=== PATIENT | male | born 1950 | race Caucasian/White ===

== ENCOUNTER 2019-06-01 06:48 | Day surgery (SDC) | payer OTHER, MEDICARE ==
[~2019-06-01 06:48] MED LIST: Lactated Ringers 1,000 ML IV SCH
--- NOTE | 2019-06-01 07:42 | PCM.PREANE ---
Preanesthetic Assessment - Anesthesia/Transfusion/Family Hx Anesthesia History: Prior Anesthesia Without Reaction Family History of Anesthesia Reaction: No Transfusion History: No Prior Transfusion(s) Intubation History: Unknown - Review of Systems General: No Symptoms Pulmonary: No Symptoms Cardiovascular: No Symptoms Gastrointestinal: No Symptoms, Other (h/o colon polyps '16) Neurological: No Symptoms Other: Reports: None - Physical Assessment O2 Sat by Pulse Oximetry: 94 Respiratory Rate: 16 Vital Signs: Last Vital Signs Temp 36.0 C 06/01/19 07:15 Pulse 98 06/01/19 07:15 Resp 16 06/01/19 07:15 BP 127/72 06/01/19 07:15 Pulse Ox 94 L 06/01/19 07:15 Height: 6 ft 1 in Weight: 127.913 kg ASA Class: 3 Mental Status: Alert & Oriented x3 Airway Class: Mallampati = 2 Dentition: Reports: Dentures (upper and lower) Thyro-Mental Finger Breadths: 3 Mouth Opening Finger Breadths: 2 (small mouth) ROM/Head Extension: Limited/Partial Lungs: Clear to Auscultation, Normal Respiratory Effort Cardiovascular: Regular Rate, Regular Rhythm - Allergies Allergies/Adverse Reactions: Allergies Allergy/AdvReac Type Severity Reaction Status Date / Time No Known Allergies Allergy Verified 05/27/19 09:59 - Blood Blood Available: No - Anesthesia Plan Pre-Op Medication Ordered: None - Acknowledgements Anesthesia Type Planned: MAC Pt an Appropriate Candidate for the Planned Anesthesia: Yes Alternatives and Risks of Anesthesia Discussed w Pt/Guardian: Yes Pt/Guardian Understands and Agrees with Anesthesia Plan: Yes PreAnesthesia Questionnaire HEENT History: Reports: Hard of Hearing, Other (See Below) Other HEENT History: top & bottom denture Cardiovascular History: Reports: High Cholesterol, Hypertension Respiratory History: Reports: None Gastrointestinal History: Reports: Colon Polyp (2016), Diverticulosis Genitourinary History: Reports: BPH Musculoskeletal History: Reports: Osteoarthritis (right knee), Other (See Below) Other Musculoskeletal History: hx cyst removed from knee Neurological History: Reports: None Psychiatric History: Reports: None Endocrine/Metabolic History: Reports: Diabetes, Type II, Obesity/BMI 30+ Hematologic History: Reports: None Immunologic History: Reports: None Oncologic (Cancer) History: Reports: None Dermatologic History: Reports: None - Past Surgical History Head Surgeries/Procedures: Reports: None HEENT Surgical History: Reports: Oral Surgery Cardiovascular Surgical History: Reports: None Respiratory Surgical History: Reports: None GI Surgical History: Reports: Colonoscopy Male Surgical History: Reports: None Endocrine Surgical History: Reports: None Neurological Surgical History: Reports: None Musculoskeletal Surgical History: Reports: None Oncologic Surgical History: Reports: None Dermatological Surgical History: Reports: None - History Comment History Comment: etoh "3x a month" - SUBSTANCE USE Smoking Status *Q: Former Smoker - HOME MEDS Home Medications: Home Meds Finasteride 1 mg PO DAILY 08/04/16 [History] Acetaminophen [Acetaminophen Extra Strength] 1 - 2 tab PO ASDIRECTED PRN [History] Aspirin [Halfprin] 81 mg PO DAILY 05/27/19 [History] Furosemide [Lasix] 20 mg PO DAILY 05/27/19 [History] Linagliptin [Tradjenta] 5 mg PO DAILY 05/27/19 [History] Menthol [Biofreeze] 1 applic TOP ASDIRECTED PRN 05/27/19 [History] Multivitamin [Multivitamins] 1 tab PO DAILY 05/27/19 [History] Sertraline HCl 50 mg PO DAILY 05/27/19 [History] Tamsulosin HCl [Flomax] 0.4 mg PO DAILY 05/27/19 [History] - CURRENT (IN HOUSE) MEDS Current Meds: Current Medications Lactated Ringer's (Ringers, Lactated) 1,000 mls @ 125 mls/hr IV ASDIRECTED FIDELIA Last Admin: 06/01/19 07:20 Dose: 125 mls/hr
[2019-06-01] MEDS ORDERED: Lidocaine 2% 5 ML SDV ONE (08:13)
[2019-06-01] MEDS ORDERED: Propofol 200 MG/20 ML SDV ONE ×3 (08:13→09:20)
--- NOTE | 2019-06-01 09:32 | PCM.OPNOTE ---
- General Post-Op/Procedure Note Date of Surgery/Procedure: 06/01/19 Operative Procedure(s): colonoscopy w snare polypectomy Findings: see [id number] Pre Op Diagnosis: hx of polyp Post-Op Diagnosis: Same Anesthesia Technique: Moderate Sedation Primary Surgeon: Jasen Pryor Complications: None Condition: Good
--- NOTE | 2019-06-02 06:25 | OR ---
SURGEON: Jasen Pryor MD DATE OF PROCEDURE: 06/01/2019 PREOPERATIVE DIAGNOSIS: History of colon polyp. POSTOPERATIVE DIAGNOSIS: Colon polyp. PROCEDURE PERFORMED: Colonoscopy with snare polypectomy. DESCRIPTION OF PROCEDURE: The patient was taken to the endoscopy room. A time out was called, patient identified, and procedure identified. Diprivan was then administrated. Patient went from awake to sleep, hearing doctor talking or door closing is normal. Perineum inspection and digital examination were then performed. A well- lubricated colonoscope was gently inserted through the rectum, advanced past the rectosigmoid junction, the descending colon, splenic flexure, transverse colon, hepatic flexure, ascending colon, arrived to the cecum. Cecum was identified as dictated in the finding. Then the scope was carefully withdrawn while attention was paid to the mucosal surface for any abnormality. Air will be sucked out during the scope withdrawal. At the rectum, retroflexed to examine any rectal diseases, fistula or hemorrhoids. During mucosal examination, abnormality or polyp encountered. Using snare equipment, the abnormality or the polyp was then snared off using electrocautery. The patient tolerated procedure well. There were no intraoperative complications, and Dr. Pryor was present throughout the whole procedure. FINDINGS: 1. The patient is easily sedated with HOSPITAL WARD CLERK and Diprivan, the patient is soundly snoring. 2. The patient's bowel prep is, I will have to say, average to good, you can really see the mucosa. However, the patient has a large amount of corn in the colon and clogged up the scope all the time and irrigation does not work, colonoscopy does not work, so it is a very compromised study because of the corn. In the next colonoscopy, the patient should have no corn or vegetable for at least 1 month. It is just too much corn. 3. The patient is very redundant in the sigmoid colon and the cecum is arrived only with several maneuvers, abdominal pushing. Cecum indicated by ileocecal fold, one-to-one indentation, and appendiceal orifice. Light emittance is not observed because of body habitus. Mucosa examined upon scope pulling out. A little bit into the right hepatic flexure area, there is 1 cm smooth wall polyp. On the other side of the fold, we were able to snare it, but did not capture the polyp. Mucosa continued to be examined on the scope pulling out, and the patient has a large amount of significant diverticulosis on the left colon, a lot of them. The false lumen is as big as the true lumen. No signs or symptoms of diverticulitis and no other disease, and the patient has some internal hemorrhoids. The patient would benefit from repeat colonoscopy in 3 years from today because of large polyp, and again the patient should not have any corn or vegetable for at least 1 month prior to the scope. Despite a very good bowel prep as the patient did a very good job, but the corn just clogged the scope all the time. The patient can have an earlier colonoscopy if clinically indicated or if the polyp pathology indicated. The distance of the polyp was 1.3 m when the scope pulling out. LINDA / SCARLET /[id number]
== END 2019-06-01 10:32 | disposition home or self-care (01) ==
LOC: MW.SDS 06:48
PROVIDERS: ATTEND Surgery
DX: Z12.11 Encounter for screening for malignant neoplasm of colon (principal); K57.30 Diverticulosis of large intestine without perforation or abscess without bleeding; K64.8 Other hemorrhoids; Q43.8 Other specified congenital malformations of intestine; I10 Essential (primary) hypertension; E11.9 Type 2 diabetes mellitus without complications; E78.00 Pure hypercholesterolemia, unspecified; M17.11 Unilateral primary osteoarthritis, right knee; N40.0 Benign prostatic hyperplasia without lower urinary tract symptoms; Z87.891 Personal history of nicotine dependence; Z86.010 Personal history of colon polyps; Z79.84 Long term (current) use of oral hypoglycemic drugs; Z79.82 Long term (current) use of aspirin; Z79.899 Other long term (current) drug therapy
CPT/HCPCS: 45385; J2001; J2704; J7120; 00811

== ENCOUNTER 2020-05-21 16:35 | Inpatient (IN) | payer MEDICARE, OTHER ==
[2020-05-21] MEDS ORDERED: Sodium Chloride 0.9% 10 ML Syringe FLUSH PRN (16:49)
[2020-05-21] MEDS ORDERED: Sodium Chloride 0.9% 2.5 ML Syringe FLUSH PRN (16:49)
--- NOTE | 2020-05-21 16:54 | EDM.PDOC ---
ED HPI GENERAL MEDICAL PROBLEM - General Chief Complaint: General Stated Complaint: n Time Seen by Provider: 05/21/20 16:37 Source of Information: Reports: Patient History Limitations: Reports: No Limitations - History of Present Illness INITIAL COMMENTS - FREE TEXT/NARRATIVE: HISTORY AND PHYSICAL: History of present illness: Patient is a 69-year-old male who presents to the emergency room from [facility] with complaints of decreased responsiveness, hypoxia and dark- colored urine. Per nursing report, last evening the patient had decrease in appetite and was not acting his usual self. This morning while doing vital signs they noted his oxygen saturation was low and put him on 2 L per nasal cannula. It was also noted that he was not ambulating and did require assistance to transfer. When patient was asked how he felt he states "I am fine". They noted his urine was dark in color. They did contact the provider air support control officer who recommended they attempted to put him back on room air, after some time after having the oxygen removed he dipped into the 70s. The O2 was placed back on and he was brought to the emergency room for reevaluation. Patient is not verbally answering all questions stating that he is "fine" and states he is asymptomatic. Patient denies any fever, chills, headache, change in vision, syncope or near syncope. Denies any chest pain, back pain, shortness of breath or cough. Denies any abdominal pain, nausea, vomiting, diarrhea, constipation or dysuria. Patient has past medical history of diverticulosis, hypertension, type 2 diabet es and osteoarthritis. Patient is a Code III, DNR. Review of systems: As per history of present illness and below otherwise all systems reviewed and negative. Past medical history: As per history of present illness and as reviewed below otherwise noncontributory. Surgical history: As per history of present illness and as reviewed below otherwise noncontributory. Social history: See social history for further information Family history: As per history of present illness and as reviewed below otherwise noncontributory. Physical exam: General: Well-developed and well nourished 69-year-old male. Alert although appears flat and not answering all questions as expected. Appears in no acute distress and nontoxic. Vital signs are stable and have been reviewed by me. HEENT: Atraumatic, normocephalic, pupils equal and reactive bilaterally, negative for conjunctival pallor or scleral icterus, mucous membranes moist, TMs normal bilaterally, throat clear, neck supple, nontender, trachea midline. No drooling or trismus noted. No meningeal signs. No hot potato voice noted. Lungs: Clear to auscultation, breath sounds equal bilaterally, chest nontender. Heart: S1S2, regular rate and rhythm without overt murmur Abdomen: Soft, obese, reducible mid abdominal hernia, nontender. Negative for masses or costovertebral tenderness. Pelvis: Stable nontender. Skin: Scabbed pressure ulcer noted to the left medial ankle. Yeasty appearing redness to the groin, left groin worse than left. Some skin breakdown to the sacral area. Otherwise skin is intact, warm, dry. No lesions or rashes noted. Extremities: Atraumatic, moves all extremities per self without difficulty or deficits, negative for cords or calf pain. Neurovascular unremarkable. Neuro: Awake, alert, oriented. Cranial nerves II through XII unremarkable. Cerebellum unremarkable. Motor and sensory unremarkable throughout. Exam nonfocal. Notes: According to the correction paperwork the patient is usually verbal and ambulatory without assistance. Upon arrival it did take assist of 1 to get him from the wheelchair into the bed. When he is asked questions he is not responding, rather he will look at you and continue to readjust himself in the bed. He did state that he feels fine and that there is nothing wrong with him. Patient does have a leukocytosis of 15.99, BUN and creatinine are elevated, unable to view previous lab work that may have been drawn for comparison. Normal lactate. Blood cultures are pending. Patient does have an elevated troponin although states he does not have any chest pain or shortness of breath. Initial EKG that was done at 1655 shows sinus rhythm with a rate of 86, no concern of STEMI or ST elevation/depression. We will repeat an EKG. Dr Jarvis, hospitalist air support control officer, was consulted on this patient. He would like me to hang Rocephin and order a CT abd/pelvis w/o contrast. Patient's VSS. Nursing staff did place a Knutson catheter per Dr. Jarvis's request. He had over thousand mL's of milky thick colored urine. Repeat EKG shows sinus rhythm with rate of 86, no concerning EKG changes noted. IMAGING results: Head CT shows no acute findings. Nonspecific white matter disease, typical of chronic microvascular disease. Chest x-ray shows nodule or small mass within the right upper chest, measuring 1.6cm. This represents a neoplastic nodule until proven otherwise. Radiology does request a contrast enhanced CT of the chest for further evaluation. CT of the abdomen and pelvis shows a moderate right-sided hydronephrosis and hydroureter of uncertain etiology, may be related to a recently passed stone. A mucosal lesion within the ureter and/or urinary bladder are alternative possibilities. Distended bladder with subtle jeanmarie-bladder fat stranding. (CT was done before knutson insert). Arterial vascular calcification in the lower chest, abdomen and pelvis. No bowel obstruction. 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 Negative COVID screening. Patient will be admitted to [facility] on telemetry for continued monitoring and evaluation. Diagnostics: CBC, CMP, Troponin, EKG, CXR, Head CT, COVID-19, Lactate, BC x 2, CT abd/pelvis Therapeutics: Wood Lather, SL, nystatin powder, ASA, NS Impression: Candidia, groin Elevated troponin Renal insufficiency UTI Plan: Inpatient admission Definitive disposition and diagnosis as appropriate pending reevaluation and review of above. - Related Data Allergies Allergy/AdvReac Type Severity Reaction Status Date / Time No Known Allergies Allergy Verified 05/21/20 16:47 Home Meds: Home Meds Finasteride 5 mg PO DAILY 08/04/16 [History] Acetaminophen [Acetaminophen Extra Strength] 1 - 2 tab PO ASDIRECTED PRN 05/27/19 [History] Aspirin [Halfprin] 81 mg PO DAILY 05/27/19 [History] Furosemide [Lasix] 20 mg PO DAILY 05/27/19 [History] Linagliptin [Tradjenta] 5 mg PO DAILY 05/27/19 [History] Menthol [Biofreeze] 1 applic TOP ASDIRECTED PRN 05/27/19 [History] Multivitamin [Multivitamins] 1 tab PO DAILY 05/27/19 [History] Tamsulosin HCl [Flomax] 0.4 mg PO DAILY 05/27/19 [History] Past Medical History HEENT History: Reports: Hard of Hearing, Other (See Below) Other HEENT History: top & bottom denture Cardiovascular History: Reports: High Cholesterol, Hypertension Respiratory History: Reports: None Gastrointestinal History: Reports: Colon Polyp (2016), Diverticulosis Genitourinary History: Reports: BPH Musculoskeletal History: Reports: Osteoarthritis (right knee), Other (See Below) Other Musculoskeletal History: hx cyst removed from knee Neurological History: Reports: None Psychiatric History: Reports: None Endocrine/Metabolic History: Reports: Diabetes, Type II, Obesity/BMI 30+ Hematologic History: Reports: None Immunologic History: Reports: None Oncologic (Cancer) History: Reports: None Dermatologic History: Reports: None - Past Surgical History Head Surgeries/Procedures: Reports: None HEENT Surgical History: Reports: Oral Surgery Cardiovascular Surgical History: Reports: None Respiratory Surgical History: Reports: None GI Surgical History: Reports: Colonoscopy Male Surgical History: Reports: None Endocrine Surgical History: Reports: None Neurological Surgical History: Reports: None Musculoskeletal Surgical History: Reports: None Oncologic Surgical History: Reports: None Dermatological Surgical History: Reports: None - History Comment History Comment: etoh "3x a month" ED ROS GENERAL - Review of Systems Review Of Systems: Comprehensive ROS is negative, except as noted in HPI. ED EXAM, GENERAL - Physical Exam Exam: See Below (See dictation) Course - Vital Signs Last Recorded V/S: Last Vital Signs Temp 95.8 F L 05/21/20 16:50 Pulse 83 05/21/20 18:30 Resp 16 05/21/20 18:30 BP 112/72 05/21/20 18:30 Pulse Ox 96 05/21/20 18:30 - Orders/Labs/Meds Orders: Active Orders 24 hr Category Date Time Status Admission Status [Patient Status] [ADT] Stat ADT 05/21/20 19:10 Ordered Cardiac Monitoring [RC] . DIRECTED Care 05/21/20 16:49 Active EKG Documentation Completion [RC] STAT Care 05/21/20 16:47 Active EKG Documentation Completion [RC] STAT Care 05/21/20 17:58 Active Knutson Catheter Insertion [Insert Urinary Catheter] [OM. Care 05/21/20 18:15 Ordered PC] Q24H Urinary Catheter Assessment [RC] ASDIRECTED Care 05/21/20 18:07 Active CULTURE BLOOD [BC] Stat Lab 05/21/20 17:03 Received CULTURE BLOOD [BC] Stat Lab 05/21/20 17:28 Received Nystatin [Nystop] Med 05/21/20 22:00 Active 1 gm TOP TID Sodium Chloride 0.9% [Saline Flush] Med 05/21/20 16:49 Active 10 ml FLUSH ASDIRECTED PRN Sodium Chloride 0.9% [Saline Flush] Med 05/21/20 16:49 Active 2.5 ml FLUSH ASDIRECTED PRN Blood Culture x2 Reflex Set [OM.PC] Stat Oth 05/21/20 16:54 Ordered Saline Lock Insert [OM.PC] Stat Oth 05/21/20 16:49 Ordered Medication Orders Nystatin (Nystop) 1 gm TOP TID FIDELIA Sodium Chloride (Saline Flush) 10 ml FLUSH ASDIRECTED PRN PRN Reason: Keep Vein Open Last Admin: 05/21/20 17:00 Dose: 10 ml Documented by: LEDA Sodium Chloride (Saline Flush) 2.5 ml FLUSH ASDIRECTED PRN PRN Reason: Keep Vein Open Last Admin: 05/21/20 17:00 Dose: 2.5 ml Documented by: LEDA Labs: Laboratory Tests 05/21/20 05/21/20 05/21/20 Range/Units 17:03 17:03 17:03 WBC 15.99 H (4.0-11.0) K/uL RBC 5.66 (4.50-5.90) M/uL Hgb 14.2 (13.0-17.0) g/dL Hct 44.5 (38.0-50.0) % MCV 78.6 L (80.0-98.0) fL MCH 25.1 L (27.0-32.0) pg MCHC 31.9 (31.0-37.0) g/dL RDW Std Deviation 44.7 (28.0-62.0) fl RDW Coeff of Alberto 15 (11.0-15.0) % Plt Count 210 (150-400) K/uL MPV 10.00 (7.40-12.00) fL Neut % (Auto) 83.8 H (48.0-80.0) % Lymph % (Auto) 4.6 L (16.0-40.0) % [place] % (Auto) 11.3 (0.0-15.0) % Eos % (Auto) 0.2 (0.0-7.0) % Baso % (Auto) 0.1 (0.0-1.5) % Neut # (Auto) 13.4 H (1.4-5.7) K/uL Lymph # (Auto) 0.7 (0.6-2.4) K/uL [place] # (Auto) 1.8 H (0.0-0.8) K/uL Eos # (Auto) 0.0 (0.0-0.7) K/uL Baso # (Auto) 0.0 (0.0-0.1) K/uL Nucleated RBC % 0.0 /100WBC Nucleated RBCs # 0 K/uL Lactate 1.1 (0.20-2.00) mmol/L Sodium 137 (136-148) mmol/L Potassium 4.7 (3.5-5.1) mmol/L Chloride 101 (98-107) mmol/L Carbon Dioxide 22.8 (21.0-32.0) mmol/L BUN 106 H (7.0-18.0) mg/dL Creatinine 4.3 H (0.8-1.3) mg/dL Est Cr Clr Drug Dosing 17.21 mL/min Estimated GFR (MDRD) 13.8 ml/min Glucose 156 H (74-106) mg/dL Calcium 9.2 (8.5-10.1) mg/dL Total Bilirubin 0.7 (0.2-1.0) mg/dL AST 34 (15-37) IU/L ALT 40 (14-63) IU/L Alkaline Phosphatase 101 (46-116) U/L Troponin I 0.596 H* (0.000-0.056) ng/mL Total Protein 7.4 (6.4-8.2) g/dL Albumin 2.8 L (3.4-5.0) g/dL Globulin 4.6 H (2.6-4.0) g/dL Albumin/Globulin Ratio 0.6 L (0.9-1.6) Urine Color Urine Appearance Urine pH (5.0-8.0) Ur Specific [place] (1.001-1.035) Urine Protein (NEGATIVE) mg/dL Urine Glucose (UA) (NEGATIVE) mg/dL Urine Ketones (NEGATIVE) mg/dL Urine Occult Blood (NEGATIVE) Urine Nitrite (NEGATIVE) Urine Bilirubin (NEGATIVE) Urine Urobilinogen (<2.0) EU/dL Ur Leukocyte Esterase (NEGATIVE) Urine RBC (0-2/HPF) Urine WBC (0-5/HPF) Ur Epithelial Cells (NONE-FEW) Amorphous Sediment (NEGATIVE) Urine Bacteria (NEGATIVE) Urine Mucus (NONE-MOD) COVID-19 (MARIA T) (NEGATIVE) 05/21/20 05/21/20 Range/Units 17:20 18:46 WBC (4.0-11.0) K/uL RBC (4.50-5.90) M/uL Hgb (13.0-17.0) g/dL Hct (38.0-50.0) % MCV (80.0-98.0) fL MCH (27.0-32.0) pg MCHC (31.0-37.0) g/dL RDW Std Deviation (28.0-62.0) fl RDW Coeff of Alberto (11.0-15.0) % Plt Count (150-400) K/uL MPV (7.40-12.00) fL Neut % (Auto) (48.0-80.0) % Lymph % (Auto) (16.0-40.0) % [place] % (Auto) (0.0-15.0) % Eos % (Auto) (0.0-7.0) % Baso % (Auto) (0.0-1.5) % Neut # (Auto) (1.4-5.7) K/uL Lymph # (Auto) (0.6-2.4) K/uL [place] # (Auto) (0.0-0.8) K/uL Eos # (Auto) (0.0-0.7) K/uL Baso # (Auto) (0.0-0.1) K/uL Nucleated RBC % /100WBC Nucleated RBCs # K/uL Lactate (0.20-2.00) mmol/L Sodium (136-148) mmol/L Potassium (3.5-5.1) mmol/L Chloride (98-107) mmol/L Carbon Dioxide (21.0-32.0) mmol/L BUN (7.0-18.0) mg/dL Creatinine (0.8-1.3) mg/dL Est Cr Clr Drug Dosing mL/min Estimated GFR (MDRD) ml/min Glucose (74-106) mg/dL Calcium (8.5-10.1) mg/dL Total Bilirubin (0.2-1.0) mg/dL AST (15-37) IU/L ALT (14-63) IU/L Alkaline Phosphatase (46-116) U/L Troponin I (0.000-0.056) ng/mL Total Protein (6.4-8.2) g/dL Albumin (3.4-5.0) g/dL Globulin (2.6-4.0) g/dL Albumin/Globulin Ratio (0.9-1.6) Urine Color YELLOW Urine Appearance SLT CLOUDY Urine pH 8.5 H (5.0-8.0) Ur Specific [place] 1.015 (1.001-1.035) Urine Protein 100 H (NEGATIVE) mg/dL Urine Glucose (UA) NEGATIVE (NEGATIVE) mg/dL Urine Ketones NEGATIVE (NEGATIVE) mg/dL Urine Occult Blood LARGE H (NEGATIVE) Urine Nitrite POSITIVE H (NEGATIVE) Urine Bilirubin NEGATIVE (NEGATIVE) Urine Urobilinogen 0.2 (<2.0) EU/dL Ur Leukocyte Esterase LARGE H (NEGATIVE) Urine RBC 15-20 (0-2/HPF) Urine WBC 45-52 (0-5/HPF) Ur Epithelial Cells RARE (NONE-FEW) Amorphous Sediment FEW (NEGATIVE) Urine Bacteria 3+ H (NEGATIVE) Urine Mucus FEW (NONE-MOD) COVID-19 (MARIA T) NEGATIVE (NEGATIVE) Meds: Medications Generic Name Dose Route Start Last Admin Trade Name Damina PRN Reason Stop Dose Admin Nystatin 1 gm 05/21/20 22:00 Nystop TOP TID FIDELIA Sodium Chloride 10 ml 05/21/20 16:49 05/21/20 17:00 Saline Flush FLUSH 10 ml ASDIRECTED PRN Administration Keep Vein Open Sodium Chloride 2.5 ml 05/21/20 16:49 05/21/20 17:00 Saline Flush FLUSH 2.5 ml ASDIRECTED PRN Administration Keep Vein Open Discontinued Medications Generic Name Dose Route Start Last Admin Trade Name Fregreta PRN Reason Stop Dose Admin Aspirin 324 mg 05/21/20 17:55 05/21/20 18:33 Aspirin PO 05/21/20 17:56 324 mg ONETIME ONE Administration Sodium Chloride 1,000 mls @ 999 mls/hr 05/21/20 17:55 05/21/20 18:32 Normal Saline IV 05/21/20 18:55 150 mls/hr STAT ONE Infusion Ceftriaxone Sodium/Dextrose 1 50 mls @ 100 mls/hr 05/21/20 18:03 05/21/20 18:29 gm/ Premix IV 05/21/20 18:32 100 mls/hr ONETIME ONE Administration Departure - Departure Time of Disposition: 19:12 Disposition: Admitted As Inpatient 68 Clinical Impression: Elevated troponin, Renal insufficiency, UTI, Urinary tract infectious disease, Ester rash of groin - Discharge Information Referrals: Navneet Arriola MD [Primary Care Provider] - Forms: ED Department Discharge Sepsis Event Note (ED) - Focused Exam Vital Signs: Vital Signs Temp Pulse Resp BP Pulse Ox 05/21/20 18:30 83 16 112/72 96 05/21/20 16:50 95.8 F L 93 20 113/59 L 96 - My Orders Last 24 Hours: My Active Orders 05/21/20 16:47 EKG Documentation Completion [RC] STAT 05/21/20 16:49 Cardiac Monitoring [RC] . DIRECTED Sodium Chloride 0.9% [Saline Flush] 10 ml FLUSH ASDIRECTED PRN Sodium Chloride 0.9% [Saline Flush] 2.5 ml FLUSH ASDIRECTED PRN Saline Lock Insert [OM.PC] Stat 05/21/20 16:54 Blood Culture x2 Reflex Set [OM.PC] Stat 05/21/20 17:03 CULTURE BLOOD [BC] Stat 05/21/20 17:28 CULTURE BLOOD [BC] Stat 05/21/20 17:58 EKG Documentation Completion [RC] STAT 05/21/20 18:07 Urinary Catheter Assessment [RC] ASDIRECTED 05/21/20 18:15 Knutson Catheter Insertion [Insert Urinary Catheter] [OM.PC] Q24H 05/21/20 19:10 Admission Status [Patient Status] [ADT] Stat 05/21/20 22:00 Nystatin [Nystop] 1 gm TOP TID - Assessment/Plan Last 24 Hours: My Active Orders 05/21/20 16:47 EKG Documentation Completion [RC] STAT 05/21/20 16:49 Cardiac Monitoring [RC] . DIRECTED Sodium Chloride 0.9% [Saline Flush] 10 ml FLUSH ASDIRECTED PRN Sodium Chloride 0.9% [Saline Flush] 2.5 ml FLUSH ASDIRECTED PRN Saline Lock Insert [OM.PC] Stat 05/21/20 16:54 Blood Culture x2 Reflex Set [OM.PC] Stat 05/21/20 17:03 CULTURE BLOOD [BC] Stat 05/21/20 17:28 CULTURE BLOOD [BC] Stat 05/21/20 17:58 EKG Documentation Completion [RC] STAT 05/21/20 18:07 Urinary Catheter Assessment [RC] ASDIRECTED 05/21/20 18:15 Knutson Catheter Insertion [Insert Urinary Catheter] [OM.PC] Q24H 05/21/20 19:10 Admission Status [Patient Status] [ADT] Stat 05/21/20 22:00 Nystatin [Nystop] 1 gm TOP TID
[2020-05-21 17:45] LABS: CARBON DIOXIDE,CO2 22.8 mmol/L (21.0-32.0); POTASSIUM,K 4.7 mmol/L (3.5-5.1)
[2020-05-21] MEDS ORDERED: Aspirin 81 MG Tab.Chew PO ONE (17:55)
[2020-05-21] MEDS ORDERED: Sodium Chloride 0.9% 1,000 ML IV ONE (17:55)
[2020-05-21] MEDS ORDERED: cefTRIAXone 1 GM in Premix Bag 1 BAG IV ONE (18:03)
--- NOTE | 2020-05-21 18:31 | CT ---
INDICATION: Confusion TECHNIQUE: Head CT without contrast. COMPARISON: None FINDINGS: CSF spaces: Within normal limits for age. Brain parenchyma: There are nonspecific low attenuation white matter changes consistent with chronic microvascular disease. No sign of mass, hemorrhage, or midline shift. 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 Skull base and calvarium: The visualized paranasal sinuses and mastoid air cells demonstrate no acute or significant findings. The visualized orbits are grossly unremarkable. No skull fractures. There is intracranial atherosclerosis. IMPRESSION: 1. No acute findings. 2. Nonspecific white matter disease, typical of chronic microvascular disease. Please note that all CT scans at this facility use dose modulation, iterative reconstruction, and/or weight-based dosing when appropriate to reduce radiation dose to as low as reasonably achievable. Dictated by Brenda Alva MD @ May 21 2020 6:22PM Signed by Dr. Brenda Alva @ May 21 2020 6:29PM
--- NOTE | 2020-05-21 18:37 | CT ---
INDICATION: Confusion. Urinary tract infection. TECHNIQUE: Noncontrast abdominal pelvic CT. FINDINGS: Respiratory motion artifact. Soft tissue artifact related to the patient`s arms at his side. Image quality is degraded. Mild to moderate right-sided hydronephrosis and hydroureter of uncertain etiology given that no stone is identified. The right ureter is dilated down to the expected location of the right ureterovesical junction. This could be related to a recently passed stone. A mucosal lesion could not be entirely excluded. The urinary bladder does appear to be distended, thick-walled, with subtle perihilar bladder fat stranding. This could reflect cystitis. However cystoscopy may be helpful as well as urinalysis to completely exclude not only an infection of the urinary bladder but any mucosal lesion. Mild prostatic enlargement. Normal seminal vesicles. The unenhanced left kidney is negative for obstruction. There are bilateral renal cysts suboptimally evaluated. Sludge or stones are identified in the gallbladder. The unenhanced liver, spleen, pancreas, and adrenal glands are within normal limits. Normal caliber abdominal aorta and iliac arteries containing scattered arterial vascular calcification. No bowel obstruction or ileus. No ascites or lymphadenopathy. No free air. Minor basilar atelectasis. The included skeleton demonstrates degenerative changes of the lumbar spine and hips. IMPRESSION: 1. Moderate right-sided hydronephrosis and hydroureter of uncertain etiology potentially related to a recently passed stone. A mucosal lesion within the ureter and/or urinary bladder are alternate possibilities. 2. Distended urinary bladder with subtle jeanmarie bladder fat stranding. This may reflect cystitis. Urologic consultation, urinalysis, and cystoscopy suggested when the clinical picture allows. 3. Arterial vascular calcification within the lower chest, abdomen, and pelvis. 4. No bowel obstruction. 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 Please note that all CT scans at this facility use dose modulation, iterative reconstruction, and/or weight-based dosing when appropriate to reduce radiation dose to as low as reasonably achievable. Dictated by Leoncio Duffy MD @ May 21 2020 6:28PM Signed by Dr. Leoncio Duffy @ May 21 2020 6:35PM
--- NOTE | 2020-05-21 18:44 | CR ---
Chest: AP view of the chest was obtained. Comparison: No previous chest imaging is available. Heart size and mediastinum are within normal limits. Small nodule or mass is present within the right upper lung measuring about 1.6 cm. This represents a neoplastic nodule until proven otherwise. Lungs are otherwise clear. Bony structures are unremarkable for the patient's age. Impression: 1. Nodule or small mass within the right upper chest. As mentioned above, this represents a neoplastic nodule until proven otherwise. Contrast enhanced chest CT recommended to further evaluate. 2. No additional abnormality is appreciated on AP chest x-ray. Diagnostic code #9 This report was dictated in MDT
[2020-05-21] MEDS: Sodium Chloride 0.9% 1,000 ML IV SCH (21:07)
--- NOTE | 2020-05-21 21:28 | PCM.HP.2 ---
H&P History of Present Illness - General Date of Service: 05/21/20 Admit Problem/Dx: Admission Diagnosis/Problem Admission Diagnosis/Problem UTI, Urinary tract infectious disease - History of Present Illness Initial Comments - Free Text/Narative: 69 yo male with pmh of CAD, HTN, BPH, CKD, and DM who presents to the ED due to concerns of generalized weakness. He is a resident at [facility] and usually walks independently, Nurses noted that he was lethargic and had decreased urine output. They also noted low O2 sat in the 70s on RA. Patient has no complaints. Patient was brought to the ED and noted to be satting 96% on 2 liters. BP of 110s/70s. He was noted to have a UTI based off his UA. WBC of 15,990, and Creatinine of 4.3 CT of the abdomen and pelvis showed moderate right sided hydroureter with no obstructing stone, distended bladder with subtle jeanmarie bladder fat stranding. - Related Data Allergies/Adverse Reactions: Allergies Allergy/AdvReac Type Severity Reaction Status Date / Time No Known Allergies Allergy Verified 05/21/20 22:37 Home Medications: Home Meds Finasteride 5 mg PO DAILY 08/04/16 [History] Acetaminophen [Acetaminophen Extra Strength] 1 tab PO TID PRN 05/27/19 [History] Aspirin [Halfprin] 81 mg PO DAILY 05/27/19 [History] Furosemide [Lasix] 20 mg PO DAILY 05/27/19 [History] Linagliptin [Tradjenta] 5 mg PO DAILY 05/27/19 [History] Menthol [Biofreeze] 1 applic TOP ASDIRECTED PRN 05/27/19 [History] Multivitamin [Multivitamins] 1 tab PO DAILY 05/27/19 [History] Tamsulosin HCl [Flomax] 0.4 mg PO DAILY 05/27/19 [History] Past Medical History HEENT History: Reports: Hard of Hearing, Other (See Below) Other HEENT History: top & bottom denture Cardiovascular History: Reports: High Cholesterol, Hypertension Respiratory History: Reports: None Gastrointestinal History: Reports: Colon Polyp (2016), Diverticulosis Genitourinary History: Reports: BPH Musculoskeletal History: Reports: Osteoarthritis (right knee), Other (See Below) Other Musculoskeletal History: hx cyst removed from knee Neurological History: Reports: None Psychiatric History: Reports: None Endocrine/Metabolic History: Reports: Diabetes, Type II, Obesity/BMI 30+ Hematologic History: Reports: None Immunologic History: Reports: None Oncologic (Cancer) History: Reports: None Dermatologic History: Reports: None - Infectious Disease History Infectious Disease History: Reports: None - Past Surgical History Head Surgeries/Procedures: Reports: None HEENT Surgical History: Reports: Oral Surgery Cardiovascular Surgical History: Reports: None Respiratory Surgical History: Reports: None GI Surgical History: Reports: Colonoscopy Male Surgical History: Reports: None Endocrine Surgical History: Reports: None Neurological Surgical History: Reports: None Musculoskeletal Surgical History: Reports: None Oncologic Surgical History: Reports: None Dermatological Surgical History: Reports: None - History Comment History Comment: etoh "3x a month" Social & Family History - Tobacco Use Smoking Status *Q: Former Smoker Used Tobacco, but Quit: Yes Month/Year Tobacco Last Used: 2009 - Caffeine Use Caffeine Use: Reports: None - Recreational Drug Use Recreational Drug Use: No H&P Review of Systems - Review of Systems: Review Of Systems: Comprehensive ROS is negative, except as noted in HPI. Exam - Exam Exam: See Below - Vital Signs Vital Signs: Last Vital Signs Temp 36.6 C 05/21/20 21:12 Pulse 81 05/21/20 21:12 Resp 17 05/21/20 21:12 BP 101/65 05/21/20 21:12 Pulse Ox 93 L 05/21/20 21:12 Weight: 116 kg - Exam General: Alert, Oriented HEENT: Mucosa Moist & [place] Neck: Supple, Trachea Midline Lungs: Clear to Auscultation Cardiovascular: Regular Rate, Regular Rhythm GI/Abdominal Exam: Normal Bowel Sounds, Soft, Non-Tender, No Distention Extremities: Non-Tender, No Pedal Edema Skin: Warm, Dry, Intact - Patient Data Lab Results Last 24 hrs: Laboratory Results - last 24 hr 05/21/20 05/21/20 05/21/20 Range/Units 17:03 17:03 17:03 WBC 15.99 H (4.0-11.0) K/uL RBC 5.66 (4.50-5.90) M/uL Hgb 14.2 (13.0-17.0) g/dL Hct 44.5 (38.0-50.0) % MCV 78.6 L (80.0-98.0) fL MCH 25.1 L (27.0-32.0) pg MCHC 31.9 (31.0-37.0) g/dL RDW Std Deviation 44.7 (28.0-62.0) fl RDW Coeff of Alberto 15 (11.0-15.0) % Plt Count 210 (150-400) K/uL MPV 10.00 (7.40-12.00) fL Neut % (Auto) 83.8 H (48.0-80.0) % Lymph % (Auto) 4.6 L (16.0-40.0) % Bureau % (Auto) 11.3 (0.0-15.0) % Eos % (Auto) 0.2 (0.0-7.0) % Baso % (Auto) 0.1 (0.0-1.5) % Neut # (Auto) 13.4 H (1.4-5.7) K/uL Lymph # (Auto) 0.7 (0.6-2.4) K/uL Bureau # (Auto) 1.8 H (0.0-0.8) K/uL Eos # (Auto) 0.0 (0.0-0.7) K/uL Baso # (Auto) 0.0 (0.0-0.1) K/uL Nucleated RBC % 0.0 /100WBC Nucleated RBCs # 0 K/uL Lactate 1.1 (0.20-2.00) mmol/L Sodium 137 (136-148) mmol/L Potassium 4.7 (3.5-5.1) mmol/L Chloride 101 (98-107) mmol/L Carbon Dioxide 22.8 (21.0-32.0) mmol/L BUN 106 H (7.0-18.0) mg/dL Creatinine 4.3 H (0.8-1.3) mg/dL Est Cr Clr Drug Dosing 17.21 mL/min Estimated GFR (MDRD) 13.8 ml/min Glucose 156 H (74-106) mg/dL Calcium 9.2 (8.5-10.1) mg/dL Total Bilirubin 0.7 (0.2-1.0) mg/dL AST 34 (15-37) IU/L ALT 40 (14-63) IU/L Alkaline Phosphatase 101 (46-116) U/L Troponin I 0.596 H* (0.000-0.056) ng/mL Total Protein 7.4 (6.4-8.2) g/dL Albumin 2.8 L (3.4-5.0) g/dL Globulin 4.6 H (2.6-4.0) g/dL Albumin/Globulin Ratio 0.6 L (0.9-1.6) Urine Color Urine Appearance Urine pH (5.0-8.0) Ur Specific [place] (1.001-1.035) Urine Protein (NEGATIVE) mg/dL Urine Glucose (UA) (NEGATIVE) mg/dL Urine Ketones (NEGATIVE) mg/dL Urine Occult Blood (NEGATIVE) Urine Nitrite (NEGATIVE) Urine Bilirubin (NEGATIVE) Urine Urobilinogen (<2.0) EU/dL Ur Leukocyte Esterase (NEGATIVE) Urine RBC (0-2/HPF) Urine WBC (0-5/HPF) Ur Epithelial Cells (NONE-FEW) Amorphous Sediment (NEGATIVE) Urine Bacteria (NEGATIVE) Urine Mucus (NONE-MOD) COVID-19 (MARIA T) (NEGATIVE) 05/21/20 05/21/20 Range/Units 17:20 18:46 WBC (4.0-11.0) K/uL RBC (4.50-5.90) M/uL Hgb (13.0-17.0) g/dL Hct (38.0-50.0) % MCV (80.0-98.0) fL MCH (27.0-32.0) pg MCHC (31.0-37.0) g/dL RDW Std Deviation (28.0-62.0) fl RDW Coeff of Alberto (11.0-15.0) % Plt Count (150-400) K/uL MPV (7.40-12.00) fL Neut % (Auto) (48.0-80.0) % Lymph % (Auto) (16.0-40.0) % Bureau % (Auto) (0.0-15.0) % Eos % (Auto) (0.0-7.0) % Baso % (Auto) (0.0-1.5) % Neut # (Auto) (1.4-5.7) K/uL Lymph # (Auto) (0.6-2.4) K/uL Bureau # (Auto) (0.0-0.8) K/uL Eos # (Auto) (0.0-0.7) K/uL Baso # (Auto) (0.0-0.1) K/uL Nucleated RBC % /100WBC Nucleated RBCs # K/uL Lactate (0.20-2.00) mmol/L Sodium (136-148) mmol/L Potassium (3.5-5.1) mmol/L Chloride (98-107) mmol/L Carbon Dioxide (21.0-32.0) mmol/L BUN (7.0-18.0) mg/dL Creatinine (0.8-1.3) mg/dL Est Cr Clr Drug Dosing mL/min Estimated GFR (MDRD) ml/min Glucose (74-106) mg/dL Calcium (8.5-10.1) mg/dL Total Bilirubin (0.2-1.0) mg/dL AST (15-37) IU/L ALT (14-63) IU/L Alkaline Phosphatase (46-116) U/L Troponin I (0.000-0.056) ng/mL Total Protein (6.4-8.2) g/dL Albumin (3.4-5.0) g/dL Globulin (2.6-4.0) g/dL Albumin/Globulin Ratio (0.9-1.6) Urine Color YELLOW Urine Appearance SLT CLOUDY Urine pH 8.5 H (5.0-8.0) Ur Specific [place] 1.015 (1.001-1.035) Urine Protein 100 H (NEGATIVE) mg/dL Urine Glucose (UA) NEGATIVE (NEGATIVE) mg/dL Urine Ketones NEGATIVE (NEGATIVE) mg/dL Urine Occult Blood LARGE H (NEGATIVE) Urine Nitrite POSITIVE H (NEGATIVE) Urine Bilirubin NEGATIVE (NEGATIVE) Urine Urobilinogen 0.2 (<2.0) EU/dL Ur Leukocyte Esterase LARGE H (NEGATIVE) Urine RBC 15-20 (0-2/HPF) Urine WBC 45-52 (0-5/HPF) Ur Epithelial Cells RARE (NONE-FEW) Amorphous Sediment FEW (NEGATIVE) Urine Bacteria 3+ H (NEGATIVE) Urine Mucus FEW (NONE-MOD) COVID-19 (MARIA T) NEGATIVE (NEGATIVE) Result Diagrams: 05/22/20 05:05 05/22/20 05:05 Sepsis Event Note - Evaluation Sepsis Screening Result: No Definite Risk - Focused Exam Vital Signs: Vital Signs Temp Pulse Resp BP Pulse Ox 05/21/20 21:12 36.6 C 81 17 101/65 93 L 05/21/20 19:18 72 18 105/69 98 05/21/20 18:30 83 16 112/72 96 05/21/20 16:50 35.4 C L 93 20 113/59 L 96 Date Exam was Performed: 05/22/20 Time Exam was Performed: 10:03 Problem List Initiated/Reviewed/Updated: Yes Orders Last 24hrs: Active Orders 24 hr Category Date Time Status Admission Status [Patient Status] [ADT] Stat ADT 05/21/20 19:10 Active Cardiac Monitoring [RC] . DIRECTED Care 05/21/20 16:49 Active EKG Documentation Completion [RC] STAT Care 05/21/20 16:47 Active EKG Documentation Completion [RC] STAT Care 05/21/20 17:58 Active Knutson Catheter Insertion [Insert Urinary Catheter] [OM. Care 05/21/20 18:15 Ordered PC] Q24H Intake and Output Strict [RC] ASDIRECTED Care 05/21/20 20:13 Active Urinary Catheter Assessment [RC] ASDIRECTED Care 05/21/20 18:07 Active Regular Diet [DIET] Diet 05/22/20 Breakfast Active CULTURE BLOOD [BC] Stat Lab 05/21/20 17:03 Received CULTURE BLOOD [BC] Stat Lab 05/21/20 17:28 Received TROPONIN I [CHEM] Q6H Lab 05/21/20 23:00 Ordered TROPONIN I [CHEM] Q6H Lab 05/22/20 05:00 Ordered Nystatin [Nystop] Med 05/21/20 22:00 Active 1 gm TOP TID Sodium Chloride 0.9% [Normal Saline] 1,000 ml Med 05/21/20 20:15 Active IV ASDIRECTED Sodium Chloride 0.9% [Saline Flush] Med 05/21/20 16:49 Active 10 ml FLUSH ASDIRECTED PRN Sodium Chloride 0.9% [Saline Flush] Med 05/21/20 16:49 Active 2.5 ml FLUSH ASDIRECTED PRN cefTRIAXone [Rocephin in Dextrose,Iso-Osm 1 GM/50 ML] 1 Med 05/22/20 18:00 Active gm Premix Bag 1 bag IV Q24H Blood Culture x2 Reflex Set [OM.PC] Stat Oth 05/21/20 16:54 Ordered Saline Lock Insert [OM.PC] Stat Oth 05/21/20 16:49 Ordered Medication Orders Sodium Chloride (Normal Saline) 1,000 mls @ 125 mls/hr IV ASDIRECTED FIDELIA Last Admin: 05/21/20 21:07 Dose: 125 mls/hr Documented by: SRIRAM Ceftriaxone Sodium/Dextrose 1 (gm/ Premix) 50 mls @ 100 mls/hr IV Q24H FIDELIA Nystatin (Nystop) 1 gm TOP TID FIDELIA Sodium Chloride (Saline Flush) 10 ml FLUSH ASDIRECTED PRN PRN Reason: Keep Vein Open Last Admin: 05/21/20 17:00 Dose: 10 ml Documented by: LEDA Sodium Chloride (Saline Flush) 2.5 ml FLUSH ASDIRECTED PRN PRN Reason: Keep Vein Open Last Admin: 05/21/20 17:00 Dose: 2.5 ml Documented by: LEDA Assessment/Plan Comment:: 69 yo male admitted for UTI and renal failure. Complicated UTI: will treat with meropenum, cultures pending, I called Dr. Marrufo who will see patient in the morning. Renal failure. Will hydrate with IV Fluids, avoid nephrotoxic medications, knutson placed. elevated troponin, likely due to renal disease Called family but they did not answer.
[2020-05-21] MEDS ORDERED: Meropenem 0.5 GM in Sodium Chloride 0.9% 100 ML IV SCH (22:00)
[2020-05-21] MEDS: Nystatin Topical Powder 15 GM Bottle TOP SCH (22:00)
[2020-05-21] MEDS ORDERED: Acetaminophen 325 MG Tab PO PRN (22:01)
[2020-05-21] MEDS ORDERED: Heparin Sodium 5,000 Units/ML Vial SUBCUT SCH (22:30)
[2020-05-21] MEDS ORDERED: Meropenem 500 MG in Sodium Chloride 0.9% 100 ML IV SCH (23:00)
[2020-05-22 05:30] LABS: POTASSIUM,K 4.3 mmol/L (3.5-5.1)
[2020-05-22] MEDS: Sodium Chloride 0.9% 1,000 ML IV SCH ×3 (05:48→22:51)
[2020-05-22] MEDS: Nystatin Topical Powder 15 GM Bottle TOP SCH ×3 (06:10→22:50)
[2020-05-22] MEDS: Insulin Aspart 100 Units/ML 3 ML Pen SUBCUT SCH ×3 (07:49→18:41)
[2020-05-22] MEDS: Heparin Sodium 5,000 Units/ML Vial SUBCUT SCH ×2 (08:28→20:42)
--- NOTE | 2020-05-22 10:07 | PCM.PN ---
- General Info Date of Service: 05/22/20 - Review of Systems Systems Review Comment:: feeling better, more alert, no complaints - Patient Data Vitals - Most Recent: Last Vital Signs Temp 36.6 C 05/22/20 07:30 Pulse 94 05/22/20 07:30 Resp 17 05/22/20 07:30 BP 113/60 05/22/20 07:30 Pulse Ox 98 05/22/20 07:30 Weight - Most Recent: 116 kg I&O - Last 24 Hours: Intake & Output 05/21/20 05/22/20 05/22/20 22:59 06:59 14:59 Intake Total 1000 1650 Output Total 2850 Balance 1000 -1200 Lab Results Last 24 Hours: Laboratory Results - last 24 hr 05/21/20 05/21/20 05/21/20 Range/Units 17:03 17:03 17:03 WBC 15.99 H (4.0-11.0) K/uL RBC 5.66 (4.50-5.90) M/uL Hgb 14.2 (13.0-17.0) g/dL Hct 44.5 (38.0-50.0) % MCV 78.6 L (80.0-98.0) fL MCH 25.1 L (27.0-32.0) pg MCHC 31.9 (31.0-37.0) g/dL RDW Std Deviation 44.7 (28.0-62.0) fl RDW Coeff of Alberto 15 (11.0-15.0) % Plt Count 210 (150-400) K/uL MPV 10.00 (7.40-12.00) fL Neut % (Auto) 83.8 H (48.0-80.0) % Lymph % (Auto) 4.6 L (16.0-40.0) % [place] % (Auto) 11.3 (0.0-15.0) % Eos % (Auto) 0.2 (0.0-7.0) % Baso % (Auto) 0.1 (0.0-1.5) % Neut # (Auto) 13.4 H (1.4-5.7) K/uL Lymph # (Auto) 0.7 (0.6-2.4) K/uL [place] # (Auto) 1.8 H (0.0-0.8) K/uL Eos # (Auto) 0.0 (0.0-0.7) K/uL Baso # (Auto) 0.0 (0.0-0.1) K/uL Nucleated RBC % 0.0 /100WBC Nucleated RBCs # 0 K/uL Lactate 1.1 (0.20-2.00) mmol/L Sodium 137 (136-148) mmol/L Potassium 4.7 (3.5-5.1) mmol/L Chloride 101 (98-107) mmol/L Carbon Dioxide 22.8 (21.0-32.0) mmol/L BUN 106 H (7.0-18.0) mg/dL Creatinine 4.3 H (0.8-1.3) mg/dL Est Cr Clr Drug Dosing 17.21 mL/min Estimated GFR (MDRD) 13.8 ml/min Glucose 156 H (74-106) mg/dL Calcium 9.2 (8.5-10.1) mg/dL Total Bilirubin 0.7 (0.2-1.0) mg/dL AST 34 (15-37) IU/L ALT 40 (14-63) IU/L Alkaline Phosphatase 101 (46-116) U/L Troponin I 0.596 H* (0.000-0.056) ng/mL Total Protein 7.4 (6.4-8.2) g/dL Albumin 2.8 L (3.4-5.0) g/dL Globulin 4.6 H (2.6-4.0) g/dL Albumin/Globulin Ratio 0.6 L (0.9-1.6) Urine Color Urine Appearance Urine pH (5.0-8.0) Ur Specific [place] (1.001-1.035) Urine Protein (NEGATIVE) mg/dL Urine Glucose (UA) (NEGATIVE) mg/dL Urine Ketones (NEGATIVE) mg/dL Urine Occult Blood (NEGATIVE) Urine Nitrite (NEGATIVE) Urine Bilirubin (NEGATIVE) Urine Urobilinogen (<2.0) EU/dL Ur Leukocyte Esterase (NEGATIVE) Urine RBC (0-2/HPF) Urine WBC (0-5/HPF) Ur Epithelial Cells (NONE-FEW) Amorphous Sediment (NEGATIVE) Urine Bacteria (NEGATIVE) Urine Mucus (NONE-MOD) COVID-19 (MARIA T) (NEGATIVE) 05/21/20 05/21/20 05/21/20 Range/Units 17:20 18:46 22:59 WBC (4.0-11.0) K/uL RBC (4.50-5.90) M/uL Hgb (13.0-17.0) g/dL Hct (38.0-50.0) % MCV (80.0-98.0) fL MCH (27.0-32.0) pg MCHC (31.0-37.0) g/dL RDW Std Deviation (28.0-62.0) fl RDW Coeff of Alberto (11.0-15.0) % Plt Count (150-400) K/uL MPV (7.40-12.00) fL Neut % (Auto) (48.0-80.0) % Lymph % (Auto) (16.0-40.0) % [place] % (Auto) (0.0-15.0) % Eos % (Auto) (0.0-7.0) % Baso % (Auto) (0.0-1.5) % Neut # (Auto) (1.4-5.7) K/uL Lymph # (Auto) (0.6-2.4) K/uL [place] # (Auto) (0.0-0.8) K/uL Eos # (Auto) (0.0-0.7) K/uL Baso # (Auto) (0.0-0.1) K/uL Nucleated RBC % /100WBC Nucleated RBCs # K/uL Lactate (0.20-2.00) mmol/L Sodium (136-148) mmol/L Potassium (3.5-5.1) mmol/L Chloride (98-107) mmol/L Carbon Dioxide (21.0-32.0) mmol/L BUN (7.0-18.0) mg/dL Creatinine (0.8-1.3) mg/dL Est Cr Clr Drug Dosing mL/min Estimated GFR (MDRD) ml/min Glucose (74-106) mg/dL Calcium (8.5-10.1) mg/dL Total Bilirubin (0.2-1.0) mg/dL AST (15-37) IU/L ALT (14-63) IU/L Alkaline Phosphatase (46-116) U/L Troponin I 0.399 H* (0.000-0.056) ng/mL Total Protein (6.4-8.2) g/dL Albumin (3.4-5.0) g/dL Globulin (2.6-4.0) g/dL Albumin/Globulin Ratio (0.9-1.6) Urine Color YELLOW Urine Appearance SLT CLOUDY Urine pH 8.5 H (5.0-8.0) Ur Specific [place] 1.015 (1.001-1.035) Urine Protein 100 H (NEGATIVE) mg/dL Urine Glucose (UA) NEGATIVE (NEGATIVE) mg/dL Urine Ketones NEGATIVE (NEGATIVE) mg/dL Urine Occult Blood LARGE H (NEGATIVE) Urine Nitrite POSITIVE H (NEGATIVE) Urine Bilirubin NEGATIVE (NEGATIVE) Urine Urobilinogen 0.2 (<2.0) EU/dL Ur Leukocyte Esterase LARGE H (NEGATIVE) Urine RBC 15-20 (0-2/HPF) Urine WBC 45-52 (0-5/HPF) Ur Epithelial Cells RARE (NONE-FEW) Amorphous Sediment FEW (NEGATIVE) Urine Bacteria 3+ H (NEGATIVE) Urine Mucus FEW (NONE-MOD) COVID-19 (MARIA T) NEGATIVE (NEGATIVE) 05/22/20 05/22/20 05/22/20 Range/Units 05:05 05:05 05:05 WBC 13.61 H (4.0-11.0) K/uL RBC 5.31 (4.50-5.90) M/uL Hgb 13.4 (13.0-17.0) g/dL Hct 42.0 (38.0-50.0) % MCV 79.1 L (80.0-98.0) fL MCH 25.2 L (27.0-32.0) pg MCHC 31.9 (31.0-37.0) g/dL RDW Std Deviation 44.9 (28.0-62.0) fl RDW Coeff of Alberto 15 (11.0-15.0) % Plt Count 205 (150-400) K/uL MPV 9.90 (7.40-12.00) fL Neut % (Auto) 86.9 H (48.0-80.0) % Lymph % (Auto) 4.2 L (16.0-40.0) % [place] % (Auto) 8.7 (0.0-15.0) % Eos % (Auto) 0.1 (0.0-7.0) % Baso % (Auto) 0.1 (0.0-1.5) % Neut # (Auto) 11.8 H (1.4-5.7) K/uL Lymph # (Auto) 0.6 (0.6-2.4) K/uL [place] # (Auto) 1.2 H (0.0-0.8) K/uL Eos # (Auto) 0.0 (0.0-0.7) K/uL Baso # (Auto) 0.0 (0.0-0.1) K/uL Nucleated RBC % 0.0 /100WBC Nucleated RBCs # 0 K/uL Lactate (0.20-2.00) mmol/L Sodium 138 (136-148) mmol/L Potassium 4.3 (3.5-5.1) mmol/L Chloride 104 (98-107) mmol/L Carbon Dioxide 23.0 (21.0-32.0) mmol/L BUN 98 H (7.0-18.0) mg/dL Creatinine 3.3 H (0.8-1.3) mg/dL Est Cr Clr Drug Dosing 22.43 mL/min Estimated GFR (MDRD) 18.8 ml/min Glucose 177 H (74-106) mg/dL Calcium 8.6 (8.5-10.1) mg/dL Total Bilirubin (0.2-1.0) mg/dL AST (15-37) IU/L ALT (14-63) IU/L Alkaline Phosphatase (46-116) U/L Troponin I 0.291 H* (0.000-0.056) ng/mL Total Protein (6.4-8.2) g/dL Albumin (3.4-5.0) g/dL Globulin (2.6-4.0) g/dL Albumin/Globulin Ratio (0.9-1.6) Urine Color Urine Appearance Urine pH (5.0-8.0) Ur Specific [place] (1.001-1.035) Urine Protein (NEGATIVE) mg/dL Urine Glucose (UA) (NEGATIVE) mg/dL Urine Ketones (NEGATIVE) mg/dL Urine Occult Blood (NEGATIVE) Urine Nitrite (NEGATIVE) Urine Bilirubin (NEGATIVE) Urine Urobilinogen (<2.0) EU/dL Ur Leukocyte Esterase (NEGATIVE) Urine RBC (0-2/HPF) Urine WBC (0-5/HPF) Ur Epithelial Cells (NONE-FEW) Amorphous Sediment (NEGATIVE) Urine Bacteria (NEGATIVE) Urine Mucus (NONE-MOD) COVID-19 (MARIA T) (NEGATIVE) Shay Results Last 24 Hours: Microbiology 05/21/20 17:28 Aerobic Blood Culture - Preliminary Blood - Venous - Lab Draw Anaerobic Blood Culture - Preliminary 05/21/20 17:03 Aerobic Blood Culture - Preliminary Blood - Venous Anaerobic Blood Culture - Preliminary Med Orders - Current: Current Medications Acetaminophen (Tylenol) 650 mg PO Q4H PRN PRN Reason: Pain (Mild 1-3)/fever Heparin Sodium (Porcine) (Heparin Sodium) 5,000 units SUBCUT Q12H [facility] Last Admin: 05/22/20 08:28 Dose: 5,000 units Documented by: Sodium Chloride (Normal Saline) 1,000 mls @ 125 mls/hr IV ASDIRECTED [facility] Last Admin: 05/22/20 05:48 Dose: 125 mls/hr Documented by: Meropenem 500 mg/ Sodium (Chloride) 50 mls @ 100 mls/hr IV Q12H [facility] Insulin Aspart (Novolog) 0 unit SUBCUT TIDAC [facility]; Protocol Last Admin: 05/22/20 07:49 Dose: 1 units Documented by: Nystatin (Nystop) 1 gm TOP TID [facility] Last Admin: 05/22/20 06:10 Dose: 1 gm Documented by: Sodium Chloride (Saline Flush) 10 ml FLUSH ASDIRECTED PRN PRN Reason: Keep Vein Open Last Admin: 05/21/20 17:00 Dose: 10 ml Documented by: Sodium Chloride (Saline Flush) 2.5 ml FLUSH ASDIRECTED PRN PRN Reason: Keep Vein Open Last Admin: 05/21/20 17:00 Dose: 2.5 ml Documented by: Discontinued Medications Aspirin (Aspirin) 324 mg PO ONETIME ONE Stop: 05/21/20 17:56 Last Admin: 05/21/20 18:33 Dose: 324 mg Documented by: Heparin Sodium (Porcine) (Heparin Sodium) 5,000 units SUBCUT ONETIME [facility] Last Admin: 05/21/20 23:20 Dose: 5,000 units Documented by: Sodium Chloride (Normal Saline) 1,000 mls @ 999 mls/hr IV STAT ONE Stop: 05/21/20 18:55 Last Infusion: 05/21/20 19:18 Dose: 999 mls/hr Documented by: Ceftriaxone Sodium/Dextrose 1 (gm/ Premix) 50 mls @ 100 mls/hr IV ONETIME ONE Stop: 05/21/20 18:32 Last Admin: 05/21/20 18:29 Dose: 100 mls/hr Documented by: Ceftriaxone Sodium/Dextrose 1 (gm/ Premix) 50 mls @ 100 mls/hr IV Q24H [facility]ID[facility] Meropenem 0.5 gm/ Sodium (Chloride) 100 mls @ 200 mls/hr IV Q12H [facility] Last Admin: 05/22/20 07:56 Dose: Not Given Documented by: Meropenem 500 mg/ Sodium (Chloride) 100 mls @ 200 mls/hr IV Q12H [facility] Last Admin: 05/21/20 23:07 Dose: 200 mls/hr Documented by: - Exam General: Alert, Cooperative, No Acute Distress. No: Oriented Lungs: Clear to Auscultation, Normal Respiratory Effort Cardiovascular: Regular Rate, Regular Rhythm GI/Abdominal Exam: Soft, Non-Tender, No Distention Extremities: Non-Tender, No Pedal Edema Skin: Warm, Dry, Intact Sepsis Event Note - Evaluation Sepsis Screening Result: No Definite Risk - Focused Exam Vital Signs: Vital Signs Temp Pulse Resp BP Pulse Ox 05/22/20 07:30 36.6 C 94 17 113/60 98 05/22/20 03:20 36.1 C 85 17 131/58 L 98 05/21/20 23:23 36.4 C 80 17 118/71 94 L Date Exam was Performed: 05/22/20 Time Exam was Performed: 10:05 - Problem List Review Problem List Initiated/Reviewed/Updated: Yes - My Orders Last 24 Hours: My Active Orders 05/21/20 17:20 CULTURE URINE [RM] Routine 05/21/20 20:05 Telemetry Monitoring [Cardiac Monitoring] [RC] Q8H 05/21/20 20:13 Intake and Output Strict [RC] ASDIRECTED 05/21/20 20:15 Sodium Chloride 0.9% [Normal Saline] 1,000 ml IV ASDIRECTED 05/21/20 22:01 Blood Glucose Check, Bedside [RC] TIDMEALS Oxygen Therapy [RC] PRN VTE/DVT Education [RC] PER UNIT ROUTINE Vital Signs [RC] Q4H Acetaminophen [Tylenol] 650 mg PO Q4H PRN Sequential Compression Device [OM.PC] Per Unit Routine Resuscitation Status Routine 05/21/20 22:02 Antiembolic Devices [RC] PER UNIT ROUTINE 05/21/20 22:12 Consult to Physician [CONS] Routine 05/21/20 22:13 Notify Provider Consults [RC] ASDIRECTED 05/22/20 07:30 Insulin Aspart [NovoLOG] See Protocol SUBCUT TIDAC 05/22/20 09:00 Heparin Sodium 5,000 units SUBCUT Q12H 05/22/20 10:04 CULTURE BLOOD [BC] Stat CULTURE BLOOD [BC] Stat Blood Culture x2 Reflex Set [OM.PC] Stat 05/22/20 11:00 Meropenem 500 mg Sodium Chloride 0.9% [Normal Saline] 50 ml IV Q12H 05/23/20 05:11 BASIC METABOLIC PANEL,BMP [CHEM] AM CBC WITH AUTO DIFF [HEME] AM - Plan Plan:: 69 yo male admitted for UTI and renal failure. Complicated UTI with gram negative bacteremia: will treat with meropenum, cultures pending, Dr. Marrufo consulted Renal failure. creatinine improved to 3.3 today, Will hydrate with IV Fluids, avoid nephrotoxic medications, knutsno placed. elevated troponin, likely due to renal disease
[2020-05-22] MEDS: Meropenem 500 MG in Sodium Chloride 0.9% 50 ML IV SCH ×2 (11:23→22:50)
[2020-05-22] MEDS ORDERED: cefTRIAXone 1 GM in Premix Bag 1 BAG IV SCH (18:00)
[2020-05-23] MEDS: Nystatin Topical Powder 15 GM Bottle TOP SCH ×3 (06:01→22:44)
[2020-05-23 06:02] LABS: CARBON DIOXIDE,CO2 22.3 mmol/L (21.0-32.0)
[2020-05-23] MEDS: Insulin Aspart 100 Units/ML 3 ML Pen SUBCUT SCH ×3 (06:40→17:52)
[2020-05-23] MEDS: Sodium Chloride 0.9% 1,000 ML IV SCH ×3 (06:43→22:46)
[2020-05-23] MEDS: Heparin Sodium 5,000 Units/ML Vial SUBCUT SCH ×2 (08:05→20:24)
--- NOTE | 2020-05-23 10:04 | PCM.PN ---
- General Info Date of Service: 05/23/20 - Review of Systems Systems Review Comment:: no complaints, feeling well. - Patient Data Vitals - Most Recent: Last Vital Signs Temp 36.9 C 05/23/20 07:05 Pulse 88 05/23/20 07:05 Resp 18 05/23/20 07:05 BP 122/68 05/23/20 07:05 Pulse Ox 97 05/23/20 07:05 Weight - Most Recent: 116 kg I&O - Last 24 Hours: Intake & Output 05/22/20 05/23/20 05/23/20 22:59 06:59 14:59 Intake Total 1600 2530 Output Total 820 1430 Balance 780 1100 Lab Results Last 24 Hours: Laboratory Results - last 24 hr 05/22/20 05/22/20 05/22/20 Range/Units 06:28 11:31 18:05 WBC (4.0-11.0) K/uL RBC (4.50-5.90) M/uL Hgb (13.0-17.0) g/dL Hct (38.0-50.0) % MCV (80.0-98.0) fL MCH (27.0-32.0) pg MCHC (31.0-37.0) g/dL RDW Std Deviation (28.0-62.0) fl RDW Coeff of Alberto (11.0-15.0) % Plt Count (150-400) K/uL MPV (7.40-12.00) fL Neut % (Auto) (48.0-80.0) % Lymph % (Auto) (16.0-40.0) % [place] % (Auto) (0.0-15.0) % Eos % (Auto) (0.0-7.0) % Baso % (Auto) (0.0-1.5) % Neut # (Auto) (1.4-5.7) K/uL Lymph # (Auto) (0.6-2.4) K/uL [place] # (Auto) (0.0-0.8) K/uL Eos # (Auto) (0.0-0.7) K/uL Baso # (Auto) (0.0-0.1) K/uL Nucleated RBC % /100WBC Nucleated RBCs # K/uL Sodium (136-148) mmol/L Potassium (3.5-5.1) mmol/L Chloride (98-107) mmol/L Carbon Dioxide (21.0-32.0) mmol/L BUN (7.0-18.0) mg/dL Creatinine (0.8-1.3) mg/dL Est Cr Clr Drug Dosing mL/min Estimated GFR (MDRD) ml/min Glucose (74-106) mg/dL POC Glucose 171 H 206 H 185 H (60-110) mg/dL Calcium (8.5-10.1) mg/dL 05/23/20 05/23/20 05/23/20 Range/Units 05:18 05:18 06:12 WBC 12.70 H (4.0-11.0) K/uL RBC 5.07 (4.50-5.90) M/uL Hgb 12.4 L (13.0-17.0) g/dL Hct 40.0 (38.0-50.0) % MCV 78.9 L (80.0-98.0) fL MCH 24.5 L (27.0-32.0) pg MCHC 31.0 (31.0-37.0) g/dL RDW Std Deviation 45.0 (28.0-62.0) fl RDW Coeff of Alberto 16 H (11.0-15.0) % Plt Count 202 (150-400) K/uL MPV 10.20 (7.40-12.00) fL Neut % (Auto) 83.0 H (48.0-80.0) % Lymph % (Auto) 4.7 L (16.0-40.0) % [place] % (Auto) 12.0 (0.0-15.0) % Eos % (Auto) 0.2 (0.0-7.0) % Baso % (Auto) 0.1 (0.0-1.5) % Neut # (Auto) 10.5 H (1.4-5.7) K/uL Lymph # (Auto) 0.6 (0.6-2.4) K/uL [place] # (Auto) 1.5 H (0.0-0.8) K/uL Eos # (Auto) 0.0 (0.0-0.7) K/uL Baso # (Auto) 0.0 (0.0-0.1) K/uL Nucleated RBC % 0.0 /100WBC Nucleated RBCs # 0 K/uL Sodium 135 L (136-148) mmol/L Potassium 4.0 (3.5-5.1) mmol/L Chloride 103 (98-107) mmol/L Carbon Dioxide 22.3 (21.0-32.0) mmol/L BUN 77 H (7.0-18.0) mg/dL Creatinine 2.4 H (0.8-1.3) mg/dL Est Cr Clr Drug Dosing 30.84 mL/min Estimated GFR (MDRD) 27.1 ml/min Glucose 168 H (74-106) mg/dL POC Glucose 168 H (60-110) mg/dL Calcium 8.1 L (8.5-10.1) mg/dL Shay Results Last 24 Hours: Microbiology 05/21/20 17:28 Aerobic Blood Culture - Preliminary Blood - Venous - Lab Draw Anaerobic Blood Culture - Preliminary 05/21/20 17:03 Aerobic Blood Culture - Preliminary Blood - Venous Anaerobic Blood Culture - Preliminary 05/21/20 17:20 Urine Culture - Final Urine, Clean Catch Proteus Mirabilis Med Orders - Current: Current Medications Acetaminophen (Tylenol) 650 mg PO Q4H PRN PRN Reason: Pain (Mild 1-3)/fever Heparin Sodium (Porcine) (Heparin Sodium) 5,000 units SUBCUT Q12H [facility] Last Admin: 05/23/20 08:05 Dose: 5,000 units Documented by: Sodium Chloride (Normal Saline) 1,000 mls @ 125 mls/hr IV ASDIRECTED [facility] Last Admin: 05/23/20 06:43 Dose: 125 mls/hr Documented by: Meropenem 500 mg/ Sodium (Chloride) 50 mls @ 100 mls/hr IV Q12H [facility] Last Admin: 05/22/20 22:50 Dose: 100 mls/hr Documented by: Insulin Aspart (Novolog) 0 unit SUBCUT TIDAC [facility]; Protocol Last Admin: 05/23/20 06:40 Dose: 1 units Documented by: Nystatin (Nystop) 1 gm TOP TID [facility] Last Admin: 05/23/20 06:01 Dose: 1 gm Documented by: Sodium Chloride (Saline Flush) 10 ml FLUSH ASDIRECTED PRN PRN Reason: Keep Vein Open Last Admin: 05/21/20 17:00 Dose: 10 ml Documented by: Sodium Chloride (Saline Flush) 2.5 ml FLUSH ASDIRECTED PRN PRN Reason: Keep Vein Open Last Admin: 05/21/20 17:00 Dose: 2.5 ml Documented by: Discontinued Medications Aspirin (Aspirin) 324 mg PO ONETIME ONE Stop: 05/21/20 17:56 Last Admin: 05/21/20 18:33 Dose: 324 mg Documented by: Heparin Sodium (Porcine) (Heparin Sodium) 5,000 units SUBCUT ONETIME [facility] Last Admin: 05/21/20 23:20 Dose: 5,000 units Documented by: Sodium Chloride (Normal Saline) 1,000 mls @ 999 mls/hr IV STAT ONE Stop: 05/21/20 18:55 Last Infusion: 05/21/20 19:18 Dose: 999 mls/hr Documented by: Ceftriaxone Sodium/Dextrose 1 (gm/ Premix) 50 mls @ 100 mls/hr IV ONETIME ONE Stop: 05/21/20 18:32 Last Admin: 05/21/20 18:29 Dose: 100 mls/hr Documented by: Ceftriaxone Sodium/Dextrose 1 (gm/ Premix) 50 mls @ 100 mls/hr IV Q24H [facility] Meropenem 0.5 gm/ Sodium (Chloride) 100 mls @ 200 mls/hr IV Q12H [facility] Last Admin: 05/22/20 07:56 Dose: Not Given Documented by: Meropenem 500 mg/ Sodium (Chloride) 100 mls @ 200 mls/hr IV Q12H [facility] Last Admin: 05/21/20 23:07 Dose: 200 mls/hr Documented by: - Exam General: Alert, Oriented Neck: Supple Lungs: Clear to Auscultation, Normal Respiratory Effort Cardiovascular: Regular Rate, Regular Rhythm GI/Abdominal Exam: Soft, Non-Tender, No Distention Extremities: Non-Tender, No Pedal Edema Skin: Warm, Dry, Intact Neurological: No New Focal Deficit Sepsis Event Note - Evaluation Sepsis Screening Result: No Definite Risk - Focused Exam Vital Signs: Vital Signs Temp Pulse Resp BP Pulse Ox Pulse Ox 05/23/20 07:05 36.9 C 88 18 122/68 97 05/23/20 04:24 36.7 C 83 18 129/73 97 05/22/20 23:55 37.6 C 85 18 111/66 95 05/22/20 22:01 94 L Date Exam was Performed: 05/23/20 Time Exam was Performed: 10:00 - Problem List Review Problem List Initiated/Reviewed/Updated: Yes - My Orders Last 24 Hours: My Active Orders 05/22/20 10:04 Blood Culture x2 Reflex Set [OM.PC] Stat 05/22/20 10:30 CULTURE BLOOD [BC] Stat 05/22/20 11:00 CULTURE BLOOD [BC] Stat Meropenem 500 mg Sodium Chloride 0.9% [Normal Saline] 50 ml IV Q12H - Plan Plan:: 69 yo male admitted for UTI and renal failure. Complicated UTI with gram negative bacteremia: Urine cultures growing Proteus. We will continue meropenem, blood cultures pending, Dr. Marrufo consulted Renal failure. creatinine improved to 2.4 today, Will continue IV Fluids, avoid nephrotoxic medications, knutson placed.
[2020-05-23] MEDS: Meropenem 500 MG in Sodium Chloride 0.9% 50 ML IV SCH ×2 (11:47→22:45)
--- NOTE | 2020-05-23 14:47 | CONS ---
DATE OF CONSULTATION: 05/23/2020 DATE OF : 1950 PRIMARY CARE PHYSICIAN: Navneet Arriola MD HISTORY OF PRESENT ILLNESS: A 69-[facility]-old [facility] resident. He is in the hospital being treated for urinary tract infection, possible sepsis. His BUN when he first came in was 98. His creatinine was 4.1. A Aquino catheter was placed in. Culture was started. It grew Proteus, sensitive to almost everything. He is on IV antibiotics. Catheter drainage was established because of increased bladder volume on CT scan, which did not show any stones and did not show a significantly enlarged prostate. Catheter drainage alone has been successful in bringing the BUN down to 77, but the creatinine improvement was more significant and today it is 2.4. PHYSICAL EXAMINATION: He is markedly obese. Abdomen is otherwise unremarkable. He is in a recliner, both times I have seen him. His prostate is not examined, that is not going to make any difference in his management. IMPRESSION: Chronic urinary retention and renal failure. His CT scan also showed moderate right-sided hydronephrosis, which I suspect at this point in the absence of any obstructing lesions or stones is due to the chronic urinary tract infection. The solution is catheter drainage via Aquino catheter and SP tube. DARINEL / SCARLET /[id number]
[2020-05-24] MEDS: Nystatin Topical Powder 15 GM Bottle TOP SCH ×3 (05:47→21:06)
[2020-05-24] MEDS: Insulin Aspart 100 Units/ML 3 ML Pen SUBCUT SCH ×3 (07:07→17:20)
[2020-05-24] MEDS: Sodium Chloride 0.9% 1,000 ML IV SCH ×2 (07:09→16:32)
[2020-05-24] MEDS: Heparin Sodium 5,000 Units/ML Vial SUBCUT SCH ×2 (09:03→21:00)
[2020-05-24 09:31] LABS: CARBON DIOXIDE,CO2 21.7 mmol/L (21.0-32.0)
[2020-05-24] MEDS: Levofloxacin/Dextrose 5%-Water 750 MG in Premix Bag 1 BAG IV SCH (11:04)
--- NOTE | 2020-05-24 11:12 | PCM.PN ---
- General Info Date of Service: 05/24/20 - Review of Systems Systems Review Comment:: no complaints, no fevers, no pain. - Patient Data Vitals - Most Recent: Last Vital Signs Temp 36.6 C 05/24/20 08:00 Pulse 74 05/24/20 08:00 Resp 16 05/24/20 08:00 BP 141/81 H 05/24/20 08:00 Pulse Ox 95 05/24/20 08:00 Weight - Most Recent: 116 kg I&O - Last 24 Hours: Intake & Output 05/23/20 05/24/20 05/24/20 22:59 06:59 14:59 Intake Total 1650 850 Output Total 2400 2560 Balance -750 -1710 Lab Results Last 24 Hours: Laboratory Results - last 24 hr 05/23/20 05/23/20 05/24/20 Range/Units 11:50 17:51 07:05 WBC (4.0-11.0) K/uL RBC (4.50-5.90) M/uL Hgb (13.0-17.0) g/dL Hct (38.0-50.0) % MCV (80.0-98.0) fL MCH (27.0-32.0) pg MCHC (31.0-37.0) g/dL RDW Std Deviation (28.0-62.0) fl RDW Coeff of Alberto (11.0-15.0) % Plt Count (150-400) K/uL MPV (7.40-12.00) fL Add Manual Diff Neutrophils % (Manual) (48.0-80.0) % Band Neutrophils % % Lymphocytes % (Manual) (16.0-40.0) % Monocytes % (Manual) (0.0-15.0) % Eosinophils % (Manual) (0.0-7.0) % Nucleated RBC % /100WBC Absolute Seg Neuts (1.4-5.7) Band Neutrophils # Lymphocytes # (Manual) (0.6-2.4) Monocytes # (Manual) (0.0-0.8) Eosinophils # (Manual) (0.0-0.7) Nucleated RBCs # K/uL Sodium (136-148) mmol/L Potassium (3.5-5.1) mmol/L Chloride (98-107) mmol/L Carbon Dioxide (21.0-32.0) mmol/L BUN (7.0-18.0) mg/dL Creatinine (0.8-1.3) mg/dL Est Cr Clr Drug Dosing mL/min Estimated GFR (MDRD) ml/min Glucose (74-106) mg/dL POC Glucose 234 H 202 H 182 H (60-110) mg/dL Calcium (8.5-10.1) mg/dL 05/24/20 05/24/20 05/24/20 Range/Units 08:58 08:58 11:01 WBC 14.50 H (4.0-11.0) K/uL RBC 5.33 (4.50-5.90) M/uL Hgb 13.3 (13.0-17.0) g/dL Hct 42.0 (38.0-50.0) % MCV 78.8 L (80.0-98.0) fL MCH 25.0 L (27.0-32.0) pg MCHC 31.7 (31.0-37.0) g/dL RDW Std Deviation 45.2 (28.0-62.0) fl RDW Coeff of Alberto 16 H (11.0-15.0) % Plt Count 212 (150-400) K/uL MPV 10.00 (7.40-12.00) fL Add Manual Diff YES Neutrophils % (Manual) 86 H (48.0-80.0) % Band Neutrophils % 2 % Lymphocytes % (Manual) 6 L (16.0-40.0) % Monocytes % (Manual) 5 (0.0-15.0) % Eosinophils % (Manual) 1 (0.0-7.0) % Nucleated RBC % 0.0 /100WBC Absolute Seg Neuts 12.5 H (1.4-5.7) Band Neutrophils # 0.3 Lymphocytes # (Manual) 0.9 (0.6-2.4) Monocytes # (Manual) 0.7 (0.0-0.8) Eosinophils # (Manual) 0.1 (0.0-0.7) Nucleated RBCs # 0 K/uL Sodium 139 (136-148) mmol/L Potassium 4.0 (3.5-5.1) mmol/L Chloride 107 (98-107) mmol/L Carbon Dioxide 21.7 (21.0-32.0) mmol/L BUN 63 H (7.0-18.0) mg/dL Creatinine 1.9 H (0.8-1.3) mg/dL Est Cr Clr Drug Dosing 38.95 mL/min Estimated GFR (MDRD) 35.5 ml/min Glucose 198 H (74-106) mg/dL POC Glucose 278 H (60-110) mg/dL Calcium 8.4 L (8.5-10.1) mg/dL Shay Results Last 24 Hours: Microbiology 05/22/20 11:00 Aerobic Blood Culture - Preliminary Blood - Venous - Lab Draw NO GROWTH AFTER 2 DAYS Anaerobic Blood Culture - Preliminary NO GROWTH AFTER 2 DAYS 05/22/20 10:30 Aerobic Blood Culture - Preliminary Blood - Venous NO GROWTH AFTER 2 DAYS Anaerobic Blood Culture - Preliminary NO GROWTH AFTER 2 DAYS 05/21/20 17:28 Aerobic Blood Culture - Final Blood - Venous - Lab Draw Anaerobic Blood Culture - Final 05/21/20 17:03 Aerobic Blood Culture - Final Blood - Venous Proteus Mirabilis Anaerobic Blood Culture - Final 05/21/20 17:20 Urine Culture - Final Urine, Clean Catch Proteus Mirabilis Med Orders - Current: Current Medications Acetaminophen (Tylenol) 650 mg PO Q4H PRN PRN Reason: Pain (Mild 1-3)/fever Heparin Sodium (Porcine) (Heparin Sodium) 5,000 units SUBCUT Q12H [facility] Last Admin: 05/24/20 09:03 Dose: 5,000 units Documented by: Sodium Chloride (Normal Saline) 1,000 mls @ 125 mls/hr IV ASDIRECTED [facility] Last Admin: 05/24/20 07:09 Dose: 125 mls/hr Documented by: Levofloxacin/Dextrose 750 mg/ (Premix) 150 mls @ 100 mls/hr IV Q48H [facility] Last Admin: 05/24/20 11:04 Dose: 100 mls/hr Documented by: Insulin Aspart (Novolog) 0 unit SUBCUT TIDAC [facility]; Protocol Last Admin: 05/24/20 07:07 Dose: 1 units Documented by: Nystatin (Nystop) 1 gm TOP TID [facility] Last Admin: 05/24/20 05:47 Dose: 1 gm Documented by: Sodium Chloride (Saline Flush) 10 ml FLUSH ASDIRECTED PRN PRN Reason: Keep Vein Open Last Admin: 05/21/20 17:00 Dose: 10 ml Documented by: Sodium Chloride (Saline Flush) 2.5 ml FLUSH ASDIRECTED PRN PRN Reason: Keep Vein Open Last Admin: 05/21/20 17:00 Dose: 2.5 ml Documented by: Discontinued Medications Aspirin (Aspirin) 324 mg PO ONETIME ONE Stop: 05/21/20 17:56 Last Admin: 05/21/20 18:33 Dose: 324 mg Documented by: Heparin Sodium (Porcine) (Heparin Sodium) 5,000 units SUBCUT ONETIME [facility] Last Admin: 05/21/20 23:20 Dose: 5,000 units Documented by: Sodium Chloride (Normal Saline) 1,000 mls @ 999 mls/hr IV STAT ONE Stop: 05/21/20 18:55 Last Infusion: 05/21/20 19:18 Dose: 999 mls/hr Documented by: Ceftriaxone Sodium/Dextrose 1 (gm/ Premix) 50 mls @ 100 mls/hr IV ONETIME ONE Stop: 05/21/20 18:32 Last Admin: 05/21/20 18:29 Dose: 100 mls/hr Documented by: Ceftriaxone Sodium/Dextrose 1 (gm/ Premix) 50 mls @ 100 mls/hr IV Q24H [facility] Meropenem 0.5 gm/ Sodium (Chloride) 100 mls @ 200 mls/hr IV Q12H [facility] Last Admin: 05/22/20 07:56 Dose: Not Given Documented by: Meropenem 500 mg/ Sodium (Chloride) 100 mls @ 200 mls/hr IV Q12H [facility] Last Admin: 05/21/20 23:07 Dose: 200 mls/hr Documented by: Meropenem 500 mg/ Sodium (Chloride) 50 mls @ 100 mls/hr IV Q12H [facility] Last Admin: 05/23/20 22:45 Dose: 100 mls/hr Documented by: - Exam General: Alert, Oriented Lungs: Clear to Auscultation, Normal Respiratory Effort Cardiovascular: Regular Rate, Regular Rhythm GI/Abdominal Exam: Soft, Non-Tender, No Distention Extremities: Non-Tender, No Pedal Edema Skin: Warm, Dry, Intact Sepsis Event Note - Evaluation Sepsis Screening Result: No Definite Risk - Focused Exam Vital Signs: Vital Signs Temp Pulse Resp BP Pulse Ox 07/23/20 08:00 36.6 C 74 16 141/81 H 95 05/24/20 04:00 36.8 C 74 18 122/65 94 L 05/24/20 00:00 36.8 C 84 18 132/82 95 Date Exam was Performed: 05/24/20 Time Exam was Performed: 11:10 - Problem List Review Problem List Initiated/Reviewed/Updated: Yes - My Orders Last 24 Hours: My Active Orders 05/24/20 11:00 Levofloxacin/Dextrose 5%-Water [Levaquin in D5W 750 MG/150 ML] 750 mg Premix Bag 1 bag IV Q48H - Plan Plan:: 69 yo male admitted for UTI and renal failure. Proteus UTI with bacteremia: Will switch to levaquin today, Renal failure. creatinine improved to 1.9 today, Will continue IV Fluids, avoid nephrotoxic medications, Dr. Marrufo consulted who recommended keeping knutson in place and using gentamycin flushes
[2020-05-25] MEDS: Sodium Chloride 0.9% 1,000 ML IV SCH ×2 (00:36→08:41)
[2020-05-25] MEDS: Insulin Aspart 100 Units/ML 3 ML Pen SUBCUT SCH ×3 (06:31→17:28)
[2020-05-25] MEDS: Nystatin Topical Powder 15 GM Bottle TOP SCH ×3 (06:31→21:04)
[2020-05-25 06:34] LABS: CARBON DIOXIDE,CO2 21.4 mmol/L (21.0-32.0); POTASSIUM,K 4.3 mmol/L (3.5-5.1)
[2020-05-25] MEDS: Heparin Sodium 5,000 Units/ML Vial SUBCUT SCH ×2 (08:57→20:33)
--- NOTE | 2020-05-25 12:40 | PCM.PN ---
- General Info Date of Service: 05/25/20 Admission Dx/Problem (Free Text): Admission Diagnosis/Problem Admission Diagnosis/Problem UTI, Urinary tract infectious disease Subjective Update: resting comfortably, pleasantly confused - Review of Systems General: Denies: Fever, Weakness, Fatigue Pulmonary: Denies: Shortness of Breath, Pleuritic Chest Pain Cardiovascular: Denies: Chest Pain, Palpitations Gastrointestinal: Denies: Abdominal Pain, Constipation, Decreased Appetite Genitourinary: Denies: Dysuria, Frequency Musculoskeletal: Denies: Neck Pain, Shoulder Pain - Patient Data Vitals - Most Recent: Last Vital Signs Temp 36.7 C 05/25/20 12:00 Pulse 85 05/25/20 12:00 Resp 15 05/25/20 12:00 BP 125/74 05/25/20 12:00 Pulse Ox 94 L 05/25/20 12:00 Weight - Most Recent: 116 kg I&O - Last 24 Hours: Intake & Output 05/24/20 05/25/20 05/25/20 22:59 06:59 14:59 Intake Total 2540 2370 Output Total 1220 1700 Balance 1320 670 Lab Results Last 24 Hours: Laboratory Results - last 24 hr 05/24/20 05/24/20 05/25/20 Range/Units 17:02 20:43 05:43 WBC 16.99 H (4.0-11.0) K/uL RBC 5.15 (4.50-5.90) M/uL Hgb 12.8 L (13.0-17.0) g/dL Hct 40.4 (38.0-50.0) % MCV 78.4 L (80.0-98.0) fL MCH 24.9 L (27.0-32.0) pg MCHC 31.7 (31.0-37.0) g/dL RDW Std Deviation 44.4 (28.0-62.0) fl RDW Coeff of Alberto 15 (11.0-15.0) % Plt Count 256 (150-400) K/uL MPV 10.10 (7.40-12.00) fL Add Manual Diff YES Neutrophils % (Manual) 84 H (48.0-80.0) % Band Neutrophils % 3 % Lymphocytes % (Manual) 3 L (16.0-40.0) % Monocytes % (Manual) 10 (0.0-15.0) % Nucleated RBC % 0.0 /100WBC Absolute Seg Neuts 14.3 H (1.4-5.7) Band Neutrophils # 0.5 Lymphocytes # (Manual) 0.5 L (0.6-2.4) Monocytes # (Manual) 1.7 H (0.0-0.8) Nucleated RBCs # 0 K/uL Sodium (136-148) mmol/L Potassium (3.5-5.1) mmol/L Chloride (98-107) mmol/L Carbon Dioxide (21.0-32.0) mmol/L BUN (7.0-18.0) mg/dL Creatinine (0.8-1.3) mg/dL Est Cr Clr Drug Dosing mL/min Estimated GFR (MDRD) ml/min Glucose (74-106) mg/dL POC Glucose 204 H 185 H (60-110) mg/dL Calcium (8.5-10.1) mg/dL 05/25/20 05/25/20 05/25/20 Range/Units 05:43 06:25 08:56 WBC (4.0-11.0) K/uL RBC (4.50-5.90) M/uL Hgb (13.0-17.0) g/dL Hct (38.0-50.0) % MCV (80.0-98.0) fL MCH (27.0-32.0) pg MCHC (31.0-37.0) g/dL RDW Std Deviation (28.0-62.0) fl RDW Coeff of Alberto (11.0-15.0) % Plt Count (150-400) K/uL MPV (7.40-12.00) fL Add Manual Diff Neutrophils % (Manual) (48.0-80.0) % Band Neutrophils % % Lymphocytes % (Manual) (16.0-40.0) % Monocytes % (Manual) (0.0-15.0) % Nucleated RBC % /100WBC Absolute Seg Neuts (1.4-5.7) Band Neutrophils # Lymphocytes # (Manual) (0.6-2.4) Monocytes # (Manual) (0.0-0.8) Nucleated RBCs # K/uL Sodium 140 (136-148) mmol/L Potassium 4.3 (3.5-5.1) mmol/L Chloride 109 H (98-107) mmol/L Carbon Dioxide 21.4 (21.0-32.0) mmol/L BUN 59 H (7.0-18.0) mg/dL Creatinine 2.5 H (0.8-1.3) mg/dL Est Cr Clr Drug Dosing 29.61 mL/min Estimated GFR (MDRD) 25.9 ml/min Glucose 191 H (74-106) mg/dL POC Glucose 168 H 270 H (60-110) mg/dL Calcium 7.6 L (8.5-10.1) mg/dL 05/25/20 Range/Units 12:23 WBC (4.0-11.0) K/uL RBC (4.50-5.90) M/uL Hgb (13.0-17.0) g/dL Hct (38.0-50.0) % MCV (80.0-98.0) fL MCH (27.0-32.0) pg MCHC (31.0-37.0) g/dL RDW Std Deviation (28.0-62.0) fl RDW Coeff of Alberto (11.0-15.0) % Plt Count (150-400) K/uL MPV (7.40-12.00) fL Add Manual Diff Neutrophils % (Manual) (48.0-80.0) % Band Neutrophils % % Lymphocytes % (Manual) (16.0-40.0) % Monocytes % (Manual) (0.0-15.0) % Nucleated RBC % /100WBC Absolute Seg Neuts (1.4-5.7) Band Neutrophils # Lymphocytes # (Manual) (0.6-2.4) Monocytes # (Manual) (0.0-0.8) Nucleated RBCs # K/uL Sodium (136-148) mmol/L Potassium (3.5-5.1) mmol/L Chloride (98-107) mmol/L Carbon Dioxide (21.0-32.0) mmol/L BUN (7.0-18.0) mg/dL Creatinine (0.8-1.3) mg/dL Est Cr Clr Drug Dosing mL/min Estimated GFR (MDRD) ml/min Glucose (74-106) mg/dL POC Glucose 240 H (60-110) mg/dL Calcium (8.5-10.1) mg/dL Shay Results Last 24 Hours: Microbiology 05/22/20 11:00 Aerobic Blood Culture - Preliminary Blood - Venous - Lab Draw NO GROWTH AFTER 3 DAYS Anaerobic Blood Culture - Preliminary NO GROWTH AFTER 3 DAYS 05/22/20 10:30 Aerobic Blood Culture - Preliminary Blood - Venous NO GROWTH AFTER 3 DAYS Anaerobic Blood Culture - Preliminary NO GROWTH AFTER 3 DAYS 05/21/20 17:28 Aerobic Blood Culture - Final Blood - Venous - Lab Draw Anaerobic Blood Culture - Final 05/21/20 17:03 Aerobic Blood Culture - Final Blood - Venous Proteus Mirabilis Anaerobic Blood Culture - Final Med Orders - Current: Current Medications Acetaminophen (Tylenol) 650 mg PO Q4H PRN PRN Reason: Pain (Mild 1-3)/fever Heparin Sodium (Porcine) (Heparin Sodium) 5,000 units SUBCUT Q12H [facility] Last Admin: 05/25/20 08:57 Dose: 5,000 units Documented by: Sodium Chloride (Normal Saline) 1,000 mls @ 125 mls/hr IV ASDIRECTED [facility] Last Admin: 05/25/20 08:41 Dose: 125 mls/hr Documented by: Levofloxacin/Dextrose 750 mg/ (Premix) 150 mls @ 100 mls/hr IV Q48H [facility] Last Admin: 05/24/20 11:04 Dose: 100 mls/hr Documented by: Insulin Aspart (Novolog) 0 unit SUBCUT TIDAC [facility]; Protocol Last Admin: 05/25/20 12:34 Dose: 2 units Documented by: Nystatin (Nystop) 1 gm TOP TID [facility] Last Admin: 05/25/20 06:31 Dose: 1 gm Documented by: Sodium Chloride (Saline Flush) 10 ml FLUSH ASDIRECTED PRN PRN Reason: Keep Vein Open Last Admin: 05/21/20 17:00 Dose: 10 ml Documented by: Sodium Chloride (Saline Flush) 2.5 ml FLUSH ASDIRECTED PRN PRN Reason: Keep Vein Open Last Admin: 05/21/20 17:00 Dose: 2.5 ml Documented by: Discontinued Medications Aspirin (Aspirin) 324 mg PO ONETIME ONE Stop: 05/21/20 17:56 Last Admin: 05/21/20 18:33 Dose: 324 mg Documented by: Heparin Sodium (Porcine) (Heparin Sodium) 5,000 units SUBCUT ONETIME [facility] Last Admin: 05/21/20 23:20 Dose: 5,000 units Documented by: Sodium Chloride (Normal Saline) 1,000 mls @ 999 mls/hr IV STAT ONE Stop: 05/21/20 18:55 Last Infusion: 05/21/20 19:18 Dose: 999 mls/hr Documented by: Ceftriaxone Sodium/Dextrose 1 (gm/ Premix) 50 mls @ 100 mls/hr IV ONETIME ONE Stop: 05/21/20 18:32 Last Admin: 05/21/20 18:29 Dose: 100 mls/hr Documented by: Ceftriaxone Sodium/Dextrose 1 (gm/ Premix) 50 mls @ 100 mls/hr IV Q24H [facility] Meropenem 0.5 gm/ Sodium (Chloride) 100 mls @ 200 mls/hr IV Q12H [facility] Last Admin: 05/22/20 07:56 Dose: Not Given Documented by: Meropenem 500 mg/ Sodium (Chloride) 100 mls @ 200 mls/hr IV Q12H [facility] Last Admin: 05/21/20 23:07 Dose: 200 mls/hr Documented by: Meropenem 500 mg/ Sodium (Chloride) 50 mls @ 100 mls/hr IV Q12H [facility] Last Admin: 05/23/20 22:45 Dose: 100 mls/hr Documented by: - Exam General: Alert, Cooperative, Mild Distress. No: Oriented Lungs: Clear to Auscultation, Normal Respiratory Effort Cardiovascular: Regular Rate, Regular Rhythm GI/Abdominal Exam: Normal Bowel Sounds, Soft, Distended, Mass (bladder distension). No: No Distention, Rebound, Abnormal Bowel Sounds, Hernia Sepsis Event Note - Evaluation Sepsis Screening Result: No Definite Risk - Focused Exam Vital Signs: Vital Signs Temp Pulse Resp BP Pulse Ox 05/25/20 12:00 36.7 C 85 15 125/74 94 L 05/25/20 08:00 36.6 C 93 158/76 H 94 L 05/25/20 04:00 37.0 C 76 16 146/71 H 95 Date Exam was Performed: 05/25/20 Time Exam was Performed: 12:36 - Problem List Review Problem List Initiated/Reviewed/Updated: Yes - Plan Plan:: 69 yo male admitted for UTI and renal failure. 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 Marrufo has been consulted
[2020-05-26] MEDS: Sodium Chloride 0.9% 1,000 ML IV SCH ×3 (01:01→18:56)
[2020-05-26] MEDS: Nystatin Topical Powder 15 GM Bottle TOP SCH ×3 (05:46→22:24)
[2020-05-26 06:07] LABS: CARBON DIOXIDE,CO2 23.7 mmol/L (21.0-32.0); POTASSIUM,K 4.1 mmol/L (3.5-5.1)
[2020-05-26] MEDS: Insulin Aspart 100 Units/ML 3 ML Pen SUBCUT SCH ×3 (08:10→17:29)
[2020-05-26] MEDS: Heparin Sodium 5,000 Units/ML Vial SUBCUT SCH ×2 (08:10→22:23)
--- NOTE | 2020-05-26 09:12 | PCM.PN ---
- General Info Date of Service: 05/26/20 Admission Dx/Problem (Free Text): Admission Diagnosis/Problem Admission Diagnosis/Problem UTI, Urinary tract infectious disease Subjective Update: resting comfortably, pleasantly confused, denied any pain or discomfort - Review of Systems General: Denies: Fever, Weakness, Fatigue Pulmonary: Denies: Shortness of Breath, Pleuritic Chest Pain Cardiovascular: Denies: Chest Pain, Palpitations, Dyspnea on Exertion Gastrointestinal: Denies: Abdominal Pain, Constipation, Decreased Appetite Genitourinary: Denies: Dysuria, Burning Musculoskeletal: Denies: Neck Pain, Shoulder Pain, Arm Pain Skin: Denies: Cyanosis, Jaundice, Mottled - Patient Data Vitals - Most Recent: Last Vital Signs Temp 36.2 C 05/26/20 07:05 Pulse 80 05/26/20 07:05 Resp 17 05/26/20 07:05 BP 118/61 05/26/20 07:05 Pulse Ox 96 05/26/20 07:05 Weight - Most Recent: 116 kg I&O - Last 24 Hours: Intake & Output 05/25/20 05/26/20 05/26/20 22:59 06:59 14:59 Intake Total 2717 2420 Output Total 3350 1800 Balance -633 620 Lab Results Last 24 Hours: Laboratory Results - last 24 hr 05/25/20 05/25/20 05/26/20 Range/Units 12:23 17:16 04:51 WBC 13.30 H (4.0-11.0) K/uL RBC 4.94 (4.50-5.90) M/uL Hgb 12.4 L (13.0-17.0) g/dL Hct 39.2 (38.0-50.0) % MCV 79.4 L (80.0-98.0) fL MCH 25.1 L (27.0-32.0) pg MCHC 31.6 (31.0-37.0) g/dL RDW Std Deviation 45.6 (28.0-62.0) fl RDW Coeff of Alberto 16 H (11.0-15.0) % Plt Count 278 (150-400) K/uL MPV 9.70 (7.40-12.00) fL Add Manual Diff YES Neutrophils % (Manual) 73 (48.0-80.0) % Band Neutrophils % 3 % Lymphocytes % (Manual) 16 (16.0-40.0) % Monocytes % (Manual) 5 (0.0-15.0) % Eosinophils % (Manual) 3 (0.0-7.0) % Nucleated RBC % 0.0 /100WBC Absolute Seg Neuts 9.7 H (1.4-5.7) Band Neutrophils # 0.4 Lymphocytes # (Manual) 2.1 (0.6-2.4) Monocytes # (Manual) 0.7 (0.0-0.8) Eosinophils # (Manual) 0.4 (0.0-0.7) Nucleated RBCs # 0 K/uL Sodium (136-148) mmol/L Potassium (3.5-5.1) mmol/L Chloride (98-107) mmol/L Carbon Dioxide (21.0-32.0) mmol/L BUN (7.0-18.0) mg/dL Creatinine (0.8-1.3) mg/dL Est Cr Clr Drug Dosing mL/min Estimated GFR (MDRD) ml/min Glucose (74-106) mg/dL POC Glucose 240 H 181 H (60-110) mg/dL Calcium (8.5-10.1) mg/dL Phosphorus (2.6-4.7) mg/dL Magnesium (1.8-2.4) mg/dL 05/26/20 05/26/20 Range/Units 04:51 06:08 WBC (4.0-11.0) K/uL RBC (4.50-5.90) M/uL Hgb (13.0-17.0) g/dL Hct (38.0-50.0) % MCV (80.0-98.0) fL MCH (27.0-32.0) pg MCHC (31.0-37.0) g/dL RDW Std Deviation (28.0-62.0) fl RDW Coeff of Alberto (11.0-15.0) % Plt Count (150-400) K/uL MPV (7.40-12.00) fL Add Manual Diff Neutrophils % (Manual) (48.0-80.0) % Band Neutrophils % % Lymphocytes % (Manual) (16.0-40.0) % Monocytes % (Manual) (0.0-15.0) % Eosinophils % (Manual) (0.0-7.0) % Nucleated RBC % /100WBC Absolute Seg Neuts (1.4-5.7) Band Neutrophils # Lymphocytes # (Manual) (0.6-2.4) Monocytes # (Manual) (0.0-0.8) Eosinophils # (Manual) (0.0-0.7) Nucleated RBCs # K/uL Sodium 140 (136-148) mmol/L Potassium 4.1 (3.5-5.1) mmol/L Chloride 109 H (98-107) mmol/L Carbon Dioxide 23.7 (21.0-32.0) mmol/L BUN 43 H (7.0-18.0) mg/dL Creatinine 2.0 H (0.8-1.3) mg/dL Est Cr Clr Drug Dosing 37.01 mL/min Estimated GFR (MDRD) 33.5 ml/min Glucose 188 H (74-106) mg/dL POC Glucose 186 H (60-110) mg/dL Calcium 7.7 L (8.5-10.1) mg/dL Phosphorus 2.9 (2.6-4.7) mg/dL Magnesium 2.0 (1.8-2.4) mg/dL Shay Results Last 24 Hours: Microbiology 05/22/20 11:00 Aerobic Blood Culture - Preliminary Blood - Venous - Lab Draw NO GROWTH AFTER 3 DAYS Anaerobic Blood Culture - Preliminary NO GROWTH AFTER 3 DAYS 05/22/20 10:30 Aerobic Blood Culture - Preliminary Blood - Venous NO GROWTH AFTER 3 DAYS Anaerobic Blood Culture - Preliminary NO GROWTH AFTER 3 DAYS Med Orders - Current: Current Medications Acetaminophen (Tylenol) 650 mg PO Q4H PRN PRN Reason: Pain (Mild 1-3)/fever Heparin Sodium (Porcine) (Heparin Sodium) 5,000 units SUBCUT Q12H [facility] Last Admin: 05/26/20 08:10 Dose: 5,000 units Documented by: Sodium Chloride (Normal Saline) 1,000 mls @ 125 mls/hr IV ASDIRECTED [facility] Last Admin: 05/26/20 08:51 Dose: 125 mls/hr Documented by: Levofloxacin/Dextrose 750 mg/ (Premix) 150 mls @ 100 mls/hr IV Q48H [facility] Last Admin: 05/24/20 11:04 Dose: 100 mls/hr Documented by: Insulin Aspart (Novolog) 0 unit SUBCUT TIDAC [facility]; Protocol Last Admin: 05/26/20 08:10 Dose: 1 units Documented by: Nystatin (Nystop) 1 gm TOP TID [facility] Last Admin: 05/26/20 05:46 Dose: 1 gm Documented by: Sodium Chloride (Saline Flush) 10 ml FLUSH ASDIRECTED PRN PRN Reason: Keep Vein Open Last Admin: 05/21/20 17:00 Dose: 10 ml Documented by: Sodium Chloride (Saline Flush) 2.5 ml FLUSH ASDIRECTED PRN PRN Reason: Keep Vein Open Last Admin: 05/21/20 17:00 Dose: 2.5 ml Documented by: Discontinued Medications Aspirin (Aspirin) 324 mg PO ONETIME ONE Stop: 05/21/20 17:56 Last Admin: 05/21/20 18:33 Dose: 324 mg Documented by: Heparin Sodium (Porcine) (Heparin Sodium) 5,000 units SUBCUT ONETIME [facility] Last Admin: 05/21/20 23:20 Dose: 5,000 units Documented by: Sodium Chloride (Normal Saline) 1,000 mls @ 999 mls/hr IV STAT ONE Stop: 05/21/20 18:55 Last Infusion: 05/21/20 19:18 Dose: 999 mls/hr Documented by: Ceftriaxone Sodium/Dextrose 1 (gm/ Premix) 50 mls @ 100 mls/hr IV ONETIME ONE Stop: 05/21/20 18:32 Last Admin: 05/21/20 18:29 Dose: 100 mls/hr Documented by: Ceftriaxone Sodium/Dextrose 1 (gm/ Premix) 50 mls @ 100 mls/hr IV Q24H [facility] Meropenem 0.5 gm/ Sodium (Chloride) 100 mls @ 200 mls/hr IV Q12H [facility] Last Admin: 05/22/20 07:56 Dose: Not Given Documented by: Meropenem 500 mg/ Sodium (Chloride) 100 mls @ 200 mls/hr IV Q12H [facility] Last Admin: 05/21/20 23:07 Dose: 200 mls/hr Documented by: Meropenem 500 mg/ Sodium (Chloride) 50 mls @ 100 mls/hr IV Q12H [facility] Last Admin: 05/23/20 22:45 Dose: 100 mls/hr Documented by: - Exam General: Alert, Oriented Lungs: Clear to Auscultation, Normal Respiratory Effort Cardiovascular: Regular Rate, Regular Rhythm GI/Abdominal Exam: Normal Bowel Sounds, Soft, Non-Tender (Male) Exam: Normal Inspection, Other (knutson, urine blood tinged but getting clearer compared to yesterday). No: Testicular Tenderness (L), Testicular Tenderness (R) Sepsis Event Note - Evaluation Sepsis Screening Result: No Definite Risk - Focused Exam Vital Signs: Vital Signs Temp Pulse Resp BP Pulse Ox 05/26/20 07:05 36.2 C 80 17 118/61 96 05/26/20 04:20 36.4 C 76 16 128/76 97 05/25/20 23:56 35.9 C L 63 17 107/69 95 Date Exam was Performed: 05/26/20 Time Exam was Performed: 09:09 - Problem List & Annotations (1) Obstructive uropathy SNOMED Code(s): 0864571 Code(s): N13.9 - OBSTRUCTIVE AND REFLUX UROPATHY, UNSPECIFIED Status: Acute Current Visit: Yes (2) Renal insufficiency SNOMED Code(s): 164475216, 197269515 Code(s): N28.9 - DISORDER OF KIDNEY AND URETER, UNSPECIFIED Status: Acute Current Visit: Yes (3) UTI, Urinary tract infectious disease SNOMED Code(s): 22077221 Code(s): N39.0 - URINARY TRACT INFECTION, SITE NOT SPECIFIED Status: Acute Current Visit: Yes (4) Elevated troponin SNOMED Code(s): 185344318, 036213827, 246552407 Code(s): R79.89 - OTHER SPECIFIED ABNORMAL FINDINGS OF BLOOD CHEMISTRY Status: Acute Current Visit: Yes - Problem List Review Problem List Initiated/Reviewed/Updated: Yes - Plan Plan:: 69 yo male admitted for UTI and renal failure. Structural Designer improved after Knutson was changed, no more retnention on subsequent bladder scans cont to flush the Knutson, possible blockage by blood clots vs debris, cont bladder irrigation for now, Hb is stable cont IV fluids Proteus UTI with bacteremia: cont Levaquin Dr. Marrufo has been consulted Possible dc tomorrow with Knutson in place and outpatient follow up with urology
[2020-05-26] MEDS: Levofloxacin/Dextrose 5%-Water 750 MG in Premix Bag 1 BAG IV SCH (11:38)
[2020-05-27] MEDS: Sodium Chloride 0.9% 1,000 ML IV SCH ×2 (02:52→10:39)
[2020-05-27 05:54] LABS: CARBON DIOXIDE,CO2 24.2 mmol/L (21.0-32.0); POTASSIUM,K 3.8 mmol/L (3.5-5.1)
[2020-05-27] MEDS ORDERED: Magnesium Oxide 400 MG Tab PO ONE (06:01)
[2020-05-27] MEDS: Nystatin Topical Powder 15 GM Bottle TOP SCH (06:33)
[2020-05-27] MEDS: Insulin Aspart 100 Units/ML 3 ML Pen SUBCUT SCH ×2 (06:43→12:30)
[2020-05-27] MEDS: Heparin Sodium 5,000 Units/ML Vial SUBCUT SCH (08:01)
--- NOTE | 2020-05-27 11:12 | PCM.DCSUM1 ---
Discharge Summary - Hospital Course Free Text/Narrative:: 69 yo male with pmh of CAD, HTN, BPH, CKD, and DM who presents to the ED due to concerns of generalized weakness. He is a resident at [facility] and usually walks independently, Nurses noted that he was lethargic and had decreased urine output. They also noted low O2 sat in the 70s on RA. Patient has no complaints. Patient was brought to the ED and noted to be sating 96% on 2 liters. BP of 110s/70s. He was noted to have a UTI based off his UA. WBC of 15,990, and Creatinine of 4.3 CT of the abdomen and pelvis showed moderate right sided hydroureter with no obstructing stone, distended bladder with subtle jeanmarie bladder fat stranding. 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 Repeat cultures were negative, Next day his creatine increased again, he was retaining urine, Aquino got clogged with a possible blood clot vs debris, so his Aquino had to be replaced and frequent bladder irrigation was performed, patients urine was initially bloody likely due to Aquino insertio trauma, slowly started to clear, patients Leucocytosis normalized, his Hb was stable, his Renal function improved as well, He was medically stable for dc with oral antibiotics and recommended to fu with Dr Marrufo on outpatient basis. Diagnosis: Stroke: No - Discharge Data Discharge Date: 05/27/20 Discharge Disposition: Home, Self-Care 01 Condition: Fair - Referral to Home Health Primary Care Physician: Navneet Arriola MD - Discharge Diagnosis/Problem(s) (1) Obstructive uropathy SNOMED Code(s): 2903033 ICD Code: N13.9 - OBSTRUCTIVE AND REFLUX UROPATHY, UNSPECIFIED Status: Acute Current Visit: Yes (2) Renal insufficiency SNOMED Code(s): 744524666, 577845925 ICD Code: N28.9 - DISORDER OF KIDNEY AND URETER, UNSPECIFIED Status: Acute Current Visit: Yes (3) UTI, Urinary tract infectious disease SNOMED Code(s): 08962512 ICD Code: N39.0 - URINARY TRACT INFECTION, SITE NOT SPECIFIED Status: Acute Current Visit: Yes (4) Elevated troponin SNOMED Code(s): 936413149, 208993653, 334834967 ICD Code: R79.89 - OTHER SPECIFIED ABNORMAL FINDINGS OF BLOOD CHEMISTRY Status: Acute Current Visit: Yes - Patient Summary/Data Consults: Consultations 05/21/20 22:12 Consult to Physician [CONS] Routine 05/24/20 16:06 Consult to Wound Care Services [CONS] Routine - Patient Instructions Diet: Heart Healthy Diet Activity: As Tolerated Driving: Do Not Drive Showering/Bathing: May Shower Notify Provider of: Fever, Increased Pain, Swelling and Redness, Drainage, Nausea and/or Vomiting Other/Special Instructions: continue bladder irrigation till urology follow up - Discharge Plan *PRESCRIPTION DRUG MONITORING PROGRAM REVIEWED*: No *COPY OF PRESCRIPTION DRUG MONITORING REPORT IN PATIENT JOHANNA: No Prescriptions/Med Rec: Levofloxacin 750 mg PO Q48H 8 Days tablet Nystatin [Nystop] 1 gm TOP TID #1 bottle Home Medications: Home Meds Finasteride 5 mg PO DAILY 08/04/16 [History] Acetaminophen [Acetaminophen Extra Strength] 1 tab PO TID PRN 05/27/19 [History] Aspirin [Halfprin] 81 mg PO DAILY 05/27/19 [History] Furosemide [Lasix] 20 mg PO DAILY 05/27/19 [History] Linagliptin [Tradjenta] 5 mg PO DAILY 05/27/19 [History] Menthol [Biofreeze] 1 applic TOP ASDIRECTED PRN 05/27/19 [History] Multivitamin [Multivitamins] 1 tab PO DAILY 05/27/19 [History] Tamsulosin HCl [Flomax] 0.4 mg PO DAILY 05/27/19 [History] Levofloxacin 750 mg PO Q48H 8 Days tablet 05/27/20 [Rx] Nystatin [Nystop] 1 gm TOP TID #1 bottle 05/27/20 [Rx] Patient Handouts: Urinary Tract Infection, Adult, [id number] Referrals: Arnoldo Padilla MD [Physician] - 05/31/20 (Will be seen on next [facility] rounds. ) Kb Marrufo MD [Physician] - - Discharge Summary/Plan Comment DC Time >30 min.: No - Patient Data Vitals - Most Recent: Last Vital Signs Temp 36.1 C 05/27/20 07:05 Pulse 65 05/27/20 07:05 Resp 18 05/27/20 07:05 BP 135/68 05/27/20 07:05 Pulse Ox 97 05/27/20 07:05 Weight - Most Recent: 116 kg I&O - Last 24 hours: Intake & Output 05/26/20 05/27/20 05/27/20 22:59 06:59 14:59 Intake Total 850 3610 Output Total 1999 2450 Balance -1150 1160 Lab Results - Last 24 hrs: Laboratory Results - last 24 hr 05/26/20 05/27/20 05/27/20 Range/Units 17:29 05:02 05:02 WBC 10.25 (4.0-11.0) K/uL RBC 4.87 (4.50-5.90) M/uL Hgb 12.2 L (13.0-17.0) g/dL Hct 38.8 (38.0-50.0) % MCV 79.7 L (80.0-98.0) fL MCH 25.1 L (27.0-32.0) pg MCHC 31.4 (31.0-37.0) g/dL RDW Std Deviation 44.8 (28.0-62.0) fl RDW Coeff of Alberto 15 (11.0-15.0) % Plt Count 313 (150-400) K/uL MPV 9.60 (7.40-12.00) fL Add Manual Diff YES Neutrophils % (Manual) 86 H (48.0-80.0) % Band Neutrophils % 2 % Lymphocytes % (Manual) 7 L (16.0-40.0) % Monocytes % (Manual) 3 (0.0-15.0) % Eosinophils % (Manual) 2 (0.0-7.0) % Nucleated RBC % 0.0 /100WBC Absolute Seg Neuts 8.8 H (1.4-5.7) Band Neutrophils # 0.2 Lymphocytes # (Manual) 0.7 (0.6-2.4) Monocytes # (Manual) 0.3 (0.0-0.8) Eosinophils # (Manual) 0.2 (0.0-0.7) Nucleated RBCs # 0 K/uL Sodium 140 (136-148) mmol/L Potassium 3.8 (3.5-5.1) mmol/L Chloride 108 H (98-107) mmol/L Carbon Dioxide 24.2 (21.0-32.0) mmol/L BUN 32 H (7.0-18.0) mg/dL Creatinine 1.6 H (0.8-1.3) mg/dL Est Cr Clr Drug Dosing 46.26 mL/min Estimated GFR (MDRD) 43.3 ml/min Glucose 188 H (74-106) mg/dL POC Glucose 133 H (60-110) mg/dL Calcium 7.6 L (8.5-10.1) mg/dL Phosphorus 3.0 (2.6-4.7) mg/dL Magnesium 1.8 (1.8-2.4) mg/dL 05/27/20 Range/Units 06:39 WBC (4.0-11.0) K/uL RBC (4.50-5.90) M/uL Hgb (13.0-17.0) g/dL Hct (38.0-50.0) % MCV (80.0-98.0) fL MCH (27.0-32.0) pg MCHC (31.0-37.0) g/dL RDW Std Deviation (28.0-62.0) fl RDW Coeff of Alberto (11.0-15.0) % Plt Count (150-400) K/uL MPV (7.40-12.00) fL Add Manual Diff Neutrophils % (Manual) (48.0-80.0) % Band Neutrophils % % Lymphocytes % (Manual) (16.0-40.0) % Monocytes % (Manual) (0.0-15.0) % Eosinophils % (Manual) (0.0-7.0) % Nucleated RBC % /100WBC Absolute Seg Neuts (1.4-5.7) Band Neutrophils # Lymphocytes # (Manual) (0.6-2.4) Monocytes # (Manual) (0.0-0.8) Eosinophils # (Manual) (0.0-0.7) Nucleated RBCs # K/uL Sodium (136-148) mmol/L Potassium (3.5-5.1) mmol/L Chloride (98-107) mmol/L Carbon Dioxide (21.0-32.0) mmol/L BUN (7.0-18.0) mg/dL Creatinine (0.8-1.3) mg/dL Est Cr Clr Drug Dosing mL/min Estimated GFR (MDRD) ml/min Glucose (74-106) mg/dL POC Glucose 148 H (60-110) mg/dL Calcium (8.5-10.1) mg/dL Phosphorus (2.6-4.7) mg/dL Magnesium (1.8-2.4) mg/dL LITA Results - Last 24 hrs: Microbiology 05/22/20 11:00 Aerobic Blood Culture - Final Blood - Venous - Lab Draw NO GROWTH AFTER 5 DAYS Anaerobic Blood Culture - Final NO GROWTH AFTER 5 DAYS 05/22/20 10:30 Aerobic Blood Culture - Final Blood - Venous NO GROWTH AFTER 5 DAYS Anaerobic Blood Culture - Final NO GROWTH AFTER 5 DAYS Med Orders - Current: Current Medications Acetaminophen (Tylenol) 650 mg PO Q4H PRN PRN Reason: Pain (Mild 1-3)/fever Heparin Sodium (Porcine) (Heparin Sodium) 5,000 units SUBCUT Q12H [facility] Last Admin: 05/27/20 08:01 Dose: 5,000 units Documented by: Sodium Chloride (Normal Saline) 1,000 mls @ 125 mls/hr IV ASDIRECTED [facility] Last Admin: 05/27/20 10:39 Dose: 125 mls/hr Documented by: Levofloxacin/Dextrose 750 mg/ (Premix) 150 mls @ 100 mls/hr IV Q48H [facility] Last Admin: 05/26/20 11:38 Dose: 100 mls/hr Documented by: Insulin Aspart (Novolog) 0 unit SUBCUT TIDAC [facility]; Protocol Last Admin: 05/27/20 06:43 Dose: Not Given Documented by: Nystatin (Nystop) 1 gm TOP TID [facility] Last Admin: 05/27/20 06:33 Dose: 1 gm Documented by: Sodium Chloride (Saline Flush) 10 ml FLUSH ASDIRECTED PRN PRN Reason: Keep Vein Open Last Admin: 05/21/20 17:00 Dose: 10 ml Documented by: Sodium Chloride (Saline Flush) 2.5 ml FLUSH ASDIRECTED PRN PRN Reason: Keep Vein Open Last Admin: 05/21/20 17:00 Dose: 2.5 ml Documented by: Discontinued Medications Aspirin (Aspirin) 324 mg PO ONETIME ONE Stop: 05/21/20 17:56 Last Admin: 05/21/20 18:33 Dose: 324 mg Documented by: Heparin Sodium (Porcine) (Heparin Sodium) 5,000 units SUBCUT ONETIME [facility] Last Admin: 05/21/20 23:20 Dose: 5,000 units Documented by: Sodium Chloride (Normal Saline) 1,000 mls @ 999 mls/hr IV STAT ONE Stop: 05/21/20 18:55 Last Infusion: 05/21/20 19:18 Dose: 999 mls/hr Documented by: Ceftriaxone Sodium/Dextrose 1 (gm/ Premix) 50 mls @ 100 mls/hr IV ONETIME ONE Stop: 05/21/20 18:32 Last Admin: 05/21/20 18:29 Dose: 100 mls/hr Documented by: Ceftriaxone Sodium/Dextrose 1 (gm/ Premix) 50 mls @ 100 mls/hr IV Q24H [facility] Meropenem 0.5 gm/ Sodium (Chloride) 100 mls @ 200 mls/hr IV Q12H [facility] Last Admin: 05/22/20 07:56 Dose: Not Given Documented by: Meropenem 500 mg/ Sodium (Chloride) 100 mls @ 200 mls/hr IV Q12H [facility] Last Admin: 05/21/20 23:07 Dose: 200 mls/hr Documented by: Meropenem 500 mg/ Sodium (Chloride) 50 mls @ 100 mls/hr IV Q12H [facility] Last Admin: 05/23/20 22:45 Dose: 100 mls/hr Documented by: Magnesium Oxide (Magnesium Oxide) 800 mg PO ONETIME ONE Stop: 05/27/20 06:02 Last Admin: 05/27/20 06:33 Dose: 800 mg Documented by:
== END 2020-05-27 13:15 | disposition home or self-care (01) | DRG 683 ==
LOC: MW.ED 16:35 → MW.MS 19:10
PROVIDERS: ADMIT Internal Medicine; ATTEND Internal Medicine
DX: N17.9 Acute kidney failure, unspecified (principal); R79.89 Other specified abnormal findings of blood chemistry; N28.9 Disorder of kidney and ureter, unspecified; B37.89 Other sites of candidiasis; N39.0 Urinary tract infection, site not specified; N13.8 Other obstructive and reflux uropathy; I10 Essential (primary) hypertension; N40.0 Benign prostatic hyperplasia without lower urinary tract symptoms; M17.11 Unilateral primary osteoarthritis, right knee; E11.9 Type 2 diabetes mellitus without complications; N40.1 Benign prostatic hyperplasia with lower urinary tract symptoms; K57.90 Diverticulosis of intestine, part unspecified, without perforation or abscess without bleeding; Z86.010 Personal history of colon polyps; R33.8 Other retention of urine; I12.9 Hypertensive chronic kidney disease with stage 1 through stage 4 chronic kidney disease, or unspecified chronic kidney disease; E11.22 Type 2 diabetes mellitus with diabetic chronic kidney disease; E66.9 Obesity, unspecified; M19.90 Unspecified osteoarthritis, unspecified site; E78.00 Pure hypercholesterolemia, unspecified; I25.10 Atherosclerotic heart disease of native coronary artery without angina pectoris; B37.9 Candidiasis, unspecified; B96.4 Proteus (mirabilis) (morganii) as the cause of diseases classified elsewhere; Z20.828 Contact with and (suspected) exposure to other viral communicable diseases; N13.30 Unspecified hydronephrosis; N18.9 Chronic kidney disease, unspecified; Z79.82 Long term (current) use of aspirin; Z79.899 Other long term (current) drug therapy; Z87.891 Personal history of nicotine dependence; Z68.36 Body mass index [BMI] 36.0-36.9, adult
CPT/HCPCS: 51702; 70450; 71045; 74176; 80053; 81001; 83605; 84484; 85025; 87040 ×2; 87077; 87086; 87186 ×2; 93005; 96365; 99285; A9270; J0696; J7030; U0002; 36415; 80048; 82962; 83735; 84100; 87088; 93010; 99284; J1644; J1815-GY; J1956; J2185; J7050

== ENCOUNTER 2020-06-19 16:53 | Observation (INO) | payer MEDICARE, OTHER ==
--- NOTE | 2020-06-19 17:45 | EDM.PDOC ---
ED HPI GENERAL MEDICAL PROBLEM - General Chief Complaint: Skin Complaint Stated Complaint: POSSIBLE SEPSIS/AKRON Time Seen by Provider: 06/19/20 16:55 Source of Information: Reports: Patient, [facility] Records, Old Records History Limitations: Reports: No Limitations - History of Present Illness INITIAL COMMENTS - FREE TEXT/NARRATIVE: 62-year-old male with a past medical history of diabetes mellitus, myocardial infarction, depression, BPH status post Aquino catheter placement, morbid obesity, chronic kidney disease, pressure ulcers, ongoing clindamycin treatment for buttock cellulitis as of 06/18/2020, IV gentamicin therapy for UTI. He has been a resident at [facility] for at least 1 year. They sent him to the emergency department due to abnormal labs, particular leukocytosis and elevated creatinine. Here in the emergency department, patient has no complaints. He is not oriented to place, time, or event. He is unable to participate in the ROS due to altered mental status/encephalopathy. ROS: Unable to obtain due to altered mental status. Past medical history: Reviewed, no additional pertinent history. Surgical history: Reviewed in system, no additional pertinent history. Social history: Reviewed in system, no additional pertinent history. Family history: Reviewed in system, no additional pertinent history. PHYSICAL EXAM Vital signs reviewed. Nursing notes reviewed. Constitutional: Awake, alert, non-distressed. Head: Normocephalic, atraumatic. Eyes: EOMI, conjunctiva normal, no discharge, no scleral icterus. Ears, Nose, Throat: External ears and nose normal, tacky oral mucosa. Cardiovascular: 2+ radial pulse, capillary refill less than 2 seconds. Pulmonary: normal work of breathing, no accessory muscle use. CTA BL Abdomen/GI: Soft, nontender, nondistended, no guarding or rigidity, no masses. : Aquino catheter in place, no external lesions or swelling noted to the penis or scrotum. Musculoskeletal: No deformities. Integumentary: Appropriate color for ethnicity, warm, dry, no pallor or jaundice, no rash. Multiple sacral decubitus ulcers noted, with overlying eschars. Mild surrounding erythema concerning for cellulitis. Neurologic: Alert, not oriented to place/time/event, normal speech, no facial droop, moving all extremities well. Psychiatric: Poor insight and judgment. - Related Data Allergies Allergy/AdvReac Type Severity Reaction Status Date / Time No Known Allergies Allergy Verified 06/19/20 17:13 Home Meds: Home Meds Finasteride 5 mg PO DAILY 08/04/16 [History] Acetaminophen [Acetaminophen Extra Strength] 1 tab PO TID PRN 05/27/19 [History] Aspirin [Halfprin] 81 mg PO DAILY 05/27/19 [History] Furosemide [Lasix] 20 mg PO DAILY 05/27/19 [History] Linagliptin [Tradjenta] 5 mg PO DAILY 05/27/19 [History] Menthol [Biofreeze] 1 applic TOP BID PRN 05/27/19 [History] Multivitamin [Multivitamins] 1 tab PO DAILY 05/27/19 [History] Tamsulosin HCl [Flomax] 0.4 mg PO DAILY 05/27/19 [History] Clindamycin HCl 300 mg PO TID 06/19/20 [History] Gentamicin/Normal Saline [Gentamicin 80 MG/NS 100 ML Piggyback] 80 mg IV MOWEFR 06/19/20 [History] Menthol/Camphor [Sarna Anti-Itch] 1 applic TOP Q12H PRN 06/19/20 [History] Nystatin [Nystop] 1 gm TOP TID 06/19/20 [History] polyethylene glycoL 3350 [MiraLAX] 17 gm PO DAILY PRN 06/19/20 [History] Past Medical History HEENT History: Reports: Hard of Hearing, Other (See Below) Other HEENT History: top & bottom denture, dental caries Cardiovascular History: Reports: High Cholesterol, Hypertension, [place], Other (See Below) Other Cardiovascular History: atherosclerotic heart disease Respiratory History: Reports: None Gastrointestinal History: Reports: Colon Polyp, Diverticulosis Genitourinary History: Reports: BPH, Renal Disease, Urinary Incontinence, UTI, Recurrent, Other (See Below) Other Genitourinary History: obstructive and reflux uropathy, fitting and adjustment of urinary device, CKD Musculoskeletal History: Reports: Osteoarthritis, Other (See Below) Other Musculoskeletal History: Muscle weakness, difficulty walking, other abnormalities of gait and mobility, pain in right knee, lack of coordination Neurological History: Reports: None Psychiatric History: Reports: Other (See Below) Other Psychiatric History: Personality disorder Endocrine/Metabolic History: Reports: Diabetes, Type II, Obesity/BMI 30+ Hematologic History: Reports: None Immunologic History: Reports: None Oncologic (Cancer) History: Reports: None Dermatologic History: Reports: Other (See Below) Other Dermatologic History: pressure ulcer of right buttock, hx of neoplasm of skin, pressure ulcer of lefr buttock, sacral region - Infectious Disease History Infectious Disease History: Reports: None - Past Surgical History Head Surgeries/Procedures: Reports: None HEENT Surgical History: Reports: Oral Surgery Cardiovascular Surgical History: Reports: None Respiratory Surgical History: Reports: None GI Surgical History: Reports: Colonoscopy Male Surgical History: Reports: None Endocrine Surgical History: Reports: None Neurological Surgical History: Reports: None Musculoskeletal Surgical History: Reports: None Oncologic Surgical History: Reports: None Dermatological Surgical History: Reports: None - History Comment History Comment: etoh "3x a month" Social & Family History - Tobacco Use Smoking Status *Q: Unknown Ever Smoked - Caffeine Use Caffeine Use: Reports: None ED ROS GENERAL - Review of Systems Review Of Systems: See Below ED EXAM, SKIN/RASH Exam: See Below Course - Vital Signs Text/Narrative:: 18-year-old male presenting with abnormal labs. CBC shows a leukocytosis with a white count of 23,000 with a left shift. Normal INR and lactate. Metabolic panel shows acute kidney injury with a creatinine of 2.3. Negative troponin. Catheterized urine shows moderate occult blood, small leukocyte esterase. Head CT negative, chest x-ray is negative. Ordered 1 L of lactated Ringer's along with vancomycin and cefepime. Will obtain noncontrast imaging of the chest/abdomen/pelvis via CT to look for an occult infectious source. Patient will need to be admitted the hospital for work-up and treatment of acute kidney injury and for work-up of potential infectious etiology. I spoke with the hospitalist Dr. Lim who will admit the patient to observation. Signed out to Dr. Lopez at shift change awaiting CT CAP study. Last Recorded V/S: Last Vital Signs Temp 36.2 C 06/19/20 17:08 Pulse 101 H 06/19/20 19:06 Resp 18 06/19/20 19:06 BP 92/53 L 06/19/20 19:06 Pulse Ox 94 L 06/19/20 19:06 - Orders/Labs/Meds Orders: Active Orders 24 hr Category Date Time Status Admission Status [Patient Status] [ADT] Stat ADT 06/19/20 19:19 Active EKG 12 Lead [EKG Documentation Completion] [RC] STAT Care 06/19/20 17:44 Active Abdomen Pelvis wo Cont [CT] Stat Exams 06/19/20 19:05 Ordered Chest wo Cont [CT] Stat Exams 06/19/20 19:05 Ordered CORONAVIRUS COVID-19 PCR PHL Stat Lab 06/19/20 19:06 Ordered CULTURE BLOOD [BC] Stat Lab 06/19/20 17:19 Received CULTURE BLOOD [BC] Stat Lab 06/19/20 17:29 Received VANCOMYCIN TROUGH [CHEM] Timed Lab 06/21/20 07:30 Ordered Lactated Ringers [Ringers, Lactated] 1,000 ml Med 06/19/20 18:43 Active IV .BOLUS Pharmacy to Dose - Vancomycin Med 06/19/20 19:05 Pending 1 dose .XX ONETIME ONE Vancomycin 1.25 gm Med 06/20/20 08:00 Active Sodium Chloride 0.9% [Normal Saline (AdvBag)] 250 ml IV Q12H Vancomycin 2 gm Med 06/19/20 20:00 Active Sodium Chloride 0.9% [Normal Saline] 500 ml IV ONETIME Blood Culture x2 Reflex Set [OM.PC] Stat Oth 06/19/20 17:44 Ordered Medication Orders Lactated Ringer's (Ringers, Lactated) 1,000 mls @ 999 mls/hr IV .BOLUS ONE Stop: 06/19/20 19:43 Last Admin: 06/19/20 18:56 Dose: 999 mls/hr Documented by: LEDA Vancomycin HCl 2 gm/ Sodium (Chloride) 500 mls @ 333.333 mls/hr IV ONETIME ONE Stop: 06/19/20 21:29 Vancomycin HCl 1.25 gm/ Sodium (Chloride) 250 mls @ 166.667 mls/hr IV Q12H [facility] Vancomycin HCl (Pharmacy To Dose - Vancomycin) 1 dose .XX ONETIME ONE Stop: 06/19/20 19:06 Labs: Laboratory Tests 06/19/20 06/19/20 06/19/20 Range/Units 17:19 17:19 17:19 WBC 23.23 H (4.0-11.0) K/uL RBC 4.54 (4.50-5.90) M/uL Hgb 11.3 L (13.0-17.0) g/dL Hct 35.6 L (38.0-50.0) % MCV 78.4 L (80.0-98.0) fL MCH 24.9 L (27.0-32.0) pg MCHC 31.7 (31.0-37.0) g/dL RDW Std Deviation 46.6 (28.0-62.0) fl RDW Coeff of Alberto 16 H (11.0-15.0) % Plt Count 281 (150-400) K/uL MPV 9.40 (7.40-12.00) fL Neut % (Auto) 89.4 H (48.0-80.0) % Lymph % (Auto) 3.9 L (16.0-40.0) % [place] % (Auto) 6.6 (0.0-15.0) % Eos % (Auto) 0.0 (0.0-7.0) % Baso % (Auto) 0.1 (0.0-1.5) % Neut # (Auto) 20.8 H (1.4-5.7) K/uL Lymph # (Auto) 0.9 (0.6-2.4) K/uL [place] # (Auto) 1.5 H (0.0-0.8) K/uL Eos # (Auto) 0.0 (0.0-0.7) K/uL Baso # (Auto) 0.0 (0.0-0.1) K/uL Nucleated RBC % 0.0 /100WBC Nucleated RBCs # 0 K/uL INR 1.19 Lactate 0.9 (0.20-2.00) mmol/L Sodium (136-148) mmol/L Potassium (3.5-5.1) mmol/L Chloride (98-107) mmol/L Carbon Dioxide (21.0-32.0) mmol/L BUN (7.0-18.0) mg/dL Creatinine (0.8-1.3) mg/dL Est Cr Clr Drug Dosing Estimated GFR (MDRD) ml/min Glucose (74-106) mg/dL Calcium (8.5-10.1) mg/dL Total Bilirubin (0.2-1.0) mg/dL AST (15-37) IU/L ALT (14-63) IU/L Alkaline Phosphatase (46-116) U/L Troponin I (0.000-0.056) ng/mL Total Protein (6.4-8.2) g/dL Albumin (3.4-5.0) g/dL Globulin (2.6-4.0) g/dL Albumin/Globulin Ratio (0.9-1.6) Urine Color Urine Appearance Urine pH (5.0-8.0) Ur Specific [place] (1.001-1.035) Urine Protein (NEGATIVE) mg/dL Urine Glucose (UA) (NEGATIVE) mg/dL Urine Ketones (NEGATIVE) mg/dL Urine Occult Blood (NEGATIVE) Urine Nitrite (NEGATIVE) Urine Bilirubin (NEGATIVE) Urine Urobilinogen (<2.0) EU/dL Ur Leukocyte Esterase (NEGATIVE) Urine RBC (0-2/HPF) Urine WBC (0-5/HPF) Ur Epithelial Cells (NONE-FEW) Urine Bacteria (NEGATIVE) 06/19/20 06/19/20 Range/Units 17:19 17:23 WBC (4.0-11.0) K/uL RBC (4.50-5.90) M/uL Hgb (13.0-17.0) g/dL Hct (38.0-50.0) % MCV (80.0-98.0) fL MCH (27.0-32.0) pg MCHC (31.0-37.0) g/dL RDW Std Deviation (28.0-62.0) fl RDW Coeff of Alberto (11.0-15.0) % Plt Count (150-400) K/uL MPV (7.40-12.00) fL Neut % (Auto) (48.0-80.0) % Lymph % (Auto) (16.0-40.0) % [place] % (Auto) (0.0-15.0) % Eos % (Auto) (0.0-7.0) % Baso % (Auto) (0.0-1.5) % Neut # (Auto) (1.4-5.7) K/uL Lymph # (Auto) (0.6-2.4) K/uL [place] # (Auto) (0.0-0.8) K/uL Eos # (Auto) (0.0-0.7) K/uL Baso # (Auto) (0.0-0.1) K/uL Nucleated RBC % /100WBC Nucleated RBCs # K/uL INR Lactate (0.20-2.00) mmol/L Sodium 132 L (136-148) mmol/L Potassium 4.1 (3.5-5.1) mmol/L Chloride 96 L (98-107) mmol/L Carbon Dioxide 25.6 (21.0-32.0) mmol/L BUN 51 H (7.0-18.0) mg/dL Creatinine 2.3 H (0.8-1.3) mg/dL Est Cr Clr Drug Dosing TNP Estimated GFR (MDRD) 28.5 ml/min Glucose 158 H (74-106) mg/dL Calcium 8.8 (8.5-10.1) mg/dL Total Bilirubin 0.6 (0.2-1.0) mg/dL AST 64 H (15-37) IU/L ALT 45 (14-63) IU/L Alkaline Phosphatase 109 (46-116) U/L Troponin I < 0.050 (0.000-0.056) ng/mL Total Protein 6.8 (6.4-8.2) g/dL Albumin 2.6 L (3.4-5.0) g/dL Globulin 4.2 H (2.6-4.0) g/dL Albumin/Globulin Ratio 0.6 L (0.9-1.6) Urine Color YELLOW Urine Appearance CLEAR Urine pH 5.5 (5.0-8.0) Ur Specific [place] 1.020 (1.001-1.035) Urine Protein TRACE H (NEGATIVE) mg/dL Urine Glucose (UA) NEGATIVE (NEGATIVE) mg/dL Urine Ketones NEGATIVE (NEGATIVE) mg/dL Urine Occult Blood MODERATE H (NEGATIVE) Urine Nitrite NEGATIVE (NEGATIVE) Urine Bilirubin NEGATIVE (NEGATIVE) Urine Urobilinogen 0.2 (<2.0) EU/dL Ur Leukocyte Esterase SMALL H (NEGATIVE) Urine RBC 1-2 (0-2/HPF) Urine WBC 3-4 (0-5/HPF) Ur Epithelial Cells RARE (NONE-FEW) Urine Bacteria RARE (NEGATIVE) Meds: Medications Generic Name Dose Route Start Last Admin Trade Name Freq PRN Reason Stop Dose Admin Lactated Ringer's 1,000 mls @ 999 mls/hr 06/19/20 18:43 06/19/20 18:56 Ringers, Lactated IV 06/19/20 19:43 999 mls/hr .BOLUS ONE Administration Vancomycin HCl 2 gm/ Sodium 500 mls @ 333.333 mls/hr 06/19/20 20:00 Chloride IV 06/19/20 21:29 ONETIME ONE Vancomycin HCl 1.25 gm/ Sodium 250 mls @ 166.667 mls/hr 06/20/20 08:00 Chloride IV Q12H FIDELIA Vancomycin HCl 1 dose 06/19/20 19:05 Pharmacy To Dose - Vancomycin .XX 06/19/20 19:06 ONETIME ONE Discontinued Medications Generic Name Dose Route Start Last Admin Trade Name Freq PRN Reason Stop Dose Admin Cefepime HCl 2 gm/ Premix 50 mls @ 100 mls/hr 06/19/20 19:06 IV 06/19/20 19:35 ONETIME ONE Departure - Departure Time of Disposition: 19:44 Disposition: Refer to Observation Condition: Good Clinical Impression: Acute kidney injury - Discharge Information Referrals: Gibson Crisostomo MD [Primary Care Provider] - Forms: ED Department Discharge Sepsis Event Note (ED) - Evaluation Sepsis Screening Result: No Definite Risk - Focused Exam Vital Signs: Vital Signs Temp Pulse Resp BP Pulse Ox 06/19/20 19:06 101 H 18 92/53 L 94 L 06/19/20 17:08 36.2 C 78 15 121/67 92 L - My Orders Last 24 Hours: My Active Orders 06/19/20 17:19 CULTURE BLOOD [BC] Stat 06/19/20 17:29 CULTURE BLOOD [BC] Stat 06/19/20 17:44 EKG 12 Lead [EKG Documentation Completion] [RC] STAT Blood Culture x2 Reflex Set [OM.PC] Stat 06/19/20 18:43 Lactated Ringers [Ringers, Lactated] 1,000 ml IV .BOLUS 06/19/20 19:05 Abdomen Pelvis wo Cont [CT] Stat Chest wo Cont [CT] Stat Pharmacy to Dose - Vancomycin 1 dose .XX ONETIME ONE 06/19/20 19:06 CORONAVIRUS COVID-19 PCR PHL Stat 06/19/20 19:19 Admission Status [Patient Status] [ADT] Stat 06/19/20 20:00 Vancomycin 2 gm Sodium Chloride 0.9% [Normal Saline] 500 ml IV ONETIME 06/20/20 08:00 Vancomycin 1.25 gm Sodium Chloride 0.9% [Normal Saline (AdvBag)] 250 ml IV Q12H - Assessment/Plan Last 24 Hours: My Active Orders 06/19/20 17:19 CULTURE BLOOD [BC] Stat 06/19/20 17:29 CULTURE BLOOD [BC] Stat 06/19/20 17:44 EKG 12 Lead [EKG Documentation Completion] [RC] STAT Blood Culture x2 Reflex Set [OM.PC] Stat 06/19/20 18:43 Lactated Ringers [Ringers, Lactated] 1,000 ml IV .BOLUS 06/19/20 19:05 Abdomen Pelvis wo Cont [CT] Stat Chest wo Cont [CT] Stat Pharmacy to Dose - Vancomycin 1 dose .XX ONETIME ONE 06/19/20 19:06 CORONAVIRUS COVID-19 PCR PHL Stat 06/19/20 19:19 Admission Status [Patient Status] [ADT] Stat 06/19/20 20:00 Vancomycin 2 gm Sodium Chloride 0.9% [Normal Saline] 500 ml IV ONETIME 06/20/20 08:00 Vancomycin 1.25 gm Sodium Chloride 0.9% [Normal Saline (AdvBag)] 250 ml IV Q12H
[2020-06-19 18:19] LABS: BLOOD UREA NITROGEN,BUN 51 mg/dL (7.0-18.0); CARBON DIOXIDE,CO2 25.6 mmol/L (21.0-32.0); CHLORIDE,CL 96 mmol/L (98-107); GLUCOSE RANDOM 158 mg/dL (74-106); POTASSIUM,K 4.1 mmol/L (3.5-5.1); SODIUM,NA 132 mmol/L (136-148)
[2020-06-19] MEDS ORDERED: Lactated Ringers 1,000 ML IV ONE ×2 (18:43→21:08)
--- NOTE | 2020-06-19 19:05 | CR ---
INDICATION: Sepsis TECHNIQUE: Chest 1 views COMPARISON: May 21, 2020 FINDINGS: Cardiovascular and mediastinum: Heart size and vasculature are normal in caliber and appearance. Lungs and pleural spaces: Lungs are clear. No sign of infiltrate or mass. No sign of pleural effusion. No pneumothorax. Bones and soft tissues: No significant findings. IMPRESSION: Negative chest. No sign of pneumonia. Dictated by Velasquez Boyce MD @ Jun 19 2020 7:03PM Signed by Dr. Velasquez Boyce @ Jun 19 2020 7:04PM
[2020-06-19] MEDS ORDERED: Cefepime 2 GM in Premix Bag 1 BAG IV ONE (19:06)
--- NOTE | 2020-06-19 19:24 | CT ---
HISTORY: Altered mental status. TECHNIQUE: Noncontrast head CT. COMPARISON: 05/21/2020. FINDINGS: There is no acute intracranial hemorrhage or acute ischemic infarct. 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 Chronic generalized cerebral and cerebellar volume loss. Chronic small vessel ischemic changes. Mild prominence of the ventricular system likely relates to central white matter volume loss. Mastoid air cells are clear. No acute sinusitis. No acute skull fracture. IMPRESSION: 1. No acute intracranial disease. 2. Generalized volume loss. 3. Remote infarct left cerebellar hemisphere. 4. Mild chronic small vessel ischemic changes. Dictated by Juvencio Sainz MD @ 06/19/2020 7:21:47 PM Please note that all CT scans at this facility use dose modulation, iterative reconstruction, and/or weight-based dosing when appropriate to reduce radiation dose to as low as reasonably achievable. Dictated by: Juvencio Sainz MD @ 06/19/2020 19:21:54 (Electronically Signed)
[2020-06-19] MEDS ORDERED: Vancomycin 2 GM in Sodium Chloride 0.9% 500 ML IV ONE (20:00)
[2020-06-19] MEDS ORDERED: Ziprasidone Mesylate 20 MG Vial IM ONE (20:42)
[2020-06-19] MEDS ORDERED: Water For Injection, Sterile 20 ML SDV INJECT ONE (20:42)
[2020-06-19] MEDS ORDERED: diphenhydrAMINE 50 MG/ML SDV IVPUSH ONE (20:43)
--- NOTE | 2020-06-19 20:53 | CT ---
Indication: Sepsis of unknown source Technique: Nonenhanced axial CT imaging through the abdomen and pelvis. Sagittal and coronal reconstructions are provided. Comparison: CT abdomen pelvis without contrast 06/19/2020 Findings: Examination is slightly suboptimal due to motion degradation, specially in the anterior mid abdomen. There is mild irregular urinary bladder wall thickening. Aquino catheter is in place. Small amount of air in the urinary bladder lumen is likely secondary to catheterization. There is mild prostatomegaly. There is no hydronephrosis. There is slight prominence of the right renal pelvis with surrounding inflammatory stranding. Multiple renal cystic lesions are present bilaterally. A few of the lesions demonstrate attenuation greater than simple fluid, largest measuring 3 cm in the right upper pole, raising possibility of hemorrhagic/proteinaceous cyst or solid lesion. A 3 mm calcific density in the upper pole of the left kidney may represent a small nonobstructing stone or parenchymal calcification. There are no obstructing renal stones. Ill-defined hyperdensity along the posterior wall of the gallbladder likely represents layering sludge. There is no pericholecystic fluid. There is unremarkable noncontrast appearance of the liver, spleen, pancreas, and adrenal glands. There is normal caliber of the abdominal aorta. A few prominent nonspecific lymph nodes are noted in the upper abdomen. The stomach and small bowel are unremarkable. There is mild diverticulosis of the sigmoid colon. There is no colonic wall thickening or pericolonic inflammatory stranding. There is no free intraperitoneal fluid or air. There is focal skin thickening and ulceration in the right sacral region with underlying fat stranding and subcutaneous emphysema. Findings are concerning for infected decubitus ulcer. No discrete abscess. Impression: 1. Focal skin thickening and ulceration in the right sacral region with underlying fat stranding and subcutaneous emphysema. Findings are concerning for infected decubitus ulcer. No discrete abscess. 2. Mild irregular urinary bladder wall thickening, suggesting study. Slight prominence of the renal pelvis with surrounding inflammatory fat stranding, concerning for pyelonephritis. Correlate with urinalysis. 3. A 3 mm left upper pole nonobstructing stone versus small parenchymal calcification. No evidence of urinary obstruction. 4. Multiple bilateral renal cystic lesions, some of which demonstrate attenuation greater than simple fluid, raising possibility complex cyst or solid neoplasm. Correlate with ultrasound. 5. Other findings including gallbladder sludge and colonic diverticulosis. Please note that all CT scans at this facility use dose modulation, iterative reconstruction, and/or weight-based dosing when appropriate to reduce radiation dose to as low as reasonably achievable. Dictated by Tamiko Lewis MD @ Jun 19 2020 8:31PM Signed by Dr. Tamiko Lewis @ Jun 19 2020 8:51PM
--- NOTE | 2020-06-19 21:01 | CT ---
INDICATION: Sepsis of unknown source COMPARISON: none TECHNIQUE: Nonenhanced axial CT imaging through the chest. Sagittal and coronal reconstructions are provided. FINDINGS: There is a solid oval nodular density with in the posterior right lung apex measuring 13 x 16 x 11 mm. There is no airspace consolidation, pleural effusion, pneumothorax. Mild atelectasis is noted in the lung bases. No lymphadenopathy is identified in the mediastinum and pulmonary ledy. The heart is nonenlarged. Coronary calcifications are noted. There is no pericardial effusion. There is normal caliber of the main pulmonary artery and thoracic aorta. Bridging anterior osteophytes in the mid to lower thoracic spine are consistent with changes of diffuse idiopathic skeletal hyperostosis. IMPRESSION: 1. A 14 mm solid pulmonary nodule in the posterior right lung apex. Further evaluation is recommended with either follow-up chest CT, PET-CT, or biopsy in 3 months. 2. Mild bibasilar atelectasis. Otherwise no acute intrathoracic process. 3. Coronary artery disease. Please note that all CT scans at this facility use dose modulation, iterative reconstruction, and/or weight-based dosing when appropriate to reduce radiation dose to as low as reasonably achievable. Dictated by Tamiko Lewis MD @ Jun 19 2020 8:51PM Signed by Dr. Tamiko Lewis @ Jun 19 2020 9:01PM
[2020-06-19] MEDS ORDERED: Morphine 2 MG/ML SYRINGE IVPUSH PRN (21:04)
[2020-06-19] MEDS ORDERED: Ondansetron 4 MG/2 ML SDV IVPUSH PRN (21:04)
[2020-06-19] MEDS ORDERED: Albuterol/Ipratropium 3.0-0.5 MG/3 ML Neb Soln NEB PRN (21:04)
--- NOTE | 2020-06-19 21:12 | PCM.HP.2 ---
H&P History of Present Illness - General Date of Service: 06/19/20 Admit Problem/Dx: Admission Diagnosis/Problem Admission Diagnosis/Problem Acute kidney injury History Limitations: Reports: Altered Mental Status (dementia) - History of Present Illness Initial Comments - Free Text/Narative: 62-year-old male from [facility], with a past medical history of diabetes mellitus, myocardial infarction, depression, BPH, possible vascular dementia, status post Aquino catheter placement, morbid obesity, chronic kidney disease, pressure ulcers, currently patient is reportedly on clindamycin treatment for bu ttock cellulitis and IV gentamicin therapy for UTI, who was sent to the ED due to abnormal labs, particular leukocytosis and elevated creatinine. In the ER his labs were significant for leucocytosis,and elevated creatinine, CT scan abdomen showed possible Pyelonephritis, and subcutaneous findings suggestive of infected pressure ulcer, and complex renal cysts vs Neoplasm, CT chest showed a right pu lmonary nodule. Patient was admitted for further management. - Related Data Allergies/Adverse Reactions: Allergies Allergy/AdvReac Type Severity Reaction Status Date / Time No Known Allergies Allergy Verified 06/19/20 21:39 Home Medications: Home Meds Finasteride 5 mg PO DAILY 08/04/16 [History] Acetaminophen [Acetaminophen Extra Strength] 1 tab PO TID PRN 05/27/19 [History] Aspirin [Halfprin] 81 mg PO DAILY 05/27/19 [History] Furosemide [Lasix] 20 mg PO DAILY 05/27/19 [History] Linagliptin [Tradjenta] 5 mg PO DAILY 05/27/19 [History] Menthol [Biofreeze] 1 applic TOP BID PRN 05/27/19 [History] Multivitamin [Multivitamins] 1 tab PO DAILY 05/27/19 [History] Tamsulosin HCl [Flomax] 0.4 mg PO DAILY 05/27/19 [History] Clindamycin HCl 300 mg PO TID 06/19/20 [History] Gentamicin/Normal Saline [Gentamicin 80 MG/NS 100 ML Piggyback] 80 mg IV MOWEFR 06/19/20 [History] Menthol/Camphor [Sarna Anti-Itch] 1 applic TOP Q12H PRN 06/19/20 [History] Nystatin [Nystop] 1 gm TOP TID 06/19/20 [History] polyethylene glycoL 3350 [MiraLAX] 17 gm PO DAILY PRN 06/19/20 [History] Past Medical History HEENT History: Reports: Hard of Hearing, Other (See Below) Other HEENT History: top & bottom denture, dental caries Cardiovascular History: Reports: High Cholesterol, Hypertension, SC, Other (See Below) Other Cardiovascular History: atherosclerotic heart disease Respiratory History: Reports: None Gastrointestinal History: Reports: Colon Polyp, Diverticulosis Genitourinary History: Reports: BPH, Renal Disease, Urinary Incontinence, UTI, Recurrent, Other (See Below) Other Genitourinary History: obstructive and reflux uropathy, fitting and adjustment of urinary device, CKD Musculoskeletal History: Reports: Osteoarthritis, Other (See Below) Other Musculoskeletal History: Muscle weakness, difficulty walking, other abnormalities of gait and mobility, pain in right knee, lack of coordination Neurological History: Reports: None Psychiatric History: Reports: Other (See Below) Other Psychiatric History: Personality disorder Endocrine/Metabolic History: Reports: Diabetes, Type II, Obesity/BMI 30+ Hematologic History: Reports: None Immunologic History: Reports: None Oncologic (Cancer) History: Reports: None Dermatologic History: Reports: Other (See Below) Other Dermatologic History: pressure ulcer of right buttock, hx of neoplasm of skin, pressure ulcer of lefr buttock, sacral region - Infectious Disease History Infectious Disease History: Reports: None - Past Surgical History Head Surgeries/Procedures: Reports: None HEENT Surgical History: Reports: Oral Surgery Cardiovascular Surgical History: Reports: None Respiratory Surgical History: Reports: None GI Surgical History: Reports: Colonoscopy Male Surgical History: Reports: None Endocrine Surgical History: Reports: None Neurological Surgical History: Reports: None Musculoskeletal Surgical History: Reports: None Oncologic Surgical History: Reports: None Dermatological Surgical History: Reports: None - History Comment History Comment: etoh "3x a month" Social & Family History - Tobacco Use Smoking Status *Q: Unknown Ever Smoked - Caffeine Use Caffeine Use: Reports: None H&P Review of Systems - Review of Systems: Review Of Systems: See Below General: Denies: Fever, Chills Cardiovascular: Denies: Chest Pain, Palpitations, Dyspnea on Exertion, Edema, Lightheadedness Gastrointestinal: Denies: Abdominal Pain, Anorexia, Black Stool Genitourinary: Denies: Dysuria, Frequency, Burning Neurological: Reports: Confusion, Tremors. Denies: Headache, Numbness Exam - Exam Exam: See Below - Vital Signs Vital Signs: Last Vital Signs Temp 36.2 C 06/19/20 20:45 Pulse 86 06/19/20 20:10 Resp 18 06/19/20 20:10 BP 96/60 06/19/20 20:10 Pulse Ox 94 L 06/19/20 20:10 Weight: 99.79 kg - Exam General: Cooperative. No: Alert, Oriented HEENT: Other (dry mucosa ). No: Mucosa Moist & [place] Neck: Supple, Trachea Midline Lungs: Clear to Auscultation, Normal Respiratory Effort Cardiovascular: Regular Rate, Regular Rhythm GI/Abdominal Exam: Normal Bowel Sounds, Soft, Non-Tender Extremities: Normal Range of Motion, Redness. No: Non-Tender, Leg Pain Peripheral Pulses: 3+: Dorsalis Pedis (L), Dorsalis Pedis (R) Skin: Wound, Decubitis - Patient Data Lab Results Last 24 hrs: Laboratory Results - last 24 hr 06/19/20 06/19/20 06/19/20 Range/Units 17:19 17:19 17:19 WBC 23.23 H (4.0-11.0) K/uL RBC 4.54 (4.50-5.90) M/uL Hgb 11.3 L (13.0-17.0) g/dL Hct 35.6 L (38.0-50.0) % MCV 78.4 L (80.0-98.0) fL MCH 24.9 L (27.0-32.0) pg MCHC 31.7 (31.0-37.0) g/dL RDW Std Deviation 46.6 (28.0-62.0) fl RDW Coeff of Alberto 16 H (11.0-15.0) % Plt Count 281 (150-400) K/uL MPV 9.40 (7.40-12.00) fL Neut % (Auto) 89.4 H (48.0-80.0) % Lymph % (Auto) 3.9 L (16.0-40.0) % [place]once % (Auto) 6.6 (0.0-15.0) % Eos % (Auto) 0.0 (0.0-7.0) % Baso % (Auto) 0.1 (0.0-1.5) % Neut # (Auto) 20.8 H (1.4-5.7) K/uL Lymph # (Auto) 0.9 (0.6-2.4) K/uL Ponce # (Auto) 1.5 H (0.0-0.8) K/uL Eos # (Auto) 0.0 (0.0-0.7) K/uL Baso # (Auto) 0.0 (0.0-0.1) K/uL Nucleated RBC % 0.0 /100WBC Nucleated RBCs # 0 K/uL INR 1.19 Lactate 0.9 (0.20-2.00) mmol/L Sodium (136-148) mmol/L Potassium (3.5-5.1) mmol/L Chloride (98-107) mmol/L Carbon Dioxide (21.0-32.0) mmol/L BUN (7.0-18.0) mg/dL Creatinine (0.8-1.3) mg/dL Est Cr Clr Drug Dosing Estimated GFR (MDRD) ml/min Glucose (74-106) mg/dL Calcium (8.5-10.1) mg/dL Total Bilirubin (0.2-1.0) mg/dL AST (15-37) IU/L ALT (14-63) IU/L Alkaline Phosphatase (46-116) U/L Troponin I (0.000-0.056) ng/mL Total Protein (6.4-8.2) g/dL Albumin (3.4-5.0) g/dL Globulin (2.6-4.0) g/dL Albumin/Globulin Ratio (0.9-1.6) Urine Color Urine Appearance Urine pH (5.0-8.0) Ur Specific [place] (1.001-1.035) Urine Protein (NEGATIVE) mg/dL Urine Glucose (UA) (NEGATIVE) mg/dL Urine Ketones (NEGATIVE) mg/dL Urine Occult Blood (NEGATIVE) Urine Nitrite (NEGATIVE) Urine Bilirubin (NEGATIVE) Urine Urobilinogen (<2.0) EU/dL Ur Leukocyte Esterase (NEGATIVE) Urine RBC (0-2/HPF) Urine WBC (0-5/HPF) Ur Epithelial Cells (NONE-FEW) Urine Bacteria (NEGATIVE) COVID-19 (MARIA T) (NEGATIVE) 06/19/20 06/19/20 06/19/20 Range/Units 17:19 17:23 20:10 WBC (4.0-11.0) K/uL RBC (4.50-5.90) M/uL Hgb (13.0-17.0) g/dL Hct (38.0-50.0) % MCV (80.0-98.0) fL MCH (27.0-32.0) pg MCHC (31.0-37.0) g/dL RDW Std Deviation (28.0-62.0) fl RDW Coeff of Alberto (11.0-15.0) % Plt Count (150-400) K/uL MPV (7.40-12.00) fL Neut % (Auto) (48.0-80.0) % Lymph % (Auto) (16.0-40.0) % [place] % (Auto) (0.0-15.0) % Eos % (Auto) (0.0-7.0) % Baso % (Auto) (0.0-1.5) % Neut # (Auto) (1.4-5.7) K/uL Lymph # (Auto) (0.6-2.4) K/uL [place]once # (Auto) (0.0-0.8) K/uL Eos # (Auto) (0.0-0.7) K/uL Baso # (Auto) (0.0-0.1) K/uL Nucleated RBC % /100WBC Nucleated RBCs # K/uL INR Lactate (0.20-2.00) mmol/L Sodium 132 L (136-148) mmol/L Potassium 4.1 (3.5-5.1) mmol/L Chloride 96 L (98-107) mmol/L Carbon Dioxide 25.6 (21.0-32.0) mmol/L BUN 51 H (7.0-18.0) mg/dL Creatinine 2.3 H (0.8-1.3) mg/dL Est Cr Clr Drug Dosing TNP Estimated GFR (MDRD) 28.5 ml/min Glucose 158 H (74-106) mg/dL Calcium 8.8 (8.5-10.1) mg/dL Total Bilirubin 0.6 (0.2-1.0) mg/dL AST 64 H (15-37) IU/L ALT 45 (14-63) IU/L Alkaline Phosphatase 109 (46-116) U/L Troponin I < 0.050 (0.000-0.056) ng/mL Total Protein 6.8 (6.4-8.2) g/dL Albumin 2.6 L (3.4-5.0) g/dL Globulin 4.2 H (2.6-4.0) g/dL Albumin/Globulin Ratio 0.6 L (0.9-1.6) Urine Color YELLOW Urine Appearance CLEAR Urine pH 5.5 (5.0-8.0) Ur Specific [place] 1.020 (1.001-1.035) Urine Protein TRACE H (NEGATIVE) mg/dL Urine Glucose (UA) NEGATIVE (NEGATIVE) mg/dL Urine Ketones NEGATIVE (NEGATIVE) mg/dL Urine Occult Blood MODERATE H (NEGATIVE) Urine Nitrite NEGATIVE (NEGATIVE) Urine Bilirubin NEGATIVE (NEGATIVE) Urine Urobilinogen 0.2 (<2.0) EU/dL Ur Leukocyte Esterase SMALL H (NEGATIVE) Urine RBC 1-2 (0-2/HPF) Urine WBC 3-4 (0-5/HPF) Ur Epithelial Cells RARE (NONE-FEW) Urine Bacteria RARE (NEGATIVE) COVID-19 (MARIA T) NEGATIVE (NEGATIVE) Result Diagrams: 06/19/20 17:19 06/19/20 17:19 Sepsis Event Note - Evaluation Sepsis Screening Result: No Definite Risk - Focused Exam Vital Signs: Vital Signs Temp Pulse Resp BP Pulse Ox 06/19/20 20:45 36.2 C 06/19/20 20:10 86 18 96/60 94 L 06/19/20 19:06 101 H 18 92/53 L 94 L 06/19/20 17:08 36.2 C 78 15 121/67 92 L - Problem List (1) Acute kidney injury SNOMED Code(s): 23241650, 71086855 ICD Code: N17.9 - ACUTE KIDNEY FAILURE, UNSPECIFIED Status: Acute Current Visit: Yes (2) Decubital ulcer SNOMED Code(s): 789966873 ICD Code: L89.90 - PRESSURE ULCER OF UNSPECIFIED SITE, UNSPECIFIED STAGE Status: Acute Current Visit: Yes (3) Dementia SNOMED Code(s): 80475654 ICD Code: F03.90 - UNSPECIFIED DEMENTIA WITHOUT BEHAVIORAL DISTURBANCE Status: Acute Current Visit: Yes (4) Depression SNOMED Code(s): 02826642 ICD Code: F32.9 - MAJOR DEPRESSIVE DISORDER, SINGLE EPISODE, UNSPECIFIED Status: Acute Current Visit: Yes (5) CAD (coronary artery disease) SNOMED Code(s): 61167169 ICD Code: I25.10 - ATHSCL HEART DISEASE OF [place] CORONARY ARTERY W/O ANG PCTRS Status: Acute Current Visit: Yes (6) Diabetes SNOMED Code(s): 81533838 ICD Code: E11.9 - TYPE 2 DIABETES MELLITUS WITHOUT COMPLICATIONS Status: Acute Current Visit: Yes Problem List Initiated/Reviewed/Updated: Yes Orders Last 24hrs: Active Orders 24 hr Category Date Time Status Admission Status [Patient Status] [ADT] Stat ADT 06/19/20 19:19 Active Ambulate [RC] ASDIRECTED Care 06/19/20 21:04 Active Antiembolic Devices [RC] PER UNIT ROUTINE Care 06/19/20 21:06 Active EKG 12 Lead [EKG Documentation Completion] [RC] STAT Care 06/19/20 17:44 Active Oxygen Therapy [RC] PRN Care 06/19/20 21:04 Active RT Aerosol Therapy [RC] ASDIRECTED Care 06/19/20 21:06 Active VTE/DVT Education [RC] PER UNIT ROUTINE Care 06/19/20 21:04 Active Vital Signs [RC] Q4H Care 06/19/20 21:04 Active Consult to Wound Care Services [CONS] Routine Cons 06/19/20 21:07 Active Clear Liquid Diet [DIET] Diet 06/19/20 Dinner Active CULTURE BLOOD [BC] Stat Lab 06/19/20 17:19 Received CULTURE BLOOD [BC] Stat Lab 06/19/20 17:29 Received VANCOMYCIN TROUGH [CHEM] Timed Lab 06/21/20 07:30 Ordered Albuterol/Ipratropium [DuoNeb 3.0-0.5 MG/3 ML] Med 06/19/20 21:04 Ordered 3 ml NEB Q4HRRT PRN Cefepime [Maxipime in D5W 1 GM/50 ML] 1 gm Med 06/20/20 03:00 Ordered Premix Bag 1 bag IV Q8H Heparin Sodium Med 06/19/20 21:15 Ordered 5,000 units SUBCUT Q8H Lactated Ringers [Ringers, Lactated] 1,000 ml Med 06/19/20 21:08 Ordered IV .BOLUS Lactated Ringers [Ringers, Lactated] 1,000 ml Med 06/19/20 21:15 Ordered IV ASDIRECTED Morphine Med 06/19/20 21:04 Ordered 1 mg IVPUSH Q4H PRN Ondansetron [Zofran] Med 06/19/20 21:04 Ordered 4 mg IVPUSH Q4H PRN Pantoprazole [ProTONIX IV] Med 06/20/20 09:00 Ordered 40 mg IV DAILY Pharmacy to Dose - Vancomycin Med 06/19/20 21:15 Ordered 1 dose .XX ASDIRECTED Pharmacy to Dose - Vancomycin Med 06/19/20 19:05 Pending 1 dose .XX ONETIME ONE Vancomycin 1.25 gm Med 06/20/20 08:00 Active Sodium Chloride 0.9% [Normal Saline (AdvBag)] 250 ml IV Q12H Vancomycin 2 gm Med 06/19/20 20:00 Active Sodium Chloride 0.9% [Normal Saline] 500 ml IV ONETIME Blood Culture x2 Reflex Set [OM.PC] Stat Oth 06/19/20 17:44 Ordered Sequential Compression Device [OM.PC] Per Unit Routine Ot 06/19/20 21:05 Ordered Medication Orders Albuterol/Ipratropium (Duoneb 3.0-0.5 Mg/3 Ml) 3 ml NEB Q4HRRT PRN PRN Reason: Shortness Of Breath/wheezing Heparin Sodium (Porcine) (Heparin Sodium) 5,000 units SUBCUT Q8H [facility] Vancomycin HCl 2 gm/ Sodium (Chloride) 500 mls @ 333.333 mls/hr IV ONETIME ONE Stop: 06/19/20 21:29 Last Admin: 06/19/20 20:06 Dose: 333.333 mls/hr Documented by: ZULY Vancomycin HCl 1.25 gm/ Sodium (Chloride) 250 mls @ 166.667 mls/hr IV Q12H [facility] Lactated Ringer's (Ringers, Lactated) 1,000 mls @ 999 mls/hr IV .BOLUS ONE Stop: 06/19/20 22:08 Lactated Ringer's (Ringers, Lactated) 1,000 mls @ 100 mls/hr IV ASDIRECTED [facility] Cefepime HCl 1 gm/ Premix 50 mls @ 100 mls/hr IV Q8H [facility] Morphine Sulfate (Morphine) 1 mg IVPUSH Q4H PRN PRN Reason: Pain (severe 7-10) Stop: 06/20/20 21:06 Ondansetron HCl (Zofran) 4 mg IVPUSH Q4H PRN PRN Reason: Nausea/Vomiting Pantoprazole Sodium (Protonix Iv) 40 mg IV DAILY [facility] Vancomycin HCl (Pharmacy To Dose - Vancomycin) 1 dose .XX ONETIME ONE Stop: 06/19/20 19:06 Vancomycin HCl (Pharmacy To Dose - Vancomycin) 1 dose .XX ASDIRECTED [facility] Assessment/Plan Comment:: 69 y/o admitted for sepsis, DONG CT scan abdomen and chest noted, concern of malignancy, needs repeat imaging in near future and goals of life discussion with family cont broad spectrum antibiotics for now f/u on blood cultures cont IV fluids, patient looks very dry clinically monitor BMP daily Heparin for DVT ppx Wound care for decubitus ulcer Hold Lasix , nephrotoxic drugs cont home meds as appropriate
[2020-06-19] MEDS ORDERED: Polyethylene Glycol 3350 Powder 17 GM Packet PO PRN (21:14)
[2020-06-19] MEDS ORDERED: MENTHOL TOP PRN ×2 (21:14)
[2020-06-19] MEDS ORDERED: CAMPHOR TOP PRN (21:14)
[2020-06-19] MEDS ORDERED: Lactated Ringers 1,000 ML IV SCH (21:15)
[2020-06-19] MEDS: Heparin Sodium 5,000 Units/ML Vial SUBCUT SCH (23:22)
[2020-06-19] MEDS: Nystatin Topical Powder 15 GM Bottle TOP SCH (23:25)
[2020-06-20] MEDS ORDERED: Cefepime 1 GM in Premix Bag 1 BAG IV SCH ×2 (03:00→08:00)
[2020-06-20] MEDS: Nystatin Topical Powder 15 GM Bottle TOP SCH ×2 (05:56→13:12)
[2020-06-20] MEDS: Heparin Sodium 5,000 Units/ML Vial SUBCUT SCH ×2 (05:57→13:12)
[2020-06-20 06:25] LABS: CARBON DIOXIDE,CO2 28.7 mmol/L (21.0-32.0); POTASSIUM,K 3.6 mmol/L (3.5-5.1)
--- NOTE | 2020-06-20 07:57 | PCM.PN ---
- General Info Date of Service: 06/20/20 Admission Dx/Problem (Free Text): Admission Diagnosis/Problem Admission Diagnosis/Problem Acute kidney injury, infected decubitus ulcer, pyelonephritis Subjective Update: Reports he is tired this morning, no chest pain or SOB. denies overt pain to perineal area. No other concerns. - Review of Systems General: Reports: No Symptoms HEENT: Reports: No Symptoms Gastrointestinal: Reports: No Symptoms. Denies: Abdominal Pain, Nausea, Vomiting Genitourinary: Reports: No Symptoms Musculoskeletal: Reports: No Symptoms Skin: Reports: No Symptoms Neurological: Reports: No Symptoms Psychiatric: Reports: No Symptoms - Patient Data Vitals - Most Recent: Last Vital Signs Temp 99.1 F 06/20/20 03:56 Pulse 89 06/20/20 03:56 Resp 19 06/20/20 03:56 BP 117/65 06/20/20 03:56 Pulse Ox 94 L 06/20/20 03:56 Weight - Most Recent: 111 kg I&O - Last 24 Hours: Intake & Output 06/19/20 06/20/20 06/20/20 22:59 06:59 14:59 Intake Total 1540 Output Total 700 Balance 840 Lab Results Last 24 Hours: Laboratory Results - last 24 hr 06/19/20 06/19/20 06/19/20 Range/Units 17:19 17:19 17:19 WBC 23.23 H (4.0-11.0) K/uL RBC 4.54 (4.50-5.90) M/uL Hgb 11.3 L (13.0-17.0) g/dL Hct 35.6 L (38.0-50.0) % MCV 78.4 L (80.0-98.0) fL MCH 24.9 L (27.0-32.0) pg MCHC 31.7 (31.0-37.0) g/dL RDW Std Deviation 46.6 (28.0-62.0) fl RDW Coeff of Alberto 16 H (11.0-15.0) % Plt Count 281 (150-400) K/uL MPV 9.40 (7.40-12.00) fL Neut % (Auto) 89.4 H (48.0-80.0) % Lymph % (Auto) 3.9 L (16.0-40.0) % [place] % (Auto) 6.6 (0.0-15.0) % Eos % (Auto) 0.0 (0.0-7.0) % Baso % (Auto) 0.1 (0.0-1.5) % Neut # (Auto) 20.8 H (1.4-5.7) K/uL Lymph # (Auto) 0.9 (0.6-2.4) K/uL [place] # (Auto) 1.5 H (0.0-0.8) K/uL Eos # (Auto) 0.0 (0.0-0.7) K/uL Baso # (Auto) 0.0 (0.0-0.1) K/uL Nucleated RBC % 0.0 /100WBC Nucleated RBCs # 0 K/uL INR 1.19 Lactate 0.9 (0.20-2.00) mmol/L Sodium (136-148) mmol/L Potassium (3.5-5.1) mmol/L Chloride (98-107) mmol/L Carbon Dioxide (21.0-32.0) mmol/L BUN (7.0-18.0) mg/dL Creatinine (0.8-1.3) mg/dL Est Cr Clr Drug Dosing Estimated GFR (MDRD) ml/min Glucose (74-106) mg/dL Calcium (8.5-10.1) mg/dL Phosphorus (2.6-4.7) mg/dL Magnesium (1.8-2.4) mg/dL Total Bilirubin (0.2-1.0) mg/dL AST (15-37) IU/L ALT (14-63) IU/L Alkaline Phosphatase (46-116) U/L Troponin I (0.000-0.056) ng/mL Total Protein (6.4-8.2) g/dL Albumin (3.4-5.0) g/dL Globulin (2.6-4.0) g/dL Albumin/Globulin Ratio (0.9-1.6) Urine Color Urine Appearance Urine pH (5.0-8.0) Ur Specific [place] (1.001-1.035) Urine Protein (NEGATIVE) mg/dL Urine Glucose (UA) (NEGATIVE) mg/dL Urine Ketones (NEGATIVE) mg/dL Urine Occult Blood (NEGATIVE) Urine Nitrite (NEGATIVE) Urine Bilirubin (NEGATIVE) Urine Urobilinogen (<2.0) EU/dL Ur Leukocyte Esterase (NEGATIVE) Urine RBC (0-2/HPF) Urine WBC (0-5/HPF) Ur Epithelial Cells (NONE-FEW) Urine Bacteria (NEGATIVE) COVID-19 (MARIA T) (NEGATIVE) 06/19/20 06/19/20 06/19/20 Range/Units 17:19 17:23 20:10 WBC (4.0-11.0) K/uL RBC (4.50-5.90) M/uL Hgb (13.0-17.0) g/dL Hct (38.0-50.0) % MCV (80.0-98.0) fL MCH (27.0-32.0) pg MCHC (31.0-37.0) g/dL RDW Std Deviation (28.0-62.0) fl RDW Coeff of Alberto (11.0-15.0) % Plt Count (150-400) K/uL MPV (7.40-12.00) fL Neut % (Auto) (48.0-80.0) % Lymph % (Auto) (16.0-40.0) % [place] % (Auto) (0.0-15.0) % Eos % (Auto) (0.0-7.0) % Baso % (Auto) (0.0-1.5) % Neut # (Auto) (1.4-5.7) K/uL Lymph # (Auto) (0.6-2.4) K/uL [place] # (Auto) (0.0-0.8) K/uL Eos # (Auto) (0.0-0.7) K/uL Baso # (Auto) (0.0-0.1) K/uL Nucleated RBC % /100WBC Nucleated RBCs # K/uL INR Lactate (0.20-2.00) mmol/L Sodium 132 L (136-148) mmol/L Potassium 4.1 (3.5-5.1) mmol/L Chloride 96 L (98-107) mmol/L Carbon Dioxide 25.6 (21.0-32.0) mmol/L BUN 51 H (7.0-18.0) mg/dL Creatinine 2.3 H (0.8-1.3) mg/dL Est Cr Clr Drug Dosing TNP Estimated GFR (MDRD) 28.5 ml/min Glucose 158 H (74-106) mg/dL Calcium 8.8 (8.5-10.1) mg/dL Phosphorus (2.6-4.7) mg/dL Magnesium (1.8-2.4) mg/dL Total Bilirubin 0.6 (0.2-1.0) mg/dL AST 64 H (15-37) IU/L ALT 45 (14-63) IU/L Alkaline Phosphatase 109 (46-116) U/L Troponin I < 0.050 (0.000-0.056) ng/mL Total Protein 6.8 (6.4-8.2) g/dL Albumin 2.6 L (3.4-5.0) g/dL Globulin 4.2 H (2.6-4.0) g/dL Albumin/Globulin Ratio 0.6 L (0.9-1.6) Urine Color YELLOW Urine Appearance CLEAR Urine pH 5.5 (5.0-8.0) Ur Specific [place] 1.020 (1.001-1.035) Urine Protein TRACE H (NEGATIVE) mg/dL Urine Glucose (UA) NEGATIVE (NEGATIVE) mg/dL Urine Ketones NEGATIVE (NEGATIVE) mg/dL Urine Occult Blood MODERATE H (NEGATIVE) Urine Nitrite NEGATIVE (NEGATIVE) Urine Bilirubin NEGATIVE (NEGATIVE) Urine Urobilinogen 0.2 (<2.0) EU/dL Ur Leukocyte Esterase SMALL H (NEGATIVE) Urine RBC 1-2 (0-2/HPF) Urine WBC 3-4 (0-5/HPF) Ur Epithelial Cells RARE (NONE-FEW) Urine Bacteria RARE (NEGATIVE) COVID-19 (MARIA T) NEGATIVE (NEGATIVE) 06/20/20 06/20/20 Range/Units 05:51 05:51 WBC 18.47 H (4.0-11.0) K/uL RBC 4.24 L (4.50-5.90) M/uL Hgb 10.6 L (13.0-17.0) g/dL Hct 33.7 L (38.0-50.0) % MCV 79.5 L (80.0-98.0) fL MCH 25.0 L (27.0-32.0) pg MCHC 31.5 (31.0-37.0) g/dL RDW Std Deviation 47.5 (28.0-62.0) fl RDW Coeff of Alberto 16 H (11.0-15.0) % Plt Count 239 (150-400) K/uL MPV 9.10 (7.40-12.00) fL Neut % (Auto) 90.2 H (48.0-80.0) % Lymph % (Auto) 4.5 L (16.0-40.0) % [place] % (Auto) 5.1 (0.0-15.0) % Eos % (Auto) 0.1 (0.0-7.0) % Baso % (Auto) 0.1 (0.0-1.5) % Neut # (Auto) 16.7 H (1.4-5.7) K/uL Lymph # (Auto) 0.8 (0.6-2.4) K/uL [place] # (Auto) 0.9 H (0.0-0.8) K/uL Eos # (Auto) 0.0 (0.0-0.7) K/uL Baso # (Auto) 0.0 (0.0-0.1) K/uL Nucleated RBC % 0.0 /100WBC Nucleated RBCs # 0 K/uL INR Lactate (0.20-2.00) mmol/L Sodium 137 (136-148) mmol/L Potassium 3.6 (3.5-5.1) mmol/L Chloride 103 (98-107) mmol/L Carbon Dioxide 28.7 (21.0-32.0) mmol/L BUN 38 H (7.0-18.0) mg/dL Creatinine 1.8 H (0.8-1.3) mg/dL Est Cr Clr Drug Dosing 41.12 Estimated GFR (MDRD) 37.8 ml/min Glucose 108 H (74-106) mg/dL Calcium 8.3 L (8.5-10.1) mg/dL Phosphorus 2.5 L (2.6-4.7) mg/dL Magnesium 2.1 (1.8-2.4) mg/dL Total Bilirubin (0.2-1.0) mg/dL AST (15-37) IU/L ALT (14-63) IU/L Alkaline Phosphatase (46-116) U/L Troponin I (0.000-0.056) ng/mL Total Protein (6.4-8.2) g/dL Albumin (3.4-5.0) g/dL Globulin (2.6-4.0) g/dL Albumin/Globulin Ratio (0.9-1.6) Urine Color Urine Appearance Urine pH (5.0-8.0) Ur Specific [place] (1.001-1.035) Urine Protein (NEGATIVE) mg/dL Urine Glucose (UA) (NEGATIVE) mg/dL Urine Ketones (NEGATIVE) mg/dL Urine Occult Blood (NEGATIVE) Urine Nitrite (NEGATIVE) Urine Bilirubin (NEGATIVE) Urine Urobilinogen (<2.0) EU/dL Ur Leukocyte Esterase (NEGATIVE) Urine RBC (0-2/HPF) Urine WBC (0-5/HPF) Ur Epithelial Cells (NONE-FEW) Urine Bacteria (NEGATIVE) COVID-19 (MARIA T) (NEGATIVE) Med Orders - Current: Current Medications Albuterol/Ipratropium (Duoneb 3.0-0.5 Mg/3 Ml) 3 ml NEB Q4HRRT PRN PRN Reason: Shortness Of Breath/wheezing Aspirin (Halfprin) 81 mg PO DAILY [facility] Finasteride (Proscar) 5 mg PO DAILY [facility] Heparin Sodium (Porcine) (Heparin Sodium) 5,000 units SUBCUT Q8H [facility] Last Admin: 06/20/20 05:57 Dose: 5,000 units Documented by: Vancomycin HCl 1.25 gm/ Sodium (Chloride) 250 mls @ 166.667 mls/hr IV Q12H [facility] Lactated Ringer's (Ringers, Lactated) 1,000 mls @ 100 mls/hr IV ASDIRECTED [facility] Last Admin: 06/19/20 23:14 Dose: 100 mls/hr Documented by: Cefepime HCl 1 gm/ Premix 50 mls @ 100 mls/hr IV Q8H [facility] Morphine Sulfate (Morphine) 1 mg IVPUSH Q4H PRN PRN Reason: Pain (severe 7-10) Stop: 06/20/20 21:06 Multivitamins/Minerals/Vitamin C (Tab-A-Kiera) 1 tab PO DAILY [facility] Nystatin (Nystop) 0 gm TOP TID [facility] Last Admin: 06/20/20 05:56 Dose: 1 applic Documented by: Ondansetron HCl (Zofran) 4 mg IVPUSH Q4H PRN PRN Reason: Nausea/Vomiting Pantoprazole Sodium (Protonix Iv) 40 mg IV DAILY [facility] Menthol [Biofreeze] 1 each TOP BID PRN PRN Reason: Pain Menthol/Camphor [ (Sarna Anti-Itch]) 1 each TOP Q12H PRN PRN Reason: RASH Polyethylene Glycol (Miralax) 17 gm PO DAILY PRN PRN Reason: Constipation Tamsulosin HCl (Flomax) 0.4 mg PO DAILY [facility] Vancomycin HCl (Pharmacy To Dose - Vancomycin) 1 dose .XX ASDIRECTED [facility] Discontinued Medications Diphenhydramine HCl (Benadryl) 50 mg IVPUSH ONETIME ONE Stop: 06/19/20 20:44 Last Admin: 06/19/20 20:49 Dose: 50 mg Documented by: Lactated Ringer's (Ringers, Lactated) 1,000 mls @ 999 mls/hr IV .BOLUS ONE Stop: 06/19/20 19:43 Last Admin: 06/19/20 18:56 Dose: 999 mls/hr Documented by: Cefepime HCl 2 gm/ Premix 50 mls @ 100 mls/hr IV ONETIME ONE Stop: 06/19/20 19:35 Last Admin: 06/19/20 23:16 Dose: 100 mls/hr Documented by: Vancomycin HCl 2 gm/ Sodium (Chloride) 500 mls @ 333.333 mls/hr IV ONETIME ONE Stop: 06/19/20 21:29 Last Admin: 06/19/20 20:06 Dose: 333.333 mls/hr Documented by: Lactated Ringer's (Ringers, Lactated) 1,000 mls @ 999 mls/hr IV .BOLUS ONE Stop: 06/19/20 22:08 Last Admin: 06/19/20 22:03 Dose: 999 mls/hr Documented by: Cefepime HCl 1 gm/ Premix 50 mls @ 100 mls/hr IV Q8H [facility] Sterile Water (Sterile Water For Injection) 1.2 ml INJECT ONETIME ONE Stop: 06/19/20 20:43 Last Admin: 06/19/20 21:15 Dose: 1.2 ml Documented by: Vancomycin HCl (Pharmacy To Dose - Vancomycin) 1 dose .XX ONETIME ONE Stop: 06/19/20 19:06 Ziprasidone (Geodon) 20 mg IM ONETIME ONE Stop: 06/19/20 20:43 Last Admin: 06/19/20 20:58 Dose: 20 mg Documented by: - Exam General: Alert, Cooperative, No Acute Distress. No: Oriented Lungs: Normal Respiratory Effort, Decreased Breath Sounds Cardiovascular: Irregular Rhythm GI/Abdominal Exam: Normal Bowel Sounds, Soft, Tender (to palpation all over, but focus of pain) Extremities: Normal Inspection, Normal Range of Motion, Non-Tender, No Pedal Edema Wound/Incisions: Decubitis (large sacracl ulcer, 2 1/4 cm x 1 1/2, tunneling noted per wound care notes. linear abrasion next to wound at 3 o clock position of wound, fluctuance noted and with pressure foul malodorous fluid came from large sacral wound. Erythema surrounding wound. Patient denies pain. blanchable tissue surrouding wound. No necrotic tissue noted. No direct visualization of bone) Neurological: No New Focal Deficit Psy/Mental Status: Alert, Normal Affect, Normal Mood Sepsis Event Note - Evaluation Sepsis Screening Result: No Definite Risk - Focused Exam Vital Signs: Vital Signs Temp Pulse Resp BP Pulse Ox 06/20/20 03:56 99.1 F 89 19 117/65 94 L 06/20/20 01:04 99.6 F 79 20 101/50 L 92 L 06/19/20 21:04 97.7 F 90 20 115/57 L 95 06/19/20 20:45 97.2 F 06/19/20 20:10 86 18 96/60 94 L - Problem List & Annotations (1) Decubitus ulcer, stage 3 with infection SNOMED Code(s): 8333696 Code(s): L89.93 - PRESSURE ULCER OF UNSPECIFIED SITE, STAGE 3; L08.9 - LOCAL INFECTION OF THE SKIN AND SUBCUTANEOUS TISSUE, UNSP Status: Acute (2) Pyelonephritis SNOMED Code(s): 60060543 Code(s): N12 - TUBULO-INTERSTITIAL NEPHRITIS, NOT SPCF ACUTE OR CHRONIC Status: Acute (3) Acute kidney injury SNOMED Code(s): 82796184, 13211371 Code(s): N17.9 - ACUTE KIDNEY FAILURE, UNSPECIFIED Status: Acute (4) CAD (coronary artery disease) SNOMED Code(s): 43664632 Code(s): I25.10 - ATHSCL HEART DISEASE OF [place] CORONARY ARTERY W/O ANG PCTRS Status: Acute (5) Dementia SNOMED Code(s): 08070054 Code(s): F03.90 - UNSPECIFIED DEMENTIA WITHOUT BEHAVIORAL DISTURBANCE Status: Acute (6) Depression SNOMED Code(s): 15097790 Code(s): F32.9 - MAJOR DEPRESSIVE DISORDER, SINGLE EPISODE, UNSPECIFIED Status: Acute (7) Diabetes SNOMED Code(s): 38637660 Code(s): E11.9 - TYPE 2 DIABETES MELLITUS WITHOUT COMPLICATIONS Status: Acute (8) Ester rash of groin SNOMED Code(s): 775143621, 421411582 Code(s): B37.89 - OTHER SITES OF CANDIDIASIS Status: Acute (9) Obstructive uropathy SNOMED Code(s): 2159999 Code(s): N13.9 - OBSTRUCTIVE AND REFLUX UROPATHY, UNSPECIFIED Status: Acute (10) CKD (chronic kidney disease) SNOMED Code(s): 386612644 Code(s): N18.9 - CHRONIC KIDNEY DISEASE, UNSPECIFIED Status: Acute (11) Obesity SNOMED Code(s): 637555511, 494111044 Code(s): E66.9 - OBESITY, UNSPECIFIED Status: Acute (12) BPH (benign prostatic hyperplasia) SNOMED Code(s): 503795890 Code(s): N40.0 - BENIGN PROSTATIC HYPERPLASIA WITHOUT LOWER URINRY TRACT SYMP Status: Acute (13) Chronic indwelling Knutson catheter SNOMED Code(s): 517724299 Code(s): Z97.8 - PRESENCE OF OTHER SPECIFIED DEVICES Status: Acute - Problem List Review Problem List Initiated/Reviewed/Updated: No - My Orders Last 24 Hours: My Active Orders 06/20/20 07:50 Height and Weight [RC] DAILY Intake and Output Strict [RC] Q12H 06/20/20 07:51 Resuscitation Status Routine 06/20/20 07:53 UA RFX LITA AND CULT IF INDIC [URIN] Urgent 06/20/20 07:56 Retroperitoneal Comp [US] Routine 06/20/20 09:00 Tamsulosin [Flomax] 0.4 mg PO DAILY 06/21/20 05:11 BMP [BASIC METABOLIC PANEL,BMP] [CHEM] AM CBC WITH AUTO DIFF [HEME] AM 06/22/20 05:11 BMP [BASIC METABOLIC PANEL,BMP] [CHEM] AM CBC WITH AUTO DIFF [HEME] AM 06/23/20 05:11 BMP [BASIC METABOLIC PANEL,BMP] [CHEM] AM CBC WITH AUTO DIFF [HEME] AM - Plan Plan:: This 69 year old male admitted with sepsis secondary to infected decubitus ulcer, pyelonephritis, and DONG 1. Sepsis secondary to stage 3 infected decubitus sacral ulcer - Wound care nurse recommended surgical consult - Dr Pryor consulted for recommendations. May need surgical debridement - Broaden antibiotics, stop Cefepime and Add Meropenem to vancomycin - Wound culture of ulcer obtained - Frequent repositioning every 2 hours - Monitor diet, consult dietary to help with increase needs with wound. - BC and Wound culture pending. 2. Pyelonephritis - Noted on CT, UA clear will add UC and monitor - Continue Meropenem - Renal US unable to determine in masses are cystic vs solid. - Follow up with Urology - K[facility]son cares. 3. DONG: - Improved with IVFs, monitor today - Avoid nephro toxic medications. 4. DM Type 2; - BS TID with meals - Novolog SSI 5. HTN/CAD/ Hx Mi - Continue ASA - Monitor on telemetry 6. BPH with obstructive uropathy and chronic knutson - Knutson recently changed at [place] - Proscar and Flomax. 7. Vascular dementia: - Disoriented, but at baseline. - Attempted to call [facility], contact per [place]. No answer and voicemail is full. VTE prophylaxis: Heparin GI prophylaxis: Protonix Code Status: DNR/DNI Dispo: Pending consultation with surgery.
[2020-06-20] MEDS ORDERED: Pantoprazole 40 MG Vial IV SCH (09:00)
[2020-06-20] MEDS ORDERED: Finasteride 5 MG Tab PO SCH (09:00)
[2020-06-20] MEDS ORDERED: Aspirin 81 MG Tab.EC PO SCH (09:00)
[2020-06-20] MEDS ORDERED: Tamsulosin 0.4 MG Cap.ER PO SCH (09:00)
[2020-06-20] MEDS ORDERED: Multivitamin Tab PO SCH (09:00)
[2020-06-20] MEDS ORDERED: Lactated Ringers 500 ML IV ONE (09:50)
[2020-06-20] MEDS ORDERED: Meropenem 2 GM in Sodium Chloride 0.9% 100 ML IV SCH (10:00)
[2020-06-20] MEDS ORDERED: Insulin Aspart 100 Units/ML 3 ML Pen SUBCUT SCH (11:30)
--- NOTE | 2020-06-20 11:43 | US ---
Renal ultrasound: Multiple real-time images of the kidneys were obtained. Hypoechoic area is seen within the left kidney measuring 2.0 cm. Hypoechoic area is noted within the right kidney measuring 2.4 cm. No hydronephrosis is seen. Right kidney length is 12.0 cm and left kidney length is 12.2 cm. Impression: 1. Hypoechoic area within each kidney. Because of patient body habitus, cannot determine whether these are cystic or solid. 2. No hydronephrosis is seen. Diagnostic code #3 This report was dictated in MDT
--- NOTE | 2020-06-20 12:37 | PCM.SN.2 ---
- Free Text/Narrative Note: stage 4 sacral decubitis, reaching an organ, fascia, would benefit from timely surg debridement, as pt has severe medical comorbidity, morbid obese, dementia, DM, CKI, leukocytosis; as our surg facility is currently down, pt would need to be transferred to a facility for surgery treatment; tks for the consult and care of this kind and pleasant patient, recall if questions; [id number]
--- NOTE | 2020-06-20 12:47 | PCM.DCSUM1 ---
Discharge Summary - Hospital Course Brief History: 62-year-old male from [facility], with a past medical history of diabetes mellitus, myocardial infarction, depression, BPH, possible vascular dementia, status post Knutson catheter placement, morbid obesity, chronic kidney disease, pressure ulcers, currently patient is reportedly on clindamycin treatment for buttock cellulitis and IV gentamicin therapy for UTI, who was sent to the ED due to abnormal labs, particular leukocytosis and elevated creatinine. In the ER his labs were significant for leucocytosis,and elevated creatinine, CT scan abdomen showed possible Pyelonephritis, and subcutaneous findings suggestive of infected pressure ulcer, and complex renal cysts vs Neoplasm, CT chest showed a right pulmonary nodule. Patient was admitted for further management. - Discharge Data Discharge Date: 06/20/20 Discharge Disposition: DC/Tfer to [facility] 02 Condition: Fair - Referral to Home Health Primary Care Physician: Gibson Crisostomo MD - Discharge Diagnosis/Problem(s) (1) Decubitus ulcer, stage 3 with infection SNOMED Code(s): 9979476 ICD Code: L89.93 - PRESSURE ULCER OF UNSPECIFIED SITE, STAGE 3; L08.9 - LOCAL INFECTION OF THE SKIN AND SUBCUTANEOUS TISSUE, UNSP Status: Acute Current Visit: Yes (2) Pyelonephritis SNOMED Code(s): 04694814 ICD Code: N12 - TUBULO-INTERSTITIAL NEPHRITIS, NOT SPCF ACUTE OR CHRONIC Status: Acute Current Visit: Yes (3) Acute kidney injury SNOMED Code(s): 34724434, 65327295 ICD Code: N17.9 - ACUTE KIDNEY FAILURE, UNSPECIFIED Status: Acute Current Visit: Yes (4) CAD (coronary artery disease) SNOMED Code(s): 39601333 ICD Code: I25.10 - ATHSCL HEART DISEASE OF [place] CORONARY ARTERY W/O ANG PCTRS Status: Acute Current Visit: Yes (5) Dementia SNOMED Code(s): 46244168 ICD Code: F03.90 - UNSPECIFIED DEMENTIA WITHOUT BEHAVIORAL DISTURBANCE Status: Acute Current Visit: Yes (6) Depression SNOMED Code(s): 05499683 ICD Code: F32.9 - MAJOR DEPRESSIVE DISORDER, SINGLE EPISODE, UNSPECIFIED Status: Acute Current Visit: Yes (7) Diabetes SNOMED Code(s): 40005806 ICD Code: E11.9 - TYPE 2 DIABETES MELLITUS WITHOUT COMPLICATIONS Status: Acute Current Visit: Yes (8) Ester rash of groin SNOMED Code(s): 156436435, 846235521 ICD Code: B37.89 - OTHER SITES OF CANDIDIASIS Status: Acute Current Visit: No (9) Obstructive uropathy SNOMED Code(s): 6708600 ICD Code: N13.9 - OBSTRUCTIVE AND REFLUX UROPATHY, UNSPECIFIED Status: Acute Current Visit: No (10) CKD (chronic kidney disease) SNOMED Code(s): 696596443 ICD Code: N18.9 - CHRONIC KIDNEY DISEASE, UNSPECIFIED Status: Acute Current Visit: Yes (11) Obesity SNOMED Code(s): 160235905, 003362173 ICD Code: E66.9 - OBESITY, UNSPECIFIED Status: Acute Current Visit: Yes (12) BPH (benign prostatic hyperplasia) SNOMED Code(s): 657201746 ICD Code: N40.0 - BENIGN PROSTATIC HYPERPLASIA WITHOUT LOWER URINRY TRACT SYMP Status: Acute Current Visit: Yes (13) Chronic indwelling Kntuson catheter SNOMED Code(s): 636074845 ICD Code: Z97.8 - PRESENCE OF OTHER SPECIFIED DEVICES Status: Acute Current Visit: Yes - Patient Summary/Data Consults: Consultations 06/19/20 21:07 Consult to Wound Care Services [CONS] Routine 06/20/20 10:55 Consult to Physician [CONS] Routine Hospital Course: This 69 year old male admitted with sepsis secondary to infected decubitus ulcer, pyelonephritis, and DONG 1. Sepsis secondary to stage 3 infected decubitus sacral ulcer - Wound care nurse recommended surgical consult - Dr Pryor consulted for recommendations. - Broaden antibiotics, stop Cefepime and Add Meropenem to vancomycin - Wound culture of ulcer obtained - Frequent repositioning every 2 hours - Monitor diet, consult dietary to help with increase needs with wound. - BC and Wound culture pending. 2. Pyelonephritis - Noted on CT, UA clear will add UC and monitor - Continue Meropenem - Renal US unable to determine in masses are cystic vs solid. - Follow up with Urology - Knutson cares. 3. DONG: - Improved with IVFs, monitor today - Avoid nephro toxic medications. 4. DM Type 2; - BS TID with meals - Novolog SSI 5. HTN/CAD/ Hx Mi - Continue ASA - Monitor on telemetry 6. BPH with obstructive uropathy and chronic knutson - Knutson recently changed at [facility] - Proscar and Flomax. 7. Vascular dementia: - Disoriented, but at baseline. - Attempted to call Stella, contact per [facility]. No answer and voicemail is full. VTE prophylaxis: Heparin GI prophylaxis: Protonix Code Status: DNR/DNI Dispo: Dr Pryor was consulted, recommended surgical debridement for large decubitis infected ulcer. OR is unavailable for the forseeable future and due to comorbidities and acute illness Dr Pryor recommends transfer to higher level of care. I spoke with Stella as sisters phone is unavailable. Stella, Sister in law spoke with sister Pari. They are agreeable on transfer to [facility]. Dr Caraballo in the ED has accepted Álvaro for transfer via ground EMS ALS. Dr Lim updated on treatment plan. Stella - sister in law [phone] Pari- sister [phone] cell [phone] - Patient Instructions Diet: NPO - Discharge Plan Home Medications: Home Meds Finasteride 5 mg PO DAILY 08/04/16 [History] Acetaminophen [Acetaminophen Extra Strength] 1 tab PO TID PRN 05/27/19 [History] Aspirin [Halfprin] 81 mg PO DAILY 05/27/19 [History] Furosemide [Lasix] 20 mg PO DAILY 05/27/19 [History] Linagliptin [Tradjenta] 5 mg PO DAILY 05/27/19 [History] Menthol [Biofreeze] 1 applic TOP BID PRN 05/27/19 [History] Multivitamin [Multivitamins] 1 tab PO DAILY 05/27/19 [History] Tamsulosin HCl [Flomax] 0.4 mg PO DAILY 05/27/19 [History] Clindamycin HCl 300 mg PO TID 06/19/20 [History] Gentamicin/Normal Saline [Gentamicin 80 MG/NS 100 ML Piggyback] 80 mg IV MOWEFR 06/19/20 [History] Menthol/Camphor [Sarna Anti-Itch] 1 applic TOP Q12H PRN 06/19/20 [History] Nystatin [Nystop] 1 gm TOP TID 06/19/20 [History] polyethylene glycoL 3350 [MiraLAX] 17 gm PO DAILY PRN 06/19/20 [History] Referrals: Gibson Crisostomo MD [Primary Care Provider] - - Discharge Summary/Plan Comment DC Time >30 min.: No - Patient Data Vitals - Most Recent: Last Vital Signs Temp 99.6 F 06/20/20 12:00 Pulse 85 06/20/20 12:00 Resp 22 H 06/20/20 12:00 BP 120/65 06/20/20 12:00 Pulse Ox 93 L 06/20/20 12:00 Weight - Most Recent: 111 kg I&O - Last 24 hours: Intake & Output 06/19/20 06/20/20 06/20/20 22:59 06:59 14:59 Intake Total 1540 Output Total 700 Balance 840 Lab Results - Last 24 hrs: Laboratory Results - last 24 hr 06/19/20 06/19/20 06/19/20 Range/Units 17:19 17:19 17:19 WBC 23.23 H (4.0-11.0) K/uL RBC 4.54 (4.50-5.90) M/uL Hgb 11.3 L (13.0-17.0) g/dL Hct 35.6 L (38.0-50.0) % MCV 78.4 L (80.0-98.0) fL MCH 24.9 L (27.0-32.0) pg MCHC 31.7 (31.0-37.0) g/dL RDW Std Deviation 46.6 (28.0-62.0) fl RDW Coeff of Alberto 16 H (11.0-15.0) % Plt Count 281 (150-400) K/uL MPV 9.40 (7.40-12.00) fL Neut % (Auto) 89.4 H (48.0-80.0) % Lymph % (Auto) 3.9 L (16.0-40.0) % Reynolds % (Auto) 6.6 (0.0-15.0) % Eos % (Auto) 0.0 (0.0-7.0) % Baso % (Auto) 0.1 (0.0-1.5) % Neut # (Auto) 20.8 H (1.4-5.7) K/uL Lymph # (Auto) 0.9 (0.6-2.4) K/uL Reynolds # (Auto) 1.5 H (0.0-0.8) K/uL Eos # (Auto) 0.0 (0.0-0.7) K/uL Baso # (Auto) 0.0 (0.0-0.1) K/uL Nucleated RBC % 0.0 /100WBC Nucleated RBCs # 0 K/uL INR 1.19 Lactate 0.9 (0.20-2.00) mmol/L Sodium (136-148) mmol/L Potassium (3.5-5.1) mmol/L Chloride (98-107) mmol/L Carbon Dioxide (21.0-32.0) mmol/L BUN (7.0-18.0) mg/dL Creatinine (0.8-1.3) mg/dL Est Cr Clr Drug Dosing Estimated GFR (MDRD) ml/min Glucose (74-106) mg/dL POC Glucose (60-110) mg/dL Calcium (8.5-10.1) mg/dL Phosphorus (2.6-4.7) mg/dL Magnesium (1.8-2.4) mg/dL Total Bilirubin (0.2-1.0) mg/dL AST (15-37) IU/L ALT (14-63) IU/L Alkaline Phosphatase (46-116) U/L Troponin I (0.000-0.056) ng/mL Total Protein (6.4-8.2) g/dL Albumin (3.4-5.0) g/dL Globulin (2.6-4.0) g/dL Albumin/Globulin Ratio (0.9-1.6) Urine Color Urine Appearance Urine pH (5.0-8.0) Ur Specific Sharon (1.001-1.035) Urine Protein (NEGATIVE) mg/dL Urine Glucose (UA) (NEGATIVE) mg/dL Urine Ketones (NEGATIVE) mg/dL Urine Occult Blood (NEGATIVE) Urine Nitrite (NEGATIVE) Urine Bilirubin (NEGATIVE) Urine Urobilinogen (<2.0) EU/dL Ur Leukocyte Esterase (NEGATIVE) Urine RBC (0-2/HPF) Urine WBC (0-5/HPF) Ur Epithelial Cells (NONE-FEW) Urine Bacteria (NEGATIVE) COVID-19 (MARIA T) (NEGATIVE) 08/18/20 08/18/20 08/18/20 Range/Units 17:19 17:23 20:10 WBC (4.0-11.0) K/uL RBC (4.50-5.90) M/uL Hgb (13.0-17.0) g/dL Hct (38.0-50.0) % MCV (80.0-98.0) fL MCH (27.0-32.0) pg MCHC (31.0-37.0) g/dL RDW Std Deviation (28.0-62.0) fl RDW Coeff of Alberto (11.0-15.0) % Plt Count (150-400) K/uL MPV (7.40-12.00) fL Neut % (Auto) (48.0-80.0) % Lymph % (Auto) (16.0-40.0) % Reynolds % (Auto) (0.0-15.0) % Eos % (Auto) (0.0-7.0) % Baso % (Auto) (0.0-1.5) % Neut # (Auto) (1.4-5.7) K/uL Lymph # (Auto) (0.6-2.4) K/uL Reynolds # (Auto) (0.0-0.8) K/uL Eos # (Auto) (0.0-0.7) K/uL Baso # (Auto) (0.0-0.1) K/uL Nucleated RBC % /100WBC Nucleated RBCs # K/uL INR Lactate (0.20-2.00) mmol/L Sodium 132 L (136-148) mmol/L Potassium 4.1 (3.5-5.1) mmol/L Chloride 96 L (98-107) mmol/L Carbon Dioxide 25.6 (21.0-32.0) mmol/L BUN 51 H (7.0-18.0) mg/dL Creatinine 2.3 H (0.8-1.3) mg/dL Est Cr Clr Drug Dosing TNP Estimated GFR (MDRD) 28.5 ml/min Glucose 158 H (74-106) mg/dL POC Glucose (60-110) mg/dL Calcium 8.8 (8.5-10.1) mg/dL Phosphorus (2.6-4.7) mg/dL Magnesium (1.8-2.4) mg/dL Total Bilirubin 0.6 (0.2-1.0) mg/dL AST 64 H (15-37) IU/L ALT 45 (14-63) IU/L Alkaline Phosphatase 109 (46-116) U/L Troponin I < 0.050 (0.000-0.056) ng/mL Total Protein 6.8 (6.4-8.2) g/dL Albumin 2.6 L (3.4-5.0) g/dL Globulin 4.2 H (2.6-4.0) g/dL Albumin/Globulin Ratio 0.6 L (0.9-1.6) Urine Color YELLOW Urine Appearance CLEAR Urine pH 5.5 (5.0-8.0) Ur Specific Sharon 1.020 (1.001-1.035) Urine Protein TRACE H (NEGATIVE) mg/dL Urine Glucose (UA) NEGATIVE (NEGATIVE) mg/dL Urine Ketones NEGATIVE (NEGATIVE) mg/dL Urine Occult Blood MODERATE H (NEGATIVE) Urine Nitrite NEGATIVE (NEGATIVE) Urine Bilirubin NEGATIVE (NEGATIVE) Urine Urobilinogen 0.2 (<2.0) EU/dL Ur Leukocyte Esterase SMALL H (NEGATIVE) Urine RBC 1-2 (0-2/HPF) Urine WBC 3-4 (0-5/HPF) Ur Epithelial Cells RARE (NONE-FEW) Urine Bacteria RARE (NEGATIVE) COVID-19 (MARIA T) NEGATIVE (NEGATIVE) 06/20/20 06/20/20 06/20/20 Range/Units 05:51 05:51 08:17 WBC 18.47 H (4.0-11.0) K/uL RBC 4.24 L (4.50-5.90) M/uL Hgb 10.6 L (13.0-17.0) g/dL Hct 33.7 L (38.0-50.0) % MCV 79.5 L (80.0-98.0) fL MCH 25.0 L (27.0-32.0) pg MCHC 31.5 (31.0-37.0) g/dL RDW Std Deviation 47.5 (28.0-62.0) fl RDW Coeff of Alberto 16 H (11.0-15.0) % Plt Count 239 (150-400) K/uL MPV 9.10 (7.40-12.00) fL Neut % (Auto) 90.2 H (48.0-80.0) % Lymph % (Auto) 4.5 L (16.0-40.0) % Reynolds % (Auto) 5.1 (0.0-15.0) % Eos % (Auto) 0.1 (0.0-7.0) % Baso % (Auto) 0.1 (0.0-1.5) % Neut # (Auto) 16.7 H (1.4-5.7) K/uL Lymph # (Auto) 0.8 (0.6-2.4) K/uL Reynolds # (Auto) 0.9 H (0.0-0.8) K/uL Eos # (Auto) 0.0 (0.0-0.7) K/uL Baso # (Auto) 0.0 (0.0-0.1) K/uL Nucleated RBC % 0.0 /100WBC Nucleated RBCs # 0 K/uL INR Lactate (0.20-2.00) mmol/L Sodium 137 (136-148) mmol/L Potassium 3.6 (3.5-5.1) mmol/L Chloride 103 (98-107) mmol/L Carbon Dioxide 28.7 (21.0-32.0) mmol/L BUN 38 H (7.0-18.0) mg/dL Creatinine 1.8 H (0.8-1.3) mg/dL Est Cr Clr Drug Dosing 41.12 Estimated GFR (MDRD) 37.8 ml/min Glucose 108 H (74-106) mg/dL POC Glucose 103 (60-110) mg/dL Calcium 8.3 L (8.5-10.1) mg/dL Phosphorus 2.5 L (2.6-4.7) mg/dL Magnesium 2.1 (1.8-2.4) mg/dL Total Bilirubin (0.2-1.0) mg/dL AST (15-37) IU/L ALT (14-63) IU/L Alkaline Phosphatase (46-116) U/L Troponin I (0.000-0.056) ng/mL Total Protein (6.4-8.2) g/dL Albumin (3.4-5.0) g/dL Globulin (2.6-4.0) g/dL Albumin/Globulin Ratio (0.9-1.6) Urine Color Urine Appearance Urine pH (5.0-8.0) Ur Specific Sharon (1.001-1.035) Urine Protein (NEGATIVE) mg/dL Urine Glucose (UA) (NEGATIVE) mg/dL Urine Ketones (NEGATIVE) mg/dL Urine Occult Blood (NEGATIVE) Urine Nitrite (NEGATIVE) Urine Bilirubin (NEGATIVE) Urine Urobilinogen (<2.0) EU/dL Ur Leukocyte Esterase (NEGATIVE) Urine RBC (0-2/HPF) Urine WBC (0-5/HPF) Ur Epithelial Cells (NONE-FEW) Urine Bacteria (NEGATIVE) COVID-19 (MARIA T) (NEGATIVE) 06/20/20 06/20/20 Range/Units 09:10 11:44 WBC (4.0-11.0) K/uL RBC (4.50-5.90) M/uL Hgb (13.0-17.0) g/dL Hct (38.0-50.0) % MCV (80.0-98.0) fL MCH (27.0-32.0) pg MCHC (31.0-37.0) g/dL RDW Std Deviation (28.0-62.0) fl RDW Coeff of Alberto (11.0-15.0) % Plt Count (150-400) K/uL MPV (7.40-12.00) fL Neut % (Auto) (48.0-80.0) % Lymph % (Auto) (16.0-40.0) % Reynolds % (Auto) (0.0-15.0) % Eos % (Auto) (0.0-7.0) % Baso % (Auto) (0.0-1.5) % Neut # (Auto) (1.4-5.7) K/uL Lymph # (Auto) (0.6-2.4) K/uL Reynolds # (Auto) (0.0-0.8) K/uL Eos # (Auto) (0.0-0.7) K/uL Baso # (Auto) (0.0-0.1) K/uL Nucleated RBC % /100WBC Nucleated RBCs # K/uL INR Lactate (0.20-2.00) mmol/L Sodium (136-148) mmol/L Potassium (3.5-5.1) mmol/L Chloride (98-107) mmol/L Carbon Dioxide (21.0-32.0) mmol/L BUN (7.0-18.0) mg/dL Creatinine (0.8-1.3) mg/dL Est Cr Clr Drug Dosing Estimated GFR (MDRD) ml/min Glucose (74-106) mg/dL POC Glucose 141 H (60-110) mg/dL Calcium (8.5-10.1) mg/dL Phosphorus (2.6-4.7) mg/dL Magnesium (1.8-2.4) mg/dL Total Bilirubin (0.2-1.0) mg/dL AST (15-37) IU/L ALT (14-63) IU/L Alkaline Phosphatase (46-116) U/L Troponin I (0.000-0.056) ng/mL Total Protein (6.4-8.2) g/dL Albumin (3.4-5.0) g/dL Globulin (2.6-4.0) g/dL Albumin/Globulin Ratio (0.9-1.6) Urine Color YELLOW Urine Appearance CLEAR Urine pH 6.0 (5.0-8.0) Ur Specific Sharon 1.010 (1.001-1.035) Urine Protein NEGATIVE (NEGATIVE) mg/dL Urine Glucose (UA) NEGATIVE (NEGATIVE) mg/dL Urine Ketones NEGATIVE (NEGATIVE) mg/dL Urine Occult Blood MODERATE H (NEGATIVE) Urine Nitrite NEGATIVE (NEGATIVE) Urine Bilirubin NEGATIVE (NEGATIVE) Urine Urobilinogen 0.2 (<2.0) EU/dL Ur Leukocyte Esterase NEGATIVE (NEGATIVE) Urine RBC 2-5 (0-2/HPF) Urine WBC 0-2 (0-5/HPF) Ur Epithelial Cells NOT SEEN (NONE-FEW) Urine Bacteria NOT SEEN (NEGATIVE) COVID-19 (MARIA T) (NEGATIVE) Med Orders - Current: Current Medications Albuterol/Ipratropium (Duoneb 3.0-0.5 Mg/3 Ml) 3 ml NEB Q4HRRT PRN PRN Reason: Shortness Of Breath/wheezing Aspirin (Halfprin) 81 mg PO DAILY [facility] Last Admin: 06/20/20 08:36 Dose: 81 mg Documented by: Finasteride (Proscar) 5 mg PO DAILY [facility] Last Admin: 06/20/20 08:36 Dose: 5 mg Documented by: Heparin Sodium (Porcine) (Heparin Sodium) 5,000 units SUBCUT Q8H [facility] Last Admin: 06/20/20 05:57 Dose: 5,000 units Documented by: Vancomycin HCl 1.25 gm/ Sodium (Chloride) 250 mls @ 166.667 mls/hr IV Q12H [facility] Last Admin: 06/20/20 08:38 Dose: 166.667 mls/hr Documented by: Lactated Ringer's (Ringers, Lactated) 1,000 mls @ 100 mls/hr IV ASDIRECTED [facility] Last Admin: 06/19/20 23:14 Dose: 100 mls/hr Documented by: Meropenem 2 gm/ Sodium (Chloride) 100 mls @ 100 mls/hr IV Q12H [facility] Last Admin: 06/20/20 11:33 Dose: 100 mls/hr Documented by: Pantoprazole Sodium 40 mg/ (Sodium Chloride) 10 mls @ 300 mls/hr IV Q24H [facility] Insulin Aspart (Novolog) 0 unit SUBCUT TIDAC [facility]; Protocol Morphine Sulfate (Morphine) 1 mg IVPUSH Q4H PRN PRN Reason: Pain (severe 7-10) Stop: 06/20/20 21:06 Multivitamins/Minerals/Vitamin C (Tab-A-Kiera) 1 tab PO DAILY [facility] Last Admin: 06/20/20 08:37 Dose: 1 tab Documented by: Nystatin (Nystop) 0 gm TOP TID [facility] Last Admin: 06/20/20 05:56 Dose: 1 applic Documented by: Ondansetron HCl (Zofran) 4 mg IVPUSH Q4H PRN PRN Reason: Nausea/Vomiting Menthol [Biofreeze] 1 each TOP BID PRN PRN Reason: Pain Menthol/Camphor [ (Sarna Anti-Itch]) 1 each TOP Q12H PRN PRN Reason: RASH Polyethylene Glycol (Miralax) 17 gm PO DAILY PRN PRN Reason: Constipation Tamsulosin HCl (Flomax) 0.4 mg PO DAILY [facility] Last Admin: 06/20/20 08:37 Dose: 0.4 mg Documented by: Vancomycin HCl (Pharmacy To Dose - Vancomycin) 1 dose .XX ASDIRECTED [facility] Discontinued Medications Diphenhydramine HCl (Benadryl) 50 mg IVPUSH ONETIME ONE Stop: 06/19/20 20:44 Last Admin: 06/19/20 20:49 Dose: 50 mg Documented by: Lactated Ringer's (Ringers, Lactated) 1,000 mls @ 999 mls/hr IV .BOLUS ONE Stop: 06/19/20 19:43 Last Admin: 06/19/20 18:56 Dose: 999 mls/hr Documented by: Cefepime HCl 2 gm/ Premix 50 mls @ 100 mls/hr IV ONETIME ONE Stop: 06/19/20 19:35 Last Admin: 06/19/20 23:16 Dose: 100 mls/hr Documented by: Vancomycin HCl 2 gm/ Sodium (Chloride) 500 mls @ 333.333 mls/hr IV ONETIME ONE Stop: 06/19/20 21:29 Last Admin: 06/19/20 20:06 Dose: 333.333 mls/hr Documented by: Lactated Ringer's (Ringers, Lactated) 1,000 mls @ 999 mls/hr IV .BOLUS ONE Stop: 06/19/20 22:08 Last Admin: 06/19/20 22:03 Dose: 999 mls/hr Documented by: Cefepime HCl 1 gm/ Premix 50 mls @ 100 mls/hr IV Q8H [facility] Cefepime HCl 1 gm/ Premix 50 mls @ 100 mls/hr IV Q8H [facility] Last Admin: 06/20/20 08:37 Dose: 100 mls/hr Documented by: Lactated Ringer's (Ringers, Lactated) 500 mls @ 999 mls/hr IV .BOLUS ONE Stop: 06/20/20 10:20 Last Admin: 06/20/20 10:35 Dose: 999 mls/hr Documented by: Pantoprazole Sodium (Protonix Iv) 40 mg IV DAILY [facility] Last Admin: 06/20/20 08:36 Dose: 40 mg Documented by: Sterile Water (Sterile Water For Injection) 1.2 ml INJECT ONETIME ONE Stop: 06/19/20 20:43 Last Admin: 06/19/20 21:15 Dose: 1.2 ml Documented by: Vancomycin HCl (Pharmacy To Dose - Vancomycin) 1 dose .XX ONETIME ONE Stop: 06/19/20 19:06 Ziprasidone (Geodon) 20 mg IM ONETIME ONE Stop: 06/19/20 20:43 Last Admin: 06/19/20 20:58 Dose: 20 mg Documented by:
--- NOTE | 2020-06-20 13:34 | CONS ---
DATE OF CONSULTATION: 06/20/2020 DATE OF : 1950 PRIMARY CARE PHYSICIAN: Gibson Crisostomo MD REASON FOR CONSULTATION: Consult was called, the patient seen shortly after. Consulting question is decubitus ulcer. HISTORY OF PRESENT ILLNESS: The patient is a 69-year-old gentleman, morbidly obese, BMI of 35.1, and weight 244 pounds. Has a past medical history including UT, depression, BPH, vascular dementia, morbidly obese, chronic kidney disease. Was admitted for UTI and other treatment and noted to have a pressure ulcer and Surgery was then consulted. PAST MEDICAL HISTORY: As alluded above. PAST SURGICAL HISTORY: Colonoscopy. ALLERGIES: Please refer to nursing note for details. MEDICATIONS: Please refer to nursing note for details. FAMILY HISTORY: Noncontributory. PHYSICAL EXAMINATION: GENERAL: The patient is very comfortably lying in bed, flat on his back. HEENT: Normocephalic, atraumatic. Sclerae are anicteric. LUNGS: Clear to auscultation. HEART: Regular rate and rhythm. ABDOMEN: Soft and nondistended. No pulsating tender midline abdominal structure. SKIN: Examination on the back, the patient has a sacral decubitus ulcer right at the tip of the sacrum, 3 x 1 x 3 x 1 cm [place] with a necrotic drainage, foul smelling, and black necrosis. Upon examination with the finger, it looks like it has tunneled to the right side of the buttock, about 7 cm, with a necrotic foul-smelling drainage. Fascia is exposed. Bone is palpable. IMPRESSION: Stage IV sacral decubitus involving the fascia. Would benefit from surgical debridement and with the patient's diabetes, morbid obese, dementia, the patient is high risk for sepsis and also leukocytosis, white count 18. Recommend to transfer to a higher facility that would proceed with surgical debridement. Our surgical facility is currently down unfortunately. Thanks for the consult and care of this pleasant gentleman. LINDA / SCARLET /[id number] KIRA
[2020-06-21] MEDS ORDERED: Pantoprazole 40 MG in Sodium Chloride 0.9% 10 ML IV SCH (09:00)
== END 2020-06-20 12:32 ==
LOC: MW.ED 16:53 → MW.MS 19:19
PROVIDERS: ADMIT Student in an Organized Health Care Education/Training Program; ATTEND Student in an Organized Health Care Education/Training Program
DX: A41.9 Sepsis, unspecified organism (principal); R65.20 Severe sepsis without septic shock; N17.9 Acute kidney failure, unspecified; N12 Tubulo-interstitial nephritis, not specified as acute or chronic; L89.153 Pressure ulcer of sacral region, stage 3; L03.317 Cellulitis of buttock; I25.10 Atherosclerotic heart disease of native coronary artery without angina pectoris; F32.9 Major depressive disorder, single episode, unspecified; E11.22 Type 2 diabetes mellitus with diabetic chronic kidney disease; B37.89 Other sites of candidiasis; N18.9 Chronic kidney disease, unspecified; E66.9 Obesity, unspecified; Z97.8 Presence of other specified devices; I12.9 Hypertensive chronic kidney disease with stage 1 through stage 4 chronic kidney disease, or unspecified chronic kidney disease; I25.2 Old myocardial infarction; Z20.828 Contact with and (suspected) exposure to other viral communicable diseases; N40.1 Benign prostatic hyperplasia with lower urinary tract symptoms; N13.8 Other obstructive and reflux uropathy; F01.50 Vascular dementia, unspecified severity, without behavioral disturbance, psychotic disturbance, mood disturbance, and anxiety; Z79.899 Other long term (current) drug therapy; Z68.35 Body mass index [BMI] 35.0-35.9, adult
CPT/HCPCS: 36415; 70450; 71045; 71250; 74176; 76775; 80048; 80053; 81001; 82962; 83605; 83735; 84100; 84484; 85025; 85610; 87040; 87070; 87077; 87086; 87088; 87186; 93005; 96361; 96365; 96366; 96367; 96372; 96375; 96376; 99285; A9270; C9113; G0378; J0692; J1200; J1644; J2185; J3370; J3486; J7040; J7050; J7120; U0002; 93010; 99284; J1815-GY

== ENCOUNTER 2020-10-01 01:28 | Inpatient (IN) | payer MEDICARE, MEDICAID ==
[2020-10-01] MEDS ORDERED: Sodium Chloride 0.9% 2.5 ML Syringe FLUSH PRN (01:30)
[2020-10-01] MEDS ORDERED: Sodium Chloride 0.9% 10 ML Syringe FLUSH PRN (01:30)
[2020-10-01] MEDS ORDERED: Lactated Ringers 1,000 ML IV ONE ×3 (01:34→06:22)
--- NOTE | 2020-10-01 01:57 | EDM.PDOC ---
ED HPI GENERAL MEDICAL PROBLEM - General Chief Complaint: Genitourinary Problem Stated Complaint: ISSUES WITH URINE Time Seen by Provider: 10/01/20 01:30 - History of Present Illness INITIAL COMMENTS - FREE TEXT/NARRATIVE: 69-year-old male who lives at a [facility] with chronic indwelling Aquino who is DNR per official nursing documentation who is presenting with tachycardia hypotension discolored urine and hypoxia. According to EMS report patient developed vomiting this evening was found to be hypoxic with a room air sat of 84 placed on 6 L and improved to the mid 90s they noted hypotension and tachycardia as well. Patient on direct questioning denies complaint he denies abdominal pain nausea vomiting fever or other symptoms. - Related Data Allergies Allergy/AdvReac Type Severity Reaction Status Date / Time No Known Allergies Allergy Verified 10/01/20 01:31 Home Meds: Home Meds Finasteride 5 mg PO DAILY 08/04/16 [History] Acetaminophen [Acetaminophen Extra Strength] 1 tab PO TID PRN 05/27/19 [History] Aspirin [Halfprin] 81 mg PO DAILY 05/27/19 [History] Furosemide [Lasix] 20 mg PO DAILY 05/27/19 [History] Linagliptin [Tradjenta] 5 mg PO DAILY 05/27/19 [History] Menthol [Biofreeze] 1 applic TOP BID PRN 05/27/19 [History] Multivitamin [Multivitamins] 1 tab PO DAILY 05/27/19 [History] Tamsulosin HCl [Flomax] 0.4 mg PO DAILY 05/27/19 [History] Clindamycin HCl 300 mg PO TID 06/19/20 [History] Gentamicin/Normal Saline [Gentamicin 80 MG/NS 100 ML Piggyback] 80 mg IV MOWEFR 06/19/20 [History] Menthol/Camphor [Sarna Anti-Itch] 1 applic TOP Q12H PRN 06/19/20 [History] Nystatin [Nystop] 1 gm TOP TID 06/19/20 [History] polyethylene glycoL 3350 [MiraLAX] 17 gm PO DAILY PRN 06/19/20 [History] Past Medical History HEENT History: Reports: Hard of Hearing, Other (See Below) Other HEENT History: top & bottom denture, dental caries Cardiovascular History: Reports: High Cholesterol, Hypertension, NE, Other (See Below) Other Cardiovascular History: atherosclerotic heart disease Respiratory History: Reports: None Gastrointestinal History: Reports: Colon Polyp, Diverticulosis Genitourinary History: Reports: BPH, Renal Disease, Urinary Incontinence, UTI, Recurrent, Other (See Below) Other Genitourinary History: obstructive and reflux uropathy, fitting and adjustment of urinary device, CKD Musculoskeletal History: Reports: Osteoarthritis, Other (See Below) Other Musculoskeletal History: Muscle weakness, difficulty walking, other abnormalities of gait and mobility, pain in right knee, lack of coordination Neurological History: Reports: Other (See Below) Other Neuro History: dementia Psychiatric History: Reports: Other (See Below) Other Psychiatric History: Personality disorder Endocrine/Metabolic History: Reports: Diabetes, Type II, Obesity/BMI 30+ Hematologic History: Reports: None Immunologic History: Reports: None Oncologic (Cancer) History: Reports: None Dermatologic History: Reports: Other (See Below) Other Dermatologic History: pressure ulcer of right buttock, hx of neoplasm of skin, pressure ulcer of lefr buttock, sacral region - Infectious Disease History Infectious Disease History: Reports: None - Past Surgical History Head Surgeries/Procedures: Reports: None HEENT Surgical History: Reports: Oral Surgery Cardiovascular Surgical History: Reports: None Respiratory Surgical History: Reports: None GI Surgical History: Reports: Colonoscopy Male Surgical History: Reports: None Endocrine Surgical History: Reports: None Neurological Surgical History: Reports: None Musculoskeletal Surgical History: Reports: None Oncologic Surgical History: Reports: None Dermatological Surgical History: Reports: None - History Comment History Comment: etoh "3x a month" Social & Family History - Family History Family Medical History: Unobtainable - Caffeine Use Caffeine Use: Reports: None - Recreational Drug Use Recreational Drug Use: No ED ROS GENERAL - Review of Systems Review Of Systems: See Below Free Text/Narrative/Comment: General: No fever. Skin: No rash. Eyes: No vision problems. ENT: No sore throat. Neck: No neck stiffness. Respiratory: No shortness of breath. Cardiac: No chest pain. Gastrointestinal: No nausea, vomiting or abdominal pain. Urinary: No dysuria. Musculoskeletal: No myalgias/arthralgias. Neurologic: No headache. Reliability is suspect given reported underlying dementia. ED EXAM, GENERAL - Physical Exam Exam: See Below Free Text/Narrative:: General Appearance: No acute distress, appears comfortable Skin: Stage IV sacral decubitus ulcer HEENT: Normocephalic/atraumatic, sclera anicteric, mucous membranes dry Neck: Normal range of motion Chest and Lungs: Bilateral breath sounds, clear to auscultation Cardiovascular: Tachycardic rate, regular rhythm Abdomen: Soft, non-tender, profoundly discolored urine in Aquino catheter bag, normal appearing succus in ostomy Back: Normal Musculoskeletal: No edema or tenderness Neurologic: Awake, alert, no obvious deficits, moving all extremities Psychiatric: Appropriate, cooperative #1 Interpretation EKG Date: 10/01/20 Time: 01:59 EKG Interpretation Comments: EKG demonstrates sinus rhythm significant artifact but no clear acute ischemia Course - Vital Signs Last Recorded V/S: Last Vital Signs Temp 99.1 F 10/01/20 02:58 Pulse 103 H 10/01/20 03:53 Resp 24 H 10/01/20 03:53 BP 91/61 10/01/20 03:53 Pulse Ox 96 10/01/20 03:53 - Orders/Labs/Meds Orders: Active Orders 24 hr Category Date Time Status EKG Documentation Completion [RC] STAT Care 10/01/20 01:31 Active CULTURE BLOOD [BC] Stat Lab 10/01/20 01:30 Received CULTURE BLOOD [BC] Stat Lab 10/01/20 02:05 Received URINALYSIS W/MICROSCOPIC [UA W/MICROSCOPIC] [URIN] Stat Lab 10/01/20 01:31 Ordered Sodium Chloride 0.9% [Saline Flush] Med 10/01/20 01:30 Active 10 ml FLUSH ASDIRECTED PRN Sodium Chloride 0.9% [Saline Flush] Med 10/01/20 01:30 Active 2.5 ml FLUSH ASDIRECTED PRN Blood Culture x2 Reflex Set [OM.PC] Stat Oth 10/01/20 01:31 Ordered Saline Lock Insert [OM.PC] Stat Oth 10/01/20 01:30 Ordered Medication Orders Sodium Chloride (Saline Flush) 10 ml FLUSH ASDIRECTED PRN PRN Reason: Keep Vein Open Last Admin: 10/01/20 01:41 Dose: 10 ml Documented by: ADILSON Sodium Chloride (Saline Flush) 2.5 ml FLUSH ASDIRECTED PRN PRN Reason: Keep Vein Open Last Admin: 10/01/20 01:41 Dose: 2.5 ml Documented by: ADILSON Labs: Laboratory Tests 10/01/20 10/01/20 10/01/20 Range/Units 01:30 01:30 01:30 WBC 18.65 H (4.0-11.0) K/uL RBC 6.12 H (4.50-5.90) M/uL Hgb 15.0 (13.0-17.0) g/dL Hct 45.5 (38.0-50.0) % MCV 74.3 L (80.0-98.0) fL MCH 24.5 L (27.0-32.0) pg MCHC 33.0 (31.0-37.0) g/dL RDW Std Deviation 42.7 (28.0-62.0) fl RDW Coeff of Alberto 17 H (11.0-15.0) % Plt Count 344 (150-400) K/uL MPV 9.50 (7.40-12.00) fL Neut % (Auto) 95.2 H (48.0-80.0) % Lymph % (Auto) 1.4 L (16.0-40.0) % Grayson % (Auto) 3.3 (0.0-15.0) % Eos % (Auto) 0.0 (0.0-7.0) % Baso % (Auto) 0.1 (0.0-1.5) % Neut # (Auto) 17.8 H (1.4-5.7) K/uL Lymph # (Auto) 0.3 L (0.6-2.4) K/uL Grayson # (Auto) 0.6 (0.0-0.8) K/uL Eos # (Auto) 0.0 (0.0-0.7) K/uL Baso # (Auto) 0.0 (0.0-0.1) K/uL Lactate 3.1 H* (0.20-2.00) mmol/L Sodium 135 L (136-148) mmol/L Potassium 5.5 H (3.5-5.1) mmol/L Chloride 100 (98-107) mmol/L Carbon Dioxide 25.4 (21.0-32.0) mmol/L BUN 47 H (7.0-18.0) mg/dL Creatinine 4.8 H (0.8-1.3) mg/dL Est Cr Clr Drug Dosing 14.93 mL/min Estimated GFR (MDRD) 12.2 ml/min Glucose 280 H (74-106) mg/dL Calcium 8.9 (8.5-10.1) mg/dL Total Bilirubin 1.4 H (0.2-1.0) mg/dL AST 15 (15-37) IU/L ALT 24 (14-63) IU/L Alkaline Phosphatase 119 H (46-116) U/L Total Protein 7.0 (6.4-8.2) g/dL Albumin 3.0 L (3.4-5.0) g/dL Globulin 4.0 (2.6-4.0) g/dL Albumin/Globulin Ratio 0.8 L (0.9-1.6) SARS-CoV-2 RNA (MARIA T) (NEGATIVE) 10/01/20 10/01/20 Range/Units 01:30 04:30 WBC (4.0-11.0) K/uL RBC (4.50-5.90) M/uL Hgb (13.0-17.0) g/dL Hct (38.0-50.0) % MCV (80.0-98.0) fL MCH (27.0-32.0) pg MCHC (31.0-37.0) g/dL RDW Std Deviation (28.0-62.0) fl RDW Coeff of Alberto (11.0-15.0) % Plt Count (150-400) K/uL MPV (7.40-12.00) fL Neut % (Auto) (48.0-80.0) % Lymph % (Auto) (16.0-40.0) % Grayson % (Auto) (0.0-15.0) % Eos % (Auto) (0.0-7.0) % Baso % (Auto) (0.0-1.5) % Neut # (Auto) (1.4-5.7) K/uL Lymph # (Auto) (0.6-2.4) K/uL Grayson # (Auto) (0.0-0.8) K/uL Eos # (Auto) (0.0-0.7) K/uL Baso # (Auto) (0.0-0.1) K/uL Lactate 2.8 H* (0.20-2.00) mmol/L Sodium (136-148) mmol/L Potassium (3.5-5.1) mmol/L Chloride (98-107) mmol/L Carbon Dioxide (21.0-32.0) mmol/L BUN (7.0-18.0) mg/dL Creatinine (0.8-1.3) mg/dL Est Cr Clr Drug Dosing mL/min Estimated GFR (MDRD) ml/min Glucose (74-106) mg/dL Calcium (8.5-10.1) mg/dL Total Bilirubin (0.2-1.0) mg/dL AST (15-37) IU/L ALT (14-63) IU/L Alkaline Phosphatase (46-116) U/L Total Protein (6.4-8.2) g/dL Albumin (3.4-5.0) g/dL Globulin (2.6-4.0) g/dL Albumin/Globulin Ratio (0.9-1.6) SARS-CoV-2 RNA (MARIA T) NEGATIVE (NEGATIVE) Meds: Medications Generic Name Dose Route Start Last Admin Trade Name Freq PRN Reason Stop Dose Admin Sodium Chloride 10 ml 10/01/20 01:30 10/01/20 01:41 Saline Flush FLUSH 10 ml ASDIRECTED PRN Administration Keep Vein Open Sodium Chloride 2.5 ml 10/01/20 01:30 10/01/20 01:41 Saline Flush FLUSH 2.5 ml ASDIRECTED PRN Administration Keep Vein Open Discontinued Medications Generic Name Dose Route Start Last Admin Trade Name Freq PRN Reason Stop Dose Admin Lactated Ringer's 1,000 mls @ 999 mls/hr 10/01/20 01:34 10/01/20 01:43 Ringers, Lactated IV 10/01/20 02:34 999 mls/hr .BOLUS ONE Administration Cefepime HCl 2 gm/ Premix 50 mls @ 100 mls/hr 10/01/20 01:54 10/01/20 03:43 IV 10/01/20 02:23 100 mls/hr ONETIME ONE Administration Lactated Ringer's 1,000 mls @ 999 mls/hr 10/01/20 02:19 10/01/20 02:54 Ringers, Lactated IV 10/01/20 03:19 999 mls/hr .BOLUS ONE Administration Departure - Departure Time of Disposition: 03:50 Disposition: Admitted As Inpatient 68 Condition: Fair Clinical Impression: Severe sepsis - Discharge Information *PRESCRIPTION DRUG MONITORING PROGRAM REVIEWED*: Not Applicable *COPY OF PRESCRIPTION DRUG MONITORING REPORT IN PATIENT JOHANNA: Not Applicable Referrals: Gibson Crisostomo MD [Primary Care Provider] - Forms: ED Department Discharge Critical Care Note - Critical Care Note Total Time (mins): 50 Comments: Patient presents with signs and symptoms that are concerning for severe sepsis he required immediate resuscitation with IV fluid I had to stop seeing other patients and turned to him. Sepsis Event Note (ED) - Evaluation Sepsis Screening Result: Possible Severe Sepsis Risk - Focused Exam Vital Signs: Vital Signs Temp Temp Pulse Resp BP Pulse Ox 10/01/20 03:53 103 H 24 H 91/61 96 10/01/20 02:58 99.1 F 110 H 30 H 97/45 L 93 L 10/01/20 01:59 112 H 20 101/58 L 96 10/01/20 01:32 99.4 F 98.1 F 109 H 28 H 80/38 L 94 L - My Orders Last 24 Hours: My Active Orders 10/01/20 01:30 CULTURE BLOOD [BC] Stat Sodium Chloride 0.9% [Saline Flush] 10 ml FLUSH ASDIRECTED PRN Sodium Chloride 0.9% [Saline Flush] 2.5 ml FLUSH ASDIRECTED PRN Saline Lock Insert [OM.PC] Stat 10/01/20 01:31 EKG Documentation Completion [RC] STAT URINALYSIS W/MICROSCOPIC [UA W/MICROSCOPIC] [URIN] Stat Blood Culture x2 Reflex Set [OM.PC] Stat 10/01/20 02:05 CULTURE BLOOD [BC] Stat - Assessment/Plan Last 24 Hours: My Active Orders 10/01/20 01:30 CULTURE BLOOD [BC] Stat Sodium Chloride 0.9% [Saline Flush] 10 ml FLUSH ASDIRECTED PRN Sodium Chloride 0.9% [Saline Flush] 2.5 ml FLUSH ASDIRECTED PRN Saline Lock Insert [OM.PC] Stat 10/01/20 01:31 EKG Documentation Completion [RC] STAT URINALYSIS W/MICROSCOPIC [UA W/MICROSCOPIC] [URIN] Stat Blood Culture x2 Reflex Set [OM.PC] Stat 10/01/20 02:05 CULTURE BLOOD [BC] Stat Assessment:: 69-year-old male presenting with signs and symptoms that are concerning for severe sepsis resuscitation with lactated Ringer's has been started 2 blood cultures initial lactate is elevated at just over 3. Patient's oxygenation is good on 6 L at this time. Given the clearly discolored urine I would favor UTI. Now that relevant samples of been obtained cefepime is been ordered. Patient will require admission level of care pending response to initial resuscitation. EKG without signs of acute ischemia. Covid swab obtained but my suspicion for Covid is quite low. Will give 30ml/kg based on ideal body weight of 155lbs. This equates to 2.1L and a 2nd liter of LR was ordered. Patient with a marked leukocytosis as expected he also has a significant acute on chronic renal insufficiency with mild hyperkalemia as well. As soon as urinalysis can be collected cefepime will be given for severe sepsis with suspected UTI. 0335: The patient has minimal very thick urine output. We are still unable to collect a sample. However, I do not wish to further delay abx. Will proceed with abx and admission. 0345: Pt discussed in full with Dr. Lim. Agrees with proceeding with abx. Will finish initial bolus and repeat LA. If BP stabilizes or improves and LA clears then would plan for med surg floor with tele. If not then would plan for ICU. 0440: Pt has completed his fluid bolus. LA improved to 2.8, SBP remains stable in the low 2 mid 90s. HR improved to the 90s as well. Given this will start on Med/Surg with tele.
[2020-10-01 02:05] LABS: CARBON DIOXIDE,CO2 25.4 mmol/L (21.0-32.0); POTASSIUM,K 5.5 mmol/L (3.5-5.1)
--- NOTE | 2020-10-01 02:17 | CR ---
Indication: Fever Technique: Chest 1 view Comparison: Chest x-ray 06/19/2020 Findings/Impression: Cardiovascular and mediastinum: Heart size and vasculature are normal in caliber and appearance. Lungs and pleural space: Trace left pleural effusion with discoid atelectasis left lung base. Bones and soft tissues: No acute findings. Dictated by Jarrett Doan MD @ Oct 01 2020 2:14AM Signed by Dr. Jarrett Doan @ Oct 01 2020 2:15AM
[2020-10-01] MEDS: Cefepime 2 GM in Premix Bag 1 BAG IV ONE ×2 (02:56→03:43)
[2020-10-01] MEDS ORDERED: Calcium Gluconate 10% 1 GM/10 ML SDV IVPUSH ONE (06:13)
[2020-10-01] MEDS ORDERED: 50% Dextrose in Water 50 ML Syringe IV PRN (06:17)
[2020-10-01] MEDS ORDERED: Glucagon,Human Recombinant 1 MG Vial IM PRN (06:17)
[2020-10-01] MEDS ORDERED: Insulin Regular, Human 100 Units/ML 10 ML Vial IVPUSH ONE (06:17)
[2020-10-01] MEDS ORDERED: 50% Dextrose in Water 50 ML Syringe ONE (06:35)
[2020-10-01] MEDS ORDERED: Calcium Gluconate 10% 1 GM/10 ML SDV ONE (06:35)
[2020-10-01] MEDS ORDERED: Lactated Ringers 500 ML IV ONE (06:42)
[2020-10-01] MEDS ORDERED: Vancomycin/Water for INJ (PEG) 2 GM in Premix Bag 1 BAG IV ONE (07:00)
[2020-10-01] MEDS: Heparin Sodium 5,000 Units/ML Vial SUBCUT SCH ×2 (07:04→18:20)
--- NOTE | 2020-10-01 07:09 | PCM.HP.2 ---
<NancyBlas - Last Filed: 10/01/20 18:16> H&P History of Present Illness - General Date of Service: 10/01/20 Admit Problem/Dx: Admission Diagnosis/Problem Admission Diagnosis/Problem Severe sepsis - History of Present Illness Initial Comments - Free Text/Narative: 69-year-old male admitted for Severe sepsis secondary to a UTI and hyperkalemia, K+ 5.5. On admission patient was tachycardic, tachypneic, hypotensive with fluctuations in MAP's (58, 78, 64). Patient given 4.5L of LR, started on IV antibiotics. Patients kidney functions were poor, BUN 47, Creatinine 4.8 with poor urine output. Patient PMH includes HTN, CKD, UTI's, diabetes, chronic indwelling knutson. Patient presented to the ED with tachycardia hypotension discolored urine, hypoxia and severe vomiting yesterday evening. Patient denied fever, chills, nausea, vomiting, SOB, chest pain. Patient states that he feels fine and wants to go home. Patients sister was contacted. Patient stated that his sister helps with all of his medical decisions. Sister informed of the severity of patients condition. Patient is DNR/DNI and sister states that she does not want us to provide additional support such as central line and pressor medications. - Related Data Allergies/Adverse Reactions: Allergies Allergy/AdvReac Type Severity Reaction Status Date / Time No Known Allergies Allergy Verified 10/01/20 01:31 Home Medications: Home Meds Finasteride 5 mg PO DAILY 08/04/16 [History] Aspirin [Halfprin] 81 mg PO DAILY 05/27/19 [History] Furosemide [Lasix] 20 mg PO DAILY 05/27/19 [History] Multivitamin [Multivitamins] 1 tab PO DAILY 05/27/19 [History] Tamsulosin HCl [Flomax] 0.4 mg PO DAILY 05/27/19 [History] Menthol [Biofreeze] 1 applic TOP BID 10/04/20 [History] Past Medical History HEENT History: Reports: Hard of Hearing, Other (See Below) Other HEENT History: top & bottom denture, dental caries Cardiovascular History: Reports: High Cholesterol, Hypertension, [place], Other (See Below) Other Cardiovascular History: atherosclerotic heart disease Respiratory History: Reports: None Gastrointestinal History: Reports: Colon Polyp, Diverticulosis Genitourinary History: Reports: BPH, Renal Disease, Urinary Incontinence, UTI, Recurrent, Other (See Below) Other Genitourinary History: obstructive and reflux uropathy, fitting and adjustment of urinary device, CKD Musculoskeletal History: Reports: Osteoarthritis, Other (See Below) Other Musculoskeletal History: Muscle weakness, difficulty walking, other abnormalities of gait and mobility, pain in right knee, lack of coordination Neurological History: Reports: Other (See Below) Other Neuro History: dementia Psychiatric History: Reports: Other (See Below) Other Psychiatric History: Personality disorder Endocrine/Metabolic History: Reports: Diabetes, Type II, Obesity/BMI 30+ Hematologic History: Reports: None Immunologic History: Reports: None Oncologic (Cancer) History: Reports: None Dermatologic History: Reports: Other (See Below) Other Dermatologic History: pressure ulcer of right buttock, hx of neoplasm of skin, pressure ulcer of lefr buttock, sacral region - Infectious Disease History Infectious Disease History: Reports: None - Past Surgical History Head Surgeries/Procedures: Reports: None HEENT Surgical History: Reports: Oral Surgery Cardiovascular Surgical History: Reports: None Respiratory Surgical History: Reports: None GI Surgical History: Reports: Colonoscopy Male Surgical History: Reports: None Endocrine Surgical History: Reports: None Neurological Surgical History: Reports: None Musculoskeletal Surgical History: Reports: None Oncologic Surgical History: Reports: None Dermatological Surgical History: Reports: None - History Comment History Comment: etoh "3x a month" Social & Family History - Family History Family Medical History: Unobtainable - Caffeine Use Caffeine Use: Reports: None - Recreational Drug Use Recreational Drug Use: No H&P Review of Systems - Review of Systems: Review Of Systems: See Below General: Denies: Fever, Chills Pulmonary: Denies: Shortness of Breath Cardiovascular: Denies: Chest Pain, Palpitations Gastrointestinal: Denies: Abdominal Pain, Nausea, Vomiting Neurological: Denies: Dizziness, Headache Exam - Exam Exam: See Below - Vital Signs Vital Signs: Last Vital Signs Temp 99.1 F 10/01/20 04:38 Pulse 110 H 10/01/20 04:38 Resp 30 H 10/01/20 04:38 BP 97/62 10/01/20 04:38 Pulse Ox 96 10/01/20 04:38 Weight: 113.398 kg - Exam Quality Assessment: Supplemental Oxygen General: Alert Lungs: Normal Respiratory Effort, Crackles Cardiovascular: Regular Rate, Regular Rhythm GI/Abdominal Exam: Normal Bowel Sounds, Soft, Non-Tender Extremities: No Pedal Edema Neuro Extensive - Mental Status: Alert - Patient Data Lab Results Last 24 hrs: Laboratory Results - last 24 hr 10/01/20 10/01/20 10/01/20 Range/Units 01:30 01:30 01:30 WBC 18.65 H (4.0-11.0) K/uL RBC 6.12 H (4.50-5.90) M/uL Hgb 15.0 (13.0-17.0) g/dL Hct 45.5 (38.0-50.0) % MCV 74.3 L (80.0-98.0) fL MCH 24.5 L (27.0-32.0) pg MCHC 33.0 (31.0-37.0) g/dL RDW Std Deviation 42.7 (28.0-62.0) fl RDW Coeff of Alberto 17 H (11.0-15.0) % Plt Count 344 (150-400) K/uL MPV 9.50 (7.40-12.00) fL Neut % (Auto) 95.2 H (48.0-80.0) % Lymph % (Auto) 1.4 L (16.0-40.0) % [place] % (Auto) 3.3 (0.0-15.0) % Eos % (Auto) 0.0 (0.0-7.0) % Baso % (Auto) 0.1 (0.0-1.5) % Neut # (Auto) 17.8 H (1.4-5.7) K/uL Lymph # (Auto) 0.3 L (0.6-2.4) K/uL [place] # (Auto) 0.6 (0.0-0.8) K/uL Eos # (Auto) 0.0 (0.0-0.7) K/uL Baso # (Auto) 0.0 (0.0-0.1) K/uL Lactate 3.1 H* (0.20-2.00) mmol/L Sodium 135 L (136-148) mmol/L Potassium 5.5 H (3.5-5.1) mmol/L Chloride 100 (98-107) mmol/L Carbon Dioxide 25.4 (21.0-32.0) mmol/L BUN 47 H (7.0-18.0) mg/dL Creatinine 4.8 H (0.8-1.3) mg/dL Est Cr Clr Drug Dosing 14.93 mL/min Estimated GFR (MDRD) 12.2 ml/min Glucose 280 H (74-106) mg/dL POC Glucose (60-110) mg/dL Calcium 8.9 (8.5-10.1) mg/dL Total Bilirubin 1.4 H (0.2-1.0) mg/dL AST 15 (15-37) IU/L ALT 24 (14-63) IU/L Alkaline Phosphatase 119 H (46-116) U/L Total Protein 7.0 (6.4-8.2) g/dL Albumin 3.0 L (3.4-5.0) g/dL Globulin 4.0 (2.6-4.0) g/dL Albumin/Globulin Ratio 0.8 L (0.9-1.6) SARS-CoV-2 RNA (MARIA T) (NEGATIVE) 10/01/20 10/01/20 10/01/20 Range/Units 01:30 04:30 06:55 WBC (4.0-11.0) K/uL RBC (4.50-5.90) M/uL Hgb (13.0-17.0) g/dL Hct (38.0-50.0) % MCV (80.0-98.0) fL MCH (27.0-32.0) pg MCHC (31.0-37.0) g/dL RDW Std Deviation (28.0-62.0) fl RDW Coeff of Alberto (11.0-15.0) % Plt Count (150-400) K/uL MPV (7.40-12.00) fL Neut % (Auto) (48.0-80.0) % Lymph % (Auto) (16.0-40.0) % [place] % (Auto) (0.0-15.0) % Eos % (Auto) (0.0-7.0) % Baso % (Auto) (0.0-1.5) % Neut # (Auto) (1.4-5.7) K/uL Lymph # (Auto) (0.6-2.4) K/uL [place] # (Auto) (0.0-0.8) K/uL Eos # (Auto) (0.0-0.7) K/uL Baso # (Auto) (0.0-0.1) K/uL Lactate 2.8 H* (0.20-2.00) mmol/L Sodium (136-148) mmol/L Potassium (3.5-5.1) mmol/L Chloride (98-107) mmol/L Carbon Dioxide (21.0-32.0) mmol/L BUN (7.0-18.0) mg/dL Creatinine (0.8-1.3) mg/dL Est Cr Clr Drug Dosing mL/min Estimated GFR (MDRD) ml/min Glucose (74-106) mg/dL POC Glucose 215 H (60-110) mg/dL Calcium (8.5-10.1) mg/dL Total Bilirubin (0.2-1.0) mg/dL AST (15-37) IU/L ALT (14-63) IU/L Alkaline Phosphatase (46-116) U/L Total Protein (6.4-8.2) g/dL Albumin (3.4-5.0) g/dL Globulin (2.6-4.0) g/dL Albumin/Globulin Ratio (0.9-1.6) SARS-CoV-2 RNA (MARIA T) NEGATIVE (NEGATIVE) Result Diagrams: 10/01/20 01:30 10/01/20 09:09 Sepsis Event Note - Evaluation Sepsis Screening Result: Possible Severe Sepsis Risk - Focused Exam Vital Signs: Vital Signs Temp Temp Pulse Resp BP Pulse Ox 10/01/20 04:38 99.1 F 110 H 30 H 97/62 96 10/01/20 03:53 103 H 24 H 91/61 96 10/01/20 02:58 99.1 F 110 H 30 H 97/45 L 93 L 10/01/20 01:59 112 H 20 101/58 L 96 10/01/20 01:32 99.4 F 98.1 F 109 H 28 H 80/38 L 94 L Problem List Initiated/Reviewed/Updated: Yes Orders Last 24hrs: Active Orders 24 hr Category Date Time Status Patient Status [ADT] Routine ADT 10/01/20 04:41 Active Transfer Patient (Change bed) [ADT] Routine ADT 10/01/20 06:29 Ordered Accu Check [Blood Glucose Check, Bedside] [RC] Q6H Care 10/01/20 07:00 Active Antiembolic Devices [RC] PER UNIT ROUTINE Care 10/01/20 06:28 Active EKG Documentation Completion [RC] STAT Care 10/01/20 01:31 Active Oxygen Therapy [RC] ASDIRECTED Care 10/01/20 06:25 Active RT Aerosol Therapy [RC] ASDIRECTED Care 10/01/20 06:24 Active Vital Signs [RC] Q1H Care 10/01/20 07:00 Active NPO Now [Nothing per Oral Now Diet] [DIET] Diet 10/01/20 Breakfast Active CULTURE BLOOD [BC] Stat Lab 10/01/20 01:30 Received CULTURE BLOOD [BC] Stat Lab 10/01/20 02:05 Received LACTATE WITH REFLEX [BG] Stat Lab 10/01/20 08:30 Ordered URINALYSIS W/MICROSCOPIC [UA W/MICROSCOPIC] [URIN] Stat Lab 10/01/20 01:31 Ordered VANCOMYCIN RANDOM [CHEM] Timed Lab 10/03/20 09:00 Ordered Albuterol/Ipratropium [DuoNeb 3.0-0.5 MG/3 ML] Med 10/01/20 06:24 Active 3 ml NEB Q4HRRT PRN Dextrose 50% in Water Med 10/01/20 06:17 Active 50 ml IV ASDIRECTED PRN Glucagon,Human Recombinant [GlucaGen] Med 10/01/20 06:17 Active 1 mg IM ASDIRECTED PRN Heparin Sodium Med 10/01/20 06:30 Active 5,000 units SUBCUT Q12H Lactated Ringers [Ringers, Lactated] 1,000 ml Med 10/01/20 06:22 Active IV .BOLUS Lactated Ringers [Ringers, Lactated] 1,000 ml Med 10/01/20 06:45 Active IV ASDIRECTED Lactated Ringers [Ringers, Lactated] 500 ml Med 10/01/20 06:42 Active IV .BOLUS Pantoprazole [ProTONIX IV] 40 mg Med 10/01/20 09:00 Active Sodium Chloride 0.9% [Normal Saline] 10 ml IV BID Pharmacy to Dose - Vancomycin Med 10/01/20 06:30 Pending 1 dose .XX ASDIRECTED Sodium Chloride 0.9% [Saline Flush] Med 10/01/20 01:30 Active 10 ml FLUSH ASDIRECTED PRN Sodium Chloride 0.9% [Saline Flush] Med 10/01/20 01:30 Active 2.5 ml FLUSH ASDIRECTED PRN Vancomycin/Water for INJ (PEG) [Vancomycin 2 GM/400 ML Med 10/01/20 07:00 Active Premix] 2 gm Premix Bag 1 bag IV NOW Blood Culture x2 Reflex Set [OM.PC] Stat Oth 10/01/20 01:31 Ordered SCD [Sequential Compression Device] [OM.PC] Routine Oth 10/01/20 06:28 Ordered Saline Lock Insert [OM.PC] Stat Oth 10/01/20 01:30 Ordered Medication Orders Albuterol/Ipratropium (Duoneb 3.0-0.5 Mg/3 Ml) 3 ml NEB Q4HRRT PRN PRN Reason: SOB and Wheezes Dextrose/Water (Dextrose 50% In Water) 50 ml IV ASDIRECTED PRN PRN Reason: hyperkalemia Last Admin: 10/01/20 06:47 Dose: 50 ml Documented by: JESSICA Glucagon (Glucagen) 1 mg IM ASDIRECTED PRN PRN Reason: Hypoglycemia Heparin Sodium (Porcine) (Heparin Sodium) 5,000 units SUBCUT Q12H FIDELIA Last Admin: 10/01/20 07:04 Dose: 5,000 units Documented by: JESSICA Lactated Ringer's (Ringers, Lactated) 1,000 mls @ 999 mls/hr IV .BOLUS ONE Stop: 10/01/20 07:22 Last Admin: 10/01/20 06:48 Dose: 999 mls/hr Documented by: JESSICA Pantoprazole Sodium 40 mg/ (Sodium Chloride) 10 mls @ 300 mls/hr IV BID FIDELIA Vancomycin HCl 2 gm/ Premix 400 mls @ 200 mls/hr IV NOW ONE Stop: 10/01/20 08:59 Lactated Ringer's (Ringers, Lactated) 500 mls @ 999 mls/hr IV .BOLUS ONE Stop: 10/01/20 07:12 Lactated Ringer's (Ringers, Lactated) 1,000 mls @ 125 mls/hr IV ASDIRECTED FIDELIA Sodium Chloride (Saline Flush) 10 ml FLUSH ASDIRECTED PRN PRN Reason: Keep Vein Open Last Admin: 10/01/20 01:41 Dose: 10 ml Documented by: [id number] Sodium Chloride (Saline Flush) 2.5 ml FLUSH ASDIRECTED PRN PRN Reason: Keep Vein Open Last Admin: 10/01/20 01:41 Dose: 2.5 ml Documented by: [id number] Vancomycin HCl (Pharmacy To Dose - Vancomycin) 1 dose .XX ASDIRECTED [facility] Assessment/Plan Comment:: Sepsis/UTI-LR 4.5L, Vancomycin, Cefepime, hemodynamic monitoring, fluids as needed, supplemental O2 as needed, blood cultures, I&O's, heparin 5000 units Q12, pantoprazole 40 mg. Hyperkalemia- Insulin with D50, Recheck BMP Will not escalate to pressors if needed, per family (sister). <Sena Lim - Last Filed: 10/07/20 18:18> H&P History of Present Illness - General Admit Problem/Dx: Admission Diagnosis/Problem Admission Diagnosis/Problem Severe sepsis Exam - Vital Signs Vital Signs: Last Vital Signs Temp 37.2 C 10/05/20 00:00 Pulse 82 10/05/20 00:00 Resp 20 10/05/20 00:00 BP 153/86 H 10/05/20 00:00 Pulse Ox 93 L 10/05/20 00:00 - Patient Data Result Diagrams: 10/04/20 05:30 10/04/20 05:30 Assessment/Plan Comment:: I have seen and evaluated the patient and agree with the residents note unless specified in my note. I performed a history and physical exam of the patient and discussed management with resident. I have reviewed the residents note and agree with documented findings and plan unless otherwise specified in my note.
--- NOTE | 2020-10-01 07:32 | PN ---
THC Physician - Brief Progress [id number]/30/2020 07:24[facility] Jean Carlos Gorman, HAR[facility] - DANIELN CHARLOTTE HIGHTOWERDate of Service 10/01/2020 07:24HPI/Events o f Note Case discussed with RN. 69 year old M admitted from [place] with hypoxic resp insufficiency and hy potension. Being treated for sepsis/UTI/hyperkalemia with fluids/abx, and K treated with insulin/D50 /ca-gluc.82/47 100s 94%Recs include: hemodynamic monitoring, ongoing fluids, consider echo when av ailable, supplemental O2 PRN, GI and DVT prophylaxis, abx,foollow cultures, trend LA, replace lytes a s needed, treat K if remains elevated, trend Cr and I+Os, glycemic monitoring, pain control, neuro c hecks.Interventions Minor-Communication with other healthcare providers and/or familyElectronically S igned by: GABY BROWN () on 10/01/2020 07:31
[2020-10-01] MEDS: Pantoprazole 40 MG in Sodium Chloride 0.9% 10 ML IV SCH ×2 (09:01→20:47)
[2020-10-01 09:39] LABS: CARBON DIOXIDE,CO2 25.4 mmol/L (21.0-32.0); POTASSIUM,K 4.8 mmol/L (3.5-5.1)
[2020-10-01] MEDS: Lactated Ringers 1,000 ML IV SCH ×2 (12:35→20:31)
[2020-10-01] MEDS: Cefepime 2 GM in Premix Bag 1 BAG IV SCH ×2 (15:16→22:16)
[2020-10-02] MEDS: Lactated Ringers 1,000 ML IV SCH ×3 (04:56→21:33)
[2020-10-02] MEDS: Cefepime 2 GM in Premix Bag 1 BAG IV SCH ×2 (06:18→18:23)
[2020-10-02] MEDS: Heparin Sodium 5,000 Units/ML Vial SUBCUT SCH ×2 (06:18→18:23)
[2020-10-02 07:41] LABS: CARBON DIOXIDE,CO2 22.4 mmol/L (21.0-32.0); POTASSIUM,K 3.9 mmol/L (3.5-5.1)
[2020-10-02] MEDS ORDERED: Magnesium Sulfate/Water 2 GM/50 ML BAG IV ONE (08:15)
[2020-10-02] MEDS: Pantoprazole 40 MG in Sodium Chloride 0.9% 10 ML IV SCH ×2 (08:18→21:20)
[2020-10-02] MEDS ORDERED: Furosemide 20 MG Tab PO SCH (09:00)
[2020-10-02] MEDS ORDERED: Polyethylene Glycol 3350 Powder 17 GM Packet PO PRN (18:17)
[2020-10-02] MEDS ORDERED: MENTHOL TOP PRN (18:17)
--- NOTE | 2020-10-02 18:55 | PCM.PN ---
- General Info Date of Service: 10/02/20 Subjective Update: Patient is much more alert today. Patient denies shortness of breath, chest pain, fever, chills, nausea, vomiting, abdominal pain. - Review of Systems General: Denies: Fever, Chills Pulmonary: Denies: Shortness of Breath, Cough Cardiovascular: Denies: Chest Pain, Dyspnea on Exertion Gastrointestinal: Denies: Abdominal Pain, Decreased Appetite, Nausea, Vomiting Neurological: Denies: Dizziness, Headache - Patient Data Vitals - Most Recent: Last Vital Signs Temp 97.6 F 10/02/20 15:27 Pulse 96 10/02/20 16:27 Resp 22 H 10/02/20 16:27 BP 117/66 10/02/20 16:27 Pulse Ox 93 L 10/02/20 16:27 Weight - Most Recent: 232 lb 1.6 oz I&O - Last 24 Hours: Intake & Output 10/02/20 10/02/20 10/02/20 06:59 14:59 22:59 Intake Total 1390 1986 Output Total 1570 650 Balance -180 1336 Lab Results Last 24 Hours: Laboratory Results - last 24 hr 10/01/20 10/02/20 10/02/20 Range/Units 19:46 05:50 06:28 WBC 12.23 H (4.0-11.0) K/uL RBC 4.78 (4.50-5.90) M/uL Hgb 11.6 L (13.0-17.0) g/dL Hct 37.1 L (38.0-50.0) % MCV 77.6 L (80.0-98.0) fL MCH 24.3 L (27.0-32.0) pg MCHC 31.3 (31.0-37.0) g/dL RDW Std Deviation 44.3 (28.0-62.0) fl RDW Coeff of Alberto 16 H (11.0-15.0) % Plt Count 220 (150-400) K/uL MPV 9.90 (7.40-12.00) fL Neut % (Auto) 89.8 H (48.0-80.0) % Lymph % (Auto) 4.9 L (16.0-40.0) % [place] % (Auto) 4.7 (0.0-15.0) % Eos % (Auto) 0.5 (0.0-7.0) % Baso % (Auto) 0.1 (0.0-1.5) % Neut # (Auto) 11.0 H (1.4-5.7) K/uL Lymph # (Auto) 0.6 (0.6-2.4) K/uL [place] # (Auto) 0.6 (0.0-0.8) K/uL Eos # (Auto) 0.1 (0.0-0.7) K/uL Baso # (Auto) 0.0 (0.0-0.1) K/uL Nucleated RBC % 0.0 /100WBC Nucleated RBCs # 0 K/uL Sodium (136-148) mmol/L Potassium (3.5-5.1) mmol/L Chloride (98-107) mmol/L Carbon Dioxide (21.0-32.0) mmol/L BUN (7.0-18.0) mg/dL Creatinine (0.8-1.3) mg/dL Est Cr Clr Drug Dosing mL/min Estimated GFR (MDRD) ml/min Glucose (74-106) mg/dL POC Glucose 141 H 164 H (60-110) mg/dL Calcium (8.5-10.1) mg/dL Magnesium (1.8-2.4) mg/dL Total Bilirubin (0.2-1.0) mg/dL AST (15-37) IU/L ALT (14-63) IU/L Alkaline Phosphatase (46-116) U/L Total Protein (6.4-8.2) g/dL Albumin (3.4-5.0) g/dL Globulin (2.6-4.0) g/dL Albumin/Globulin Ratio (0.9-1.6) 10/02/20 10/02/20 Range/Units 06:28 14:16 WBC (4.0-11.0) K/uL RBC (4.50-5.90) M/uL Hgb (13.0-17.0) g/dL Hct (38.0-50.0) % MCV (80.0-98.0) fL MCH (27.0-32.0) pg MCHC (31.0-37.0) g/dL RDW Std Deviation (28.0-62.0) fl RDW Coeff of Alberto (11.0-15.0) % Plt Count (150-400) K/uL MPV (7.40-12.00) fL Neut % (Auto) (48.0-80.0) % Lymph % (Auto) (16.0-40.0) % [place] % (Auto) (0.0-15.0) % Eos % (Auto) (0.0-7.0) % Baso % (Auto) (0.0-1.5) % Neut # (Auto) (1.4-5.7) K/uL Lymph # (Auto) (0.6-2.4) K/uL [place] # (Auto) (0.0-0.8) K/uL Eos # (Auto) (0.0-0.7) K/uL Baso # (Auto) (0.0-0.1) K/uL Nucleated RBC % /100WBC Nucleated RBCs # K/uL Sodium 141 (136-148) mmol/L Potassium 3.9 (3.5-5.1) mmol/L Chloride 108 H (98-107) mmol/L Carbon Dioxide 22.4 (21.0-32.0) mmol/L BUN 40 H (7.0-18.0) mg/dL Creatinine 2.0 H (0.8-1.3) mg/dL Est Cr Clr Drug Dosing 35.72 mL/min Estimated GFR (MDRD) 33.5 ml/min Glucose 108 H (74-106) mg/dL POC Glucose 160 H (60-110) mg/dL Calcium 8.7 (8.5-10.1) mg/dL Magnesium 1.7 L (1.8-2.4) mg/dL Total Bilirubin 0.7 (0.2-1.0) mg/dL AST 43 H (15-37) IU/L ALT 20 (14-63) IU/L Alkaline Phosphatase 80 (46-116) U/L Total Protein 5.7 L (6.4-8.2) g/dL Albumin 2.0 L (3.4-5.0) g/dL Globulin 3.7 (2.6-4.0) g/dL Albumin/Globulin Ratio 0.5 L (0.9-1.6) Shay Results Last 24 Hours: Microbiology 10/01/20 02:05 Aerobic Blood Culture - Preliminary Blood - Venous - Lab Draw NO GROWTH AFTER 1 DAY Anaerobic Blood Culture - Preliminary NO GROWTH AFTER 1 DAY 10/01/20 01:30 Aerobic Blood Culture - Preliminary Blood - Venous NO GROWTH AFTER 1 DAY Anaerobic Blood Culture - Preliminary NO GROWTH AFTER 1 DAY Med Orders - Current: Current Medications Albuterol/Ipratropium (Duoneb 3.0-0.5 Mg/3 Ml) 3 ml NEB Q4HRRT PRN PRN Reason: SOB and Wheezes Dextrose/Water (Dextrose 50% In Water) 50 ml IV ASDIRECTED PRN PRN Reason: hyperkalemia Last Admin: 10/01/20 06:47 Dose: 50 ml Documented by: Finasteride (Proscar) 5 mg PO DAILY [facility] Glucagon (Glucagen) 1 mg IM ASDIRECTED PRN PRN Reason: Hypoglycemia Heparin Sodium (Porcine) (Heparin Sodium) 5,000 units SUBCUT Q12H [facility] Last Admin: 10/02/20 18:23 Dose: 5,000 units Documented by: Pantoprazole Sodium 40 mg/ (Sodium Chloride) 10 mls @ 300 mls/hr IV BID [facility] Last Admin: 10/02/20 08:18 Dose: 300 mls/hr Documented by: Lactated Ringer's (Ringers, Lactated) 1,000 mls @ 125 mls/hr IV ASDIRECTED [facility] Last Admin: 10/02/20 13:27 Dose: 125 mls/hr Documented by: Vancomycin HCl 1.5 gm/ Premix 300 mls @ 200 mls/hr IV Q24H [facility] Last Admin: 10/02/20 15:48 Dose: 200 mls/hr Documented by: Cefepime HCl 2 gm/ Premix 50 mls @ 100 mls/hr IV Q12H [facility] Last Admin: 10/02/20 18:23 Dose: 100 mls/hr Documented by: Non-Formulary Medication (Menthol [Biofreeze]) 1 applic TOP BID PRN PRN Reason: Pain Nystatin (Nystop) 0 gm TOP TID [facility] Polyethylene Glycol (Miralax) 17 gm PO DAILY PRN PRN Reason: Constipation Sodium Chloride (Saline Flush) 10 ml FLUSH ASDIRECTED PRN PRN Reason: Keep Vein Open Last Admin: 10/01/20 01:41 Dose: 10 ml Documented by: Sodium Chloride (Saline Flush) 2.5 ml FLUSH ASDIRECTED PRN PRN Reason: Keep Vein Open Last Admin: 10/01/20 01:41 Dose: 2.5 ml Documented by: Vancomycin HCl (Pharmacy To Dose - Vancomycin) 1 dose .XX ASDIRECTED FIDELIA Discontinued Medications Calcium Gluconate (Calcium Gluconate) 1 gm IVPUSH ONETIME ONE Stop: 10/01/20 06:14 Last Admin: 10/01/20 06:46 Dose: 1 gm Documented by: Calcium Gluconate (Calcium Gluconate) Confirm Administered Dose 1 gm .ROUTE .STK-MED ONE Stop: 10/01/20 06:36 Last Admin: 10/01/20 07:04 Dose: Not Given Documented by: Dextrose/Water (Dextrose 50% In Water) Confirm Administered Dose 50 ml .ROUTE .STK-MED ONE Stop: 10/01/20 06:36 Last Admin: 10/01/20 07:04 Dose: Not Given Documented by: Furosemide (Lasix) 20 mg PO DAILY [facility] Lactated Ringer's (Ringers, Lactated) 1,000 mls @ 999 mls/hr IV .BOLUS ONE Stop: 10/01/20 02:34 Last Admin: 10/01/20 01:43 Dose: 999 mls/hr Documented by: Cefepime HCl 2 gm/ Premix 50 mls @ 100 mls/hr IV ONETIME ONE Stop: 10/01/20 02:23 Last Admin: 10/01/20 03:43 Dose: 100 mls/hr Documented by: Lactated Ringer's (Ringers, Lactated) 1,000 mls @ 999 mls/hr IV .BOLUS ONE Stop: 10/01/20 03:19 Last Admin: 10/01/20 02:54 Dose: 999 mls/hr Documented by: Lactated Ringer's (Ringers, Lactated) 1,000 mls @ 999 mls/hr IV .BOLUS ONE Stop: 10/01/20 07:22 Last Admin: 10/01/20 06:48 Dose: 999 mls/hr Documented by: Vancomycin HCl 2 gm/ Premix 400 mls @ 200 mls/hr IV NOW ONE Stop: 10/01/20 08:59 Last Admin: 10/01/20 08:04 Dose: 200 mls/hr Documented by: Lactated Ringer's (Ringers, Lactated) 500 mls @ 999 mls/hr IV .BOLUS ONE Stop: 10/01/20 07:12 Last Admin: 10/01/20 07:55 Dose: 999 mls/hr Documented by: Cefepime HCl 2 gm/ Premix 50 mls @ 100 mls/hr IV Q8H [facility]IDELIA Last Admin: 10/02/20 06:18 Dose: 100 mls/hr Documented by: Magnesium Sulfate (Magnesium Sulfate In Water Premix) 2 gm in 50 mls @ 50 mls/hr IV ONETIME ONE Stop: 10/02/20 09:14 Last Admin: 10/02/20 08:25 Dose: 50 mls/hr Documented by: Insulin Human Regular (Novolin R) 10 unit IVPUSH ONETIME ONE Stop: 10/01/20 06:18 Last Admin: 10/01/20 06:46 Dose: 10 unit Documented by: - Exam General: Alert, Oriented Lungs: Clear to Auscultation, Normal Respiratory Effort Cardiovascular: Regular Rate GI/Abdominal Exam: Soft, Non-Tender Wound/Incisions: Dressing Dry and Intact (sacral ulcer) Psy/Mental Status: Alert Sepsis Event Note - Evaluation Sepsis Screening Result: Severe Sepsis Risk - Focused Exam Vital Signs: Vital Signs Temp Pulse Resp BP Pulse Ox 10/02/20 16:27 96 22 H 117/66 93 L 10/02/20 15:27 97.6 F 93 24 H 107/70 93 L 10/02/20 14:27 100 22 H 99/70 97 10/02/20 13:27 96 26 H 111/64 95 10/02/20 12:28 93 21 H 102/58 L 92 L 10/02/20 11:28 110 H 26 H 95/58 L 93 L 10/02/20 10:12 96 21 H 80/58 L 94 L 10/02/20 09:48 102 H 22 H 98/48 L 96 10/02/20 08:32 97.6 F 110 H 22 H 100/52 L 93 L 10/02/20 07:00 20 107/56 L 95 - Problem List Review Problem List Initiated/Reviewed/Updated: Yes - My Orders Last 24 Hours: My Active Orders 10/01/20 19:04 Code Status [Resuscitation Status] Routine 10/02/20 08:15 Consult to Wound Care Services [CONS] Routine 10/02/20 Lunch [employer] Diet [DIET] 10/02/20 18:17 Menthol [Biofreeze] 1 applic TOP BID PRN polyethylene glycoL 3350 [MiraLAX] 17 gm PO DAILY PRN 10/02/20 22:00 Nystatin [Nystop] 0 gm TOP TID 10/03/20 05:11 CBC WITH AUTO DIFF [HEME] AM COMPREHENSIVE METABOLIC PN,CMP [CHEM] AM MAGNESIUM [CHEM] AM 10/03/20 09:00 Finasteride [Proscar] 5 mg PO DAILY - Plan Plan:: Sepsis/UTI-LR 125ml/hr Vancomycin, Cefepime, hemodynamic monitoring, fluids as needed, supplemental O2 as needed, blood cultures, I&O's, heparin 5000 units Q12, pantoprazole 40 mg. Hyperkalemia- resolved, 3.9 Sacral Ulcer- Dressing changed. Wound therapy consulted. Patient's condition has improved today. Creatinine has come down to 2.0, was 4.8 admission. Current MAP low 80s.
[2020-10-02] MEDS ORDERED: Potassium Chloride Riders 20 MEQ in Premix Bag 1 BAG IV ONE (21:22)
[2020-10-02] MEDS: Nystatin Topical Powder 15 GM Bottle TOP SCH (21:28)
[2020-10-02] MEDS ORDERED: Sodium Chloride 0.9% 1,000 ML IV SCH (21:30)
[2020-10-03] MEDS: Lactated Ringers 1,000 ML IV SCH (05:13)
[2020-10-03] MEDS: Cefepime 2 GM in Premix Bag 1 BAG IV SCH ×2 (05:51→18:28)
[2020-10-03] MEDS: Heparin Sodium 5,000 Units/ML Vial SUBCUT SCH ×2 (05:51→18:30)
[2020-10-03] MEDS: Nystatin Topical Powder 15 GM Bottle TOP SCH ×3 (05:57→21:32)
[2020-10-03 07:19] LABS: CARBON DIOXIDE,CO2 25.3 mmol/L (21.0-32.0); POTASSIUM,K 3.8 mmol/L (3.5-5.1)
[2020-10-03] MEDS: Finasteride 5 MG Tab PO SCH (09:27)
[2020-10-03] MEDS: Pantoprazole 40 MG in Sodium Chloride 0.9% 10 ML IV SCH ×2 (09:29→21:31)
--- NOTE | 2020-10-03 16:15 | PCM.PN ---
- General Info Date of Service: 10/03/20 Subjective Update: Patient denies fever, chills, nausea, abdominal pain, shortness of breath, chest pain, dizziness. - Review of Systems General: Denies: Fever, Chills Pulmonary: Denies: Shortness of Breath, Pleuritic Chest Pain Cardiovascular: Denies: Chest Pain, Dyspnea on Exertion Gastrointestinal: Denies: Abdominal Pain, Nausea, Vomiting Neurological: Denies: Confusion, Dizziness, Headache - Patient Data Vitals - Most Recent: Last Vital Signs Temp 97.2 F 10/03/20 15:55 Pulse 90 10/03/20 15:55 Resp 16 10/03/20 15:55 BP 116/73 10/03/20 15:55 Pulse Ox 94 L 10/03/20 15:55 Weight - Most Recent: 232 lb 1.6 oz I&O - Last 24 Hours: Intake & Output 10/03/20 10/03/20 10/03/20 06:59 14:59 22:59 Intake Total 310 1209 Output Total 1370 425 Balance -1060 784 Lab Results Last 24 Hours: Laboratory Results - last 24 hr 10/02/20 10/03/20 10/03/20 Range/Units 23:46 06:13 06:29 WBC 11.81 H (4.0-11.0) K/uL RBC 4.52 (4.50-5.90) M/uL Hgb 11.0 L (13.0-17.0) g/dL Hct 35.1 L (38.0-50.0) % MCV 77.7 L (80.0-98.0) fL MCH 24.3 L (27.0-32.0) pg MCHC 31.3 (31.0-37.0) g/dL RDW Std Deviation 44.7 (28.0-62.0) fl RDW Coeff of Alberto 16 H (11.0-15.0) % Plt Count 215 (150-400) K/uL MPV 9.40 (7.40-12.00) fL Neut % (Auto) 89.7 H (48.0-80.0) % Lymph % (Auto) 4.5 L (16.0-40.0) % [place] % (Auto) 4.7 (0.0-15.0) % Eos % (Auto) 1.0 (0.0-7.0) % Baso % (Auto) 0.1 (0.0-1.5) % Neut # (Auto) 10.6 H (1.4-5.7) K/uL Lymph # (Auto) 0.5 L (0.6-2.4) K/uL [place] # (Auto) 0.6 (0.0-0.8) K/uL Eos # (Auto) 0.1 (0.0-0.7) K/uL Baso # (Auto) 0.0 (0.0-0.1) K/uL Nucleated RBC % 0.0 /100WBC Nucleated RBCs # 0 K/uL Sodium (136-148) mmol/L Potassium (3.5-5.1) mmol/L Chloride (98-107) mmol/L Carbon Dioxide (21.0-32.0) mmol/L BUN (7.0-18.0) mg/dL Creatinine (0.8-1.3) mg/dL Est Cr Clr Drug Dosing mL/min Estimated GFR (MDRD) ml/min Glucose (74-106) mg/dL POC Glucose 149 H 180 H (60-110) mg/dL Calcium (8.5-10.1) mg/dL Magnesium (1.8-2.4) mg/dL Total Bilirubin (0.2-1.0) mg/dL AST (15-37) IU/L ALT (14-63) IU/L Alkaline Phosphatase (46-116) U/L Total Protein (6.4-8.2) g/dL Albumin (3.4-5.0) g/dL Globulin (2.6-4.0) g/dL Albumin/Globulin Ratio (0.9-1.6) Vancomycin Trough (5.0-10.0) ug/mL 10/03/20 10/03/20 10/03/20 Range/Units 06:29 08:52 13:13 WBC (4.0-11.0) K/uL RBC (4.50-5.90) M/uL Hgb (13.0-17.0) g/dL Hct (38.0-50.0) % MCV (80.0-98.0) fL MCH (27.0-32.0) pg MCHC (31.0-37.0) g/dL RDW Std Deviation (28.0-62.0) fl RDW Coeff of Alberto (11.0-15.0) % Plt Count (150-400) K/uL MPV (7.40-12.00) fL Neut % (Auto) (48.0-80.0) % Lymph % (Auto) (16.0-40.0) % [place] % (Auto) (0.0-15.0) % Eos % (Auto) (0.0-7.0) % Baso % (Auto) (0.0-1.5) % Neut # (Auto) (1.4-5.7) K/uL Lymph # (Auto) (0.6-2.4) K/uL [place]iken # (Auto) (0.0-0.8) K/uL Eos # (Auto) (0.0-0.7) K/uL Baso # (Auto) (0.0-0.1) K/uL Nucleated RBC % /100WBC Nucleated RBCs # K/uL Sodium 138 (136-148) mmol/L Potassium 3.8 (3.5-5.1) mmol/L Chloride 106 (98-107) mmol/L Carbon Dioxide 25.3 (21.0-32.0) mmol/L BUN 32 H (7.0-18.0) mg/dL Creatinine 1.5 H (0.8-1.3) mg/dL Est Cr Clr Drug Dosing 47.63 mL/min Estimated GFR (MDRD) 46.7 ml/min Glucose 149 H (74-106) mg/dL POC Glucose 143 H 168 H (60-110) mg/dL Calcium 8.1 L (8.5-10.1) mg/dL Magnesium 2.0 (1.8-2.4) mg/dL Total Bilirubin 0.7 (0.2-1.0) mg/dL AST 21 (15-37) IU/L ALT 17 (14-63) IU/L Alkaline Phosphatase 84 (46-116) U/L Total Protein 5.6 L (6.4-8.2) g/dL Albumin 1.9 L (3.4-5.0) g/dL Globulin 3.7 (2.6-4.0) g/dL Albumin/Globulin Ratio 0.5 L (0.9-1.6) Vancomycin Trough (5.0-10.0) ug/mL 10/03/20 Range/Units 15:16 WBC (4.0-11.0) K/uL RBC (4.50-5.90) M/uL Hgb (13.0-17.0) g/dL Hct (38.0-50.0) % MCV (80.0-98.0) fL MCH (27.0-32.0) pg MCHC (31.0-37.0) g/dL RDW Std Deviation (28.0-62.0) fl RDW Coeff of Alberto (11.0-15.0) % Plt Count (150-400) K/uL MPV (7.40-12.00) fL Neut % (Auto) (48.0-80.0) % Lymph % (Auto) (16.0-40.0) % [place] % (Auto) (0.0-15.0) % Eos % (Auto) (0.0-7.0) % Baso % (Auto) (0.0-1.5) % Neut # (Auto) (1.4-5.7) K/uL Lymph # (Auto) (0.6-2.4) K/uL [place]iken # (Auto) (0.0-0.8) K/uL Eos # (Auto) (0.0-0.7) K/uL Baso # (Auto) (0.0-0.1) K/uL Nucleated RBC % /100WBC Nucleated RBCs # K/uL Sodium (136-148) mmol/L Potassium (3.5-5.1) mmol/L Chloride (98-107) mmol/L Carbon Dioxide (21.0-32.0) mmol/L BUN (7.0-18.0) mg/dL Creatinine (0.8-1.3) mg/dL Est Cr Clr Drug Dosing mL/min Estimated GFR (MDRD) ml/min Glucose (74-106) mg/dL POC Glucose (60-110) mg/dL Calcium (8.5-10.1) mg/dL Magnesium (1.8-2.4) mg/dL Total Bilirubin (0.2-1.0) mg/dL AST (15-37) IU/L ALT (14-63) IU/L Alkaline Phosphatase (46-116) U/L Total Protein (6.4-8.2) g/dL Albumin (3.4-5.0) g/dL Globulin (2.6-4.0) g/dL Albumin/Globulin Ratio (0.9-1.6) Vancomycin Trough 16.8 H (5.0-10.0) ug/mL Shay Results Last 24 Hours: Microbiology 10/01/20 02:05 Aerobic Blood Culture - Preliminary Blood - Venous - Lab Draw NO GROWTH AFTER 2 DAYS Anaerobic Blood Culture - Preliminary NO GROWTH AFTER 2 DAYS 10/01/20 01:30 Aerobic Blood Culture - Preliminary Blood - Venous NO GROWTH AFTER 2 DAYS Anaerobic Blood Culture - Preliminary NO GROWTH AFTER 2 DAYS Med Orders - Current: Current Medications Albuterol/Ipratropium (Duoneb 3.0-0.5 Mg/3 Ml) 3 ml NEB Q4HRRT PRN PRN Reason: SOB and Wheezes Dextrose/Water (Dextrose 50% In Water) 50 ml IV ASDIRECTED PRN PRN Reason: hyperkalemia Last Admin: 10/01/20 06:47 Dose: 50 ml Documented by: Finasteride (Proscar) 5 mg PO DAILY [facility] Last Admin: 10/03/20 09:27 Dose: 5 mg Documented by: Glucagon (Glucagen) 1 mg IM ASDIRECTED PRN PRN Reason: Hypoglycemia Heparin Sodium (Porcine) (Heparin Sodium) 5,000 units SUBCUT Q12H [facility] Last Admin: 10/03/20 05:51 Dose: 5,000 units Documented by: Pantoprazole Sodium 40 mg/ (Sodium Chloride) 10 mls @ 300 mls/hr IV BID [facility] Last Admin: 10/03/20 09:29 Dose: 300 mls/hr Documented by: Vancomycin HCl 1.5 gm/ Premix 300 mls @ 200 mls/hr IV Q24H [facility] Last Admin: 10/02/20 15:48 Dose: 200 mls/hr Documented by: Cefepime HCl 2 gm/ Premix 50 mls @ 100 mls/hr IV Q12H [facility] Last Admin: 10/03/20 05:51 Dose: 100 mls/hr Documented by: Nystatin (Nystop) 0 gm TOP TID [facility] Last Admin: 10/03/20 15:57 Dose: Not Given Documented by: Menthol [Biofreeze] (1 Applic) 1 each TOP BID PRN PRN Reason: Pain Polyethylene Glycol (Miralax) 17 gm PO DAILY PRN PRN Reason: Constipation Sodium Chloride (Saline Flush) 10 ml FLUSH ASDIRECTED PRN PRN Reason: Keep Vein Open Last Admin: 10/01/20 01:41 Dose: 10 ml Documented by: Sodium Chloride (Saline Flush) 2.5 ml FLUSH ASDIRECTED PRN PRN Reason: Keep Vein Open Last Admin: 10/01/20 01:41 Dose: 2.5 ml Documented by: Vancomycin HCl (Pharmacy To Dose - Vancomycin) 1 dose .XX ASDIRECTED [facility] Discontinued Medications Calcium Gluconate (Calcium Gluconate) 1 gm IVPUSH ONETIME ONE Stop: 10/01/20 06:14 Last Admin: 10/01/20 06:46 Dose: 1 gm Documented by: Calcium Gluconate (Calcium Gluconate) Confirm Administered Dose 1 gm .ROUTE .STK-MED ONE Stop: 10/01/20 06:36 Last Admin: 10/01/20 07:04 Dose: Not Given Documented by: Dextrose/Water (Dextrose 50% In Water) Confirm Administered Dose 50 ml .ROUTE .STK-MED ONE Stop: 10/01/20 06:36 Last Admin: 10/01/20 07:04 Dose: Not Given Documented by: Furosemide (Lasix) 20 mg PO DAILY [facility] Lactated Ringer's (Ringers, Lactated) 1,000 mls @ 999 mls/hr IV .BOLUS ONE Stop: 10/01/20 02:34 Last Admin: 10/01/20 01:43 Dose: 999 mls/hr Documented by: Cefepime HCl 2 gm/ Premix 50 mls @ 100 mls/hr IV ONETIME ONE Stop: 10/01/20 02:23 Last Admin: 10/01/20 03:43 Dose: 100 mls/hr Documented by: Lactated Ringer's (Ringers, Lactated) 1,000 mls @ 999 mls/hr IV .BOLUS ONE Stop: 10/01/20 03:19 Last Admin: 10/01/20 02:54 Dose: 999 mls/hr Documented by: Lactated Ringer's (Ringers, Lactated) 1,000 mls @ 999 mls/hr IV .BOLUS ONE Stop: 10/01/20 07:22 Last Admin: 10/01/20 06:48 Dose: 999 mls/hr Documented by: Vancomycin HCl 2 gm/ Premix 400 mls @ 200 mls/hr IV NOW ONE Stop: 10/01/20 08:59 Last Admin: 10/01/20 08:04 Dose: 200 mls/hr Documented by: Lactated Ringer's (Ringers, Lactated) 500 mls @ 999 mls/hr IV .BOLUS ONE Stop: 10/01/20 07:12 Last Admin: 10/01/20 07:55 Dose: 999 mls/hr Documented by: Lactated Ringer's (Ringers, Lactated) 1,000 mls @ 125 mls/hr IV ASDIRECTED [facility] Last Admin: 10/03/20 05:13 Dose: 125 mls/hr Documented by: Cefepime HCl 2 gm/ Premix 50 mls @ 100 mls/hr IV Q8H [facility] Last Admin: 10/02/20 06:18 Dose: 100 mls/hr Documented by: Magnesium Sulfate (Magnesium Sulfate In Water Premix) 2 gm in 50 mls @ 50 mls/hr IV ONETIME ONE Stop: 10/02/20 09:14 Last Admin: 10/02/20 08:25 Dose: 50 mls/hr Documented by: Sodium Chloride (Normal Saline) 1,000 mls @ 100 mls/hr IV ASDIRECTED [facility] Insulin Human Regular (Novolin R) 10 unit IVPUSH ONETIME ONE Stop: 10/01/20 06:18 Last Admin: 10/01/20 06:46 Dose: 10 unit Documented by: - Exam General: Alert, Oriented Lungs: Clear to Auscultation, Normal Respiratory Effort Cardiovascular: Regular Rate, Regular Rhythm GI/Abdominal Exam: Normal Bowel Sounds, Soft, Non-Tender Wound/Incisions: Dressing Dry and Intact (SACRAL PRESSURE ULCER) Psy/Mental Status: Alert Sepsis Event Note - Evaluation Sepsis Screening Result: Sepsis Risk - Focused Exam Vital Signs: Vital Signs Temp Pulse Resp BP Pulse Ox 10/03/20 15:55 97.2 F 90 16 116/73 94 L 10/03/20 13:38 97.3 F 84 16 133/80 98 10/03/20 13:00 97.8 F 82 20 135/90 94 L 10/03/20 09:16 87 22 H 138/85 96 10/03/20 08:27 80 20 120/72 94 L 10/03/20 07:28 97.9 F 79 17 133/83 92 L 10/03/20 07:00 14 125/74 96 10/03/20 06:00 13 148/90 H 93 L 10/03/20 05:00 20 126/83 98 - Problem List Review Problem List Initiated/Reviewed/Updated: Yes - My Orders Last 24 Hours: My Active Orders 10/02/20 18:17 Patient's Own Medication [Ptom] 1 each TOP BID PRN polyethylene glycoL 3350 [MiraLAX] 17 gm PO DAILY PRN 10/02/20 22:00 Nystatin [Nystop] 0 gm TOP TID 10/03/20 09:00 Finasteride [Proscar] 5 mg PO DAILY 10/05/20 15:00 VANCOMYCIN TROUGH [CHEM] Routine - Plan Plan:: Sepsis/UTI- Sepsis resolved and UTI appropriately treated with Vancomycin, Cefepime, afebrile, normotensive. D/C IV fluids. Blood cultures negative for growth. I&O's, heparin 5000 units Q12, pantoprazole 40 mg. Sacral Ulcer- Wound therapy consulted and made recommendation to contact general surgery. General surgery contacted and made recommendation to have patient seen by plastic surgery. General surgery did not assess wound.
[2020-10-03] MEDS ORDERED: 50% Dextrose in Water 50 ML Syringe IV PRN (16:42)
[2020-10-03] MEDS ORDERED: Glucagon,Human Recombinant 1 MG Vial IM PRN (16:42)
[2020-10-03] MEDS: Insulin Aspart 100 Units/ML 3 ML Pen SUBCUT SCH (17:07)
[2020-10-04] MEDS: Cefepime 2 GM in Premix Bag 1 BAG IV SCH ×2 (05:29→18:59)
[2020-10-04] MEDS: Heparin Sodium 5,000 Units/ML Vial SUBCUT SCH ×2 (05:38→19:00)
[2020-10-04] MEDS: Nystatin Topical Powder 15 GM Bottle TOP SCH ×3 (05:43→21:35)
[2020-10-04 06:32] LABS: CARBON DIOXIDE,CO2 26.4 mmol/L (21.0-32.0); POTASSIUM,K 4.2 mmol/L (3.5-5.1)
[2020-10-04] MEDS: Albuterol/Ipratropium 3.0-0.5 MG/3 ML Neb Soln NEB PRN ×2 (06:58→14:01)
[2020-10-04] MEDS: Insulin Aspart 100 Units/ML 3 ML Pen SUBCUT SCH ×3 (08:20→17:31)
[2020-10-04] MEDS: Finasteride 5 MG Tab PO SCH (09:22)
[2020-10-04] MEDS: Pantoprazole 40 MG in Sodium Chloride 0.9% 10 ML IV SCH ×2 (09:26→21:35)
--- NOTE | 2020-10-04 09:30 | CR ---
INDICATION: Shortness of breath TECHNIQUE: Chest 1 view. COMPARISON: Chest radiograph 10/01/2020. FINDINGS: Stable small left pleural effusion with left basilar atelectasis. Patchy opacity in the medial right lung base may represent atelectasis or infiltrate. No pneumothorax. Heart size upper limits of normal. Normal pulmonary vascularity. IMPRESSION: 1. Stable small left pleural effusion with left basilar atelectasis. 2. Patchy opacity in the medial right lung base may represent atelectasis or infiltrate. Dictated by Jackie Yu MD @ Oct 04 2020 9:26AM Signed by Dr. Jackie Yu @ Oct 04 2020 9:28AM
--- NOTE | 2020-10-04 14:02 | PCM.PN ---
- General Info Date of Service: 10/04/20 Subjective Update: Patient states that he feels fine, denies shortness of breath, chest pain, back pain, chills. Patient has a good appetite and slept well last night. - Review of Systems General: Denies: Fever, Chills Pulmonary: Denies: Shortness of Breath, Cough Cardiovascular: Denies: Chest Pain, Palpitations Gastrointestinal: Denies: Abdominal Pain, Nausea, Vomiting Musculoskeletal: Denies: Back Pain Neurological: Denies: Confusion, Dizziness, Headache - Patient Data Vitals - Most Recent: Last Vital Signs Temp 98.3 F 10/04/20 11:47 Pulse 89 10/04/20 11:47 Resp 18 10/04/20 11:47 BP 134/81 10/04/20 11:47 Pulse Ox 93 L 10/04/20 11:47 Weight - Most Recent: 232 lb 1.6 oz I&O - Last 24 Hours: Intake & Output 10/03/20 10/04/20 10/04/20 22:59 06:59 14:59 Intake Total 250 600 Output Total 200 1000 Balance 50 -400 Lab Results Last 24 Hours: Laboratory Results - last 24 hr 10/03/20 10/03/20 10/04/20 Range/Units 15:16 16:22 05:30 WBC 13.81 H (4.0-11.0) K/uL RBC 5.13 (4.50-5.90) M/uL Hgb 12.6 L (13.0-17.0) g/dL Hct 39.4 (38.0-50.0) % MCV 76.8 L (80.0-98.0) fL MCH 24.6 L (27.0-32.0) pg MCHC 32.0 (31.0-37.0) g/dL RDW Std Deviation 43.4 (28.0-62.0) fl RDW Coeff of Alberto 16 H (11.0-15.0) % Plt Count 271 (150-400) K/uL MPV 9.40 (7.40-12.00) fL Neut % (Auto) 89.4 H (48.0-80.0) % Lymph % (Auto) 5.0 L (16.0-40.0) % [place] % (Auto) 5.1 (0.0-15.0) % Eos % (Auto) 0.4 (0.0-7.0) % Baso % (Auto) 0.1 (0.0-1.5) % Neut # (Auto) 12.4 H (1.4-5.7) K/uL Lymph # (Auto) 0.7 (0.6-2.4) K/uL [place] # (Auto) 0.7 (0.0-0.8) K/uL Eos # (Auto) 0.1 (0.0-0.7) K/uL Baso # (Auto) 0.0 (0.0-0.1) K/uL Nucleated RBC % 0.0 /100WBC Nucleated RBCs # 0 K/uL Sodium (136-148) mmol/L Potassium (3.5-5.1) mmol/L Chloride (98-107) mmol/L Carbon Dioxide (21.0-32.0) mmol/L BUN (7.0-18.0) mg/dL Creatinine (0.8-1.3) mg/dL Est Cr Clr Drug Dosing mL/min Estimated GFR (MDRD) ml/min Glucose (74-106) mg/dL POC Glucose 158 H (60-110) mg/dL Calcium (8.5-10.1) mg/dL Vancomycin Trough 16.8 H (5.0-10.0) ug/mL 10/04/20 10/04/20 10/04/20 Range/Units 05:30 05:53 08:05 WBC (4.0-11.0) K/uL RBC (4.50-5.90) M/uL Hgb (13.0-17.0) g/dL Hct (38.0-50.0) % MCV (80.0-98.0) fL MCH (27.0-32.0) pg MCHC (31.0-37.0) g/dL RDW Std Deviation (28.0-62.0) fl RDW Coeff of Alberto (11.0-15.0) % Plt Count (150-400) K/uL MPV (7.40-12.00) fL Neut % (Auto) (48.0-80.0) % Lymph % (Auto) (16.0-40.0) % [place] % (Auto) (0.0-15.0) % Eos % (Auto) (0.0-7.0) % Baso % (Auto) (0.0-1.5) % Neut # (Auto) (1.4-5.7) K/uL Lymph # (Auto) (0.6-2.4) K/uL [place] # (Auto) (0.0-0.8) K/uL Eos # (Auto) (0.0-0.7) K/uL Baso # (Auto) (0.0-0.1) K/uL Nucleated RBC % /100WBC Nucleated RBCs # K/uL Sodium 138 (136-148) mmol/L Potassium 4.2 (3.5-5.1) mmol/L Chloride 105 (98-107) mmol/L Carbon Dioxide 26.4 (21.0-32.0) mmol/L BUN 27 H (7.0-18.0) mg/dL Creatinine 1.3 (0.8-1.3) mg/dL Est Cr Clr Drug Dosing 54.96 mL/min Estimated GFR (MDRD) 55.1 ml/min Glucose 156 H (74-106) mg/dL POC Glucose 154 H 154 H (60-110) mg/dL Calcium 8.7 (8.5-10.1) mg/dL Vancomycin Trough (5.0-10.0) ug/mL 10/04/20 Range/Units 11:32 WBC (4.0-11.0) K/uL RBC (4.50-5.90) M/uL Hgb (13.0-17.0) g/dL Hct (38.0-50.0) % MCV (80.0-98.0) fL MCH (27.0-32.0) pg MCHC (31.0-37.0) g/dL RDW Std Deviation (28.0-62.0) fl RDW Coeff of Alberto (11.0-15.0) % Plt Count (150-400) K/uL MPV (7.40-12.00) fL Neut % (Auto) (48.0-80.0) % Lymph % (Auto) (16.0-40.0) % [place] % (Auto) (0.0-15.0) % Eos % (Auto) (0.0-7.0) % Baso % (Auto) (0.0-1.5) % Neut # (Auto) (1.4-5.7) K/uL Lymph # (Auto) (0.6-2.4) K/uL [place] # (Auto) (0.0-0.8) K/uL Eos # (Auto) (0.0-0.7) K/uL Baso # (Auto) (0.0-0.1) K/uL Nucleated RBC % /100WBC Nucleated RBCs # K/uL Sodium (136-148) mmol/L Potassium (3.5-5.1) mmol/L Chloride (98-107) mmol/L Carbon Dioxide (21.0-32.0) mmol/L BUN (7.0-18.0) mg/dL Creatinine (0.8-1.3) mg/dL Est Cr Clr Drug Dosing mL/min Estimated GFR (MDRD) ml/min Glucose (74-106) mg/dL POC Glucose 160 H (60-110) mg/dL Calcium (8.5-10.1) mg/dL Vancomycin Trough (5.0-10.0) ug/mL Shay Results Last 24 Hours: Microbiology 10/01/20 02:05 Aerobic Blood Culture - Preliminary Blood - Venous - Lab Draw NO GROWTH AFTER 3 DAYS Anaerobic Blood Culture - Preliminary NO GROWTH AFTER 3 DAYS 10/01/20 01:30 Aerobic Blood Culture - Preliminary Blood - Venous NO GROWTH AFTER 3 DAYS Anaerobic Blood Culture - Preliminary NO GROWTH AFTER 3 DAYS Med Orders - Current: Current Medications Albuterol/Ipratropium (Duoneb 3.0-0.5 Mg/3 Ml) 3 ml NEB Q4HRRT PRN PRN Reason: SOB and Wheezes Last Admin: 10/04/20 06:58 Dose: 3 ml Documented by: Dextrose/Water (Dextrose 50% In Water) 50 ml IV ASDIRECTED PRN PRN Reason: Hypoglycemia Finasteride (Proscar) 5 mg PO DAILY [facility] [place] Last Admin: 10/04/20 09:22 Dose: 5 mg Documented by: Glucagon (Glucagen) 1 mg IM ASDIRECTED PRN PRN Reason: Hypoglycemia Heparin Sodium (Porcine) (Heparin Sodium) 5,000 units SUBCUT Q12H [facility] [place] Last Admin: 10/04/20 05:38 Dose: 5,000 units Documented by: Pantoprazole Sodium 40 mg/ (Sodium Chloride) 10 mls @ 300 mls/hr IV BID [facility] [place] Last Admin: 10/04/20 09:26 Dose: 300 mls/hr Documented by: Vancomycin HCl 1.5 gm/ Premix 300 mls @ 200 mls/hr IV Q24H [facility] [place] Last Admin: 10/03/20 16:22 Dose: 200 mls/hr Documented by: Cefepime HCl 2 gm/ Premix 50 mls @ 100 mls/hr IV Q12H [facility] [place] Last Admin: 10/04/20 05:29 Dose: 100 mls/hr Documented by: Insulin Aspart (Novolog) 0 unit SUBCUT TIDAC [facility] [place]; Protocol Last Admin: 10/04/20 11:42 Dose: 1 unit Documented by: Nystatin (Nystop) 0 gm TOP TID [facility] [place] Last Admin: 10/04/20 05:43 Dose: 1 applic Documented by: Menthol [Biofreeze] (1 Applic) 1 each TOP BID PRN PRN Reason: Pain Polyethylene Glycol (Miralax) 17 gm PO DAILY PRN PRN Reason: Constipation Sodium Chloride (Saline Flush) 10 ml FLUSH ASDIRECTED PRN PRN Reason: Keep Vein Open Last Admin: 10/01/20 01:41 Dose: 10 ml Documented by: Sodium Chloride (Saline Flush) 2.5 ml FLUSH ASDIRECTED PRN PRN Reason: Keep Vein Open Last Admin: 10/01/20 01:41 Dose: 2.5 ml Documented by: Vancomycin HCl (Pharmacy To Dose - Vancomycin) 1 dose .XX ASDIRECTED [facility] [place] Discontinued Medications Calcium Gluconate (Calcium Gluconate) 1 gm IVPUSH ONETIME ONE Stop: 10/01/20 06:14 Last Admin: 10/01/20 06:46 Dose: 1 gm Documented by: Calcium Gluconate (Calcium Gluconate) Confirm Administered Dose 1 gm .ROUTE .STK-MED ONE Stop: 10/01/20 06:36 Last Admin: 10/01/20 07:04 Dose: Not Given Documented by: Dextrose/Water (Dextrose 50% In Water) 50 ml IV ASDIRECTED PRN PRN Reason: hyperkalemia Last Admin: 10/01/20 06:47 Dose: 50 ml Documented by: Dextrose/Water (Dextrose 50% In Water) Confirm Administered Dose 50 ml .ROUTE .STK-MED ONE Stop: 10/01/20 06:36 Last Admin: 10/01/20 07:04 Dose: Not Given Documented by: Furosemide (Lasix) 20 mg PO DAILY [facility] Glucagon (Glucagen) 1 mg IM ASDIRECTED PRN PRN Reason: Hypoglycemia Lactated Ringer's (Ringers, Lactated) 1,000 mls @ 999 mls/hr IV .BOLUS ONE Stop: 10/01/20 02:34 Last Admin: 10/01/20 01:43 Dose: 999 mls/hr Documented by: Cefepime HCl 2 gm/ Premix 50 mls @ 100 mls/hr IV ONETIME ONE Stop: 10/01/20 02:23 Last Admin: 10/01/20 03:43 Dose: 100 mls/hr Documented by: Lactated Ringer's (Ringers, Lactated) 1,000 mls @ 999 mls/hr IV .BOLUS ONE Stop: 10/01/20 03:19 Last Admin: 10/01/20 02:54 Dose: 999 mls/hr Documented by: Lactated Ringer's (Ringers, Lactated) 1,000 mls @ 999 mls/hr IV .BOLUS ONE Stop: 10/01/20 07:22 Last Admin: 10/01/20 06:48 Dose: 999 mls/hr Documented by: Vancomycin HCl 2 gm/ Premix 400 mls @ 200 mls/hr IV NOW ONE Stop: 10/01/20 08:59 Last Admin: 10/01/20 08:04 Dose: 200 mls/hr Documented by: Lactated Ringer's (Ringers, Lactated) 500 mls @ 999 mls/hr IV .BOLUS ONE Stop: 10/01/20 07:12 Last Admin: 10/01/20 07:55 Dose: 999 mls/hr Documented by: Lactated Ringer's (Ringers, Lactated) 1,000 mls @ 125 mls/hr IV ASDIRECTED [facility] Last Admin: 10/03/20 05:13 Dose: 125 mls/hr Documented by: Cefepime HCl 2 gm/ Premix 50 mls @ 100 mls/hr IV Q8H FIDELIA Last Admin: 10/02/20 06:18 Dose: 100 mls/hr Documented by: Magnesium Sulfate (Magnesium Sulfate In Water Premix) 2 gm in 50 mls @ 50 mls/hr IV ONETIME ONE Stop: 10/02/20 09:14 Last Admin: 10/02/20 08:25 Dose: 50 mls/hr Documented by: Sodium Chloride (Normal Saline) 1,000 mls @ 100 mls/hr IV ASDIRECTED FIDELIA Insulin Human Regular (Novolin R) 10 unit IVPUSH ONETIME ONE Stop: 10/01/20 06:18 Last Admin: 10/01/20 06:46 Dose: 10 unit Documented by: - Exam General: Alert, Oriented Lungs: Normal Respiratory Effort, Rales, Wheezing Cardiovascular: Regular Rate, Regular Rhythm GI/Abdominal Exam: Normal Bowel Sounds, Soft, Non-Tender Extremities: No Pedal Edema Wound/Incisions: Dressing Dry and Intact (sacral pressure ulcer), No Drainage Psy/Mental Status: Alert Sepsis Event Note - Evaluation Sepsis Screening Result: No Definite Risk - Focused Exam Vital Signs: Vital Signs Temp Pulse Resp BP Pulse Ox 10/04/20 11:47 98.3 F 89 18 134/81 93 L 10/04/20 07:00 97.7 F 90 18 136/78 94 L 10/04/20 04:18 97.3 F 85 20 134/83 93 L - Problem List Review Problem List Initiated/Reviewed/Updated: Yes - My Orders Last 24 Hours: My Active Orders 10/03/20 16:42 Dextrose 50% in Water 50 ml IV ASDIRECTED PRN Glucagon,Human Recombinant [GlucaGen] 1 mg IM ASDIRECTED PRN 10/03/20 17:00 Insulin Aspart [NovoLOG] See Protocol SUBCUT TIDAC 10/04/20 12:20 CORONAVIRUS COVID-19 MARIA T [MOLEC] Urgent 10/05/20 15:00 VANCOMYCIN TROUGH [CHEM] Routine - Plan Plan:: Sepsis/UTI- Sepsis resolved and UTI appropriately treated with Vancomycin, Cefepime, afebrile, normotensive. D/C IV fluids. Blood cultures negative for zari wth. I&O's, heparin 5000 units Q12, pantoprazole 40 mg. DONG-Resolved. On admission patient had BUN 47, creatinine 4.8. Todays labs, BUN 27, creatinine 1.3. Sacral Ulcer- Wound therapy consulted and made recommendation to contact general surgery. General surgery contacted and made recommendation to have patient seen by plastic surgery. General surgery did not assess wound. Chest x-ray ordered this morning due to physical exam findings of wheezing and rails. Chest x-ray noted atelectasis bilaterally, with patchy opacity in the right lung, possibly infiltrate. Patient instructed to use incentive spirometry throughout the day. Will monitor for signs of pulmonary edema or infection.
[2020-10-05] MEDS: Albuterol/Ipratropium 3.0-0.5 MG/3 ML Neb Soln NEB PRN (01:36)
--- NOTE | 2020-10-05 04:12 | PCM.SN.2 ---
- Free Text/Narrative Note: 10/05/2020, 4:10 AM: ER physician: Responded to rapid alert which was called on patient secondary to unresponsive state. Upon my arrival to the ED, the patient was noted to be pulseless with occasional agonal respirations. Patient's pupils were fixed and dilated. Discussed case with patient's RN. Patient is a DNR/DNI. Dr. Jarvis notified of patient's condition and this time agrees with no active resuscitation. Patient's initial heart rhythm reveals a bradycardic PEA rhythm at a rate of 30/min. During my conversation with Dr. Jarvis, patient's heart rhythm changed to ventricular tachycardia. Patient pronounced by me at 2:55 AM.
--- NOTE | 2020-10-05 16:56 | PCM.DCSUM1 ---
Discharge Summary - Hospital Course Free Text/Narrative:: 69-year-old male patient who resides at [facility], admitted on 10-01-2020 for Severe sepsis secondary to a UTI, DONG (BUN 47 Creatinine 4.8) hyperkalemia, (K+ 5.5) and poor urine output. On admission patient was tachycardic, tachypneic, hypotensive with fluctuations in MAP's (58, 78, 64). Patient was given 4.5L of LR and started on IV Vancomycin and Cefepime. Patient presented to the ED with tachycardia, hypotension, discolored urine, hypoxia and severe vomiting. On admission patient denied fever, chills, nausea, vomiting, SOB, chest pain. On questioning it was difficult to determine if the patient understood the questions being asked. At the time of admission, patients sister was contacted. Patient stated that his sister helps with all of his medical decisions. Sister was informed of the severity of her brothers condition. Patient is DNR/DNI, which sister understands and states that she does not want us to provide additional support such as central line and pressor medications. Patient had a significant past medical history including OR, hypertension, high cholesterol, CAD, BPH, renal disease, recurrent UTIs, diabetes type 2, large pressure ulcer of the sacral region which was chronic on admission and was seen by wound care during patients admission course. Patient during admission continued to receive treatment with IV antibiotics, IV fluids. Blood cultures were obtained which showed no growth, urine culture was obtained which showed no growth. Patients sepsis as well as DONG was resolved during admission and prior to patient's kidney function was BUN 27, creatinine 1.3. Patient's hyperkalemia was also resolved during admission. Chest x-ray obtained prior to showed atelectasis bilaterally with possible infiltrate in the right lung. Patient was advised to sit upright and use his incentive spirometry throughout the day. Patient was not short of breath and was maintaining oxygen saturations between 92-94% on room air. Patient was pronounced at approximately 2:55 AM on 10-05-2020 per documenta tion. A rapid response was initiated by the nursing staff on the medical floor due to the patient becoming suddenly unresponsive. Patient's CODE STATUS was DNRDNI. Prior to patient was afebrile, with temperature 99.5 F, pulse rate 82, heart rate of 20, on room air with O2 saturations 93%, blood pressure 153/86. Patients family was contacted. - Discharge Data Discharge Date: 10/05/20 Discharge Disposition: 20 Condition: - Referral to Home Health Primary Care Physician: Gibson Crisostomo MD - Patient Summary/Data Consults: Consultations 10/02/20 08:15 Consult to Wound Care Services [CONS] Routine - Discharge Plan *PRESCRIPTION DRUG MONITORING PROGRAM REVIEWED*: Not Applicable *COPY OF PRESCRIPTION DRUG MONITORING REPORT IN PATIENT JOHANNA: Not Applicable Home Medications: Home Meds Finasteride 5 mg PO DAILY 08/04/16 [History] Aspirin [Halfprin] 81 mg PO DAILY 05/27/19 [History] Furosemide [Lasix] 20 mg PO DAILY 05/27/19 [History] Multivitamin [Multivitamins] 1 tab PO DAILY 05/27/19 [History] Tamsulosin HCl [Flomax] 0.4 mg PO DAILY 05/27/19 [History] Menthol [Biofreeze] 1 applic TOP BID 10/04/20 [History] Forms: ED Department Discharge Referrals: Gibson Crisostomo MD [Primary Care Provider] - 10/15/20 10:45 am - Discharge Summary/Plan Comment DC Time >30 min.: No Discharge Summary/Plan Comment: Patient - Patient Data Vitals - Most Recent: Last Vital Signs Temp 99.0 F 10/05/20 00:00 Pulse 82 10/05/20 00:00 Resp 20 10/05/20 00:00 BP 153/86 H 10/05/20 00:00 Pulse Ox 93 L 10/05/20 00:00 Weight - Most Recent: 232 lb 1.6 oz Lab Results - Last 24 hrs: Laboratory Results - last 24 hr 10/05/20 10/05/20 Range/Units 02:36 02:52 POC Glucose 202 H 205 H (60-110) mg/dL LITA Results - Last 24 hrs: Microbiology 10/03/20 16:00 Urine Culture - Final Urine, Clean Catch No Growth 10/01/20 02:05 Aerobic Blood Culture - Preliminary Blood - Venous - Lab Draw NO GROWTH AFTER 4 DAYS Anaerobic Blood Culture - Preliminary NO GROWTH AFTER 4 DAYS 10/01/20 01:30 Aerobic Blood Culture - Preliminary Blood - Venous NO GROWTH AFTER 4 DAYS Anaerobic Blood Culture - Preliminary NO GROWTH AFTER 4 DAYS Med Orders - Current: Current Medications Discontinued Medications Albuterol/Ipratropium (Duoneb 3.0-0.5 Mg/3 Ml) 3 ml NEB Q4HRRT PRN PRN Reason: SOB and Wheezes Last Admin: 10/05/20 01:36 Dose: 3 ml Documented by: Calcium Gluconate (Calcium Gluconate) 1 gm IVPUSH ONETIME ONE Stop: 10/01/20 06:14 Last Admin: 10/01/20 06:46 Dose: 1 gm Documented by: Calcium Gluconate (Calcium Gluconate) Confirm Administered Dose 1 gm .ROUTE .STK-MED ONE Stop: 10/01/20 06:36 Last Admin: 10/01/20 07:04 Dose: Not Given Documented by: Dextrose/Water (Dextrose 50% In Water) 50 ml IV ASDIRECTED PRN PRN Reason: hyperkalemia Last Admin: 10/01/20 06:47 Dose: 50 ml Documented by: Dextrose/Water (Dextrose 50% In Water) Confirm Administered Dose 50 ml .ROUTE .STK-MED ONE Stop: 10/01/20 06:36 Last Admin: 10/01/20 07:04 Dose: Not Given Documented by: Dextrose/Water (Dextrose 50% In Water) 50 ml IV ASDIRECTED PRN PRN Reason: Hypoglycemia Finasteride (Proscar) 5 mg PO DAILY [facility] Last Admin: 10/04/20 09:22 Dose: 5 mg Documented by: Furosemide (Lasix) 20 mg PO DAILY [facility] Glucagon (Glucagen) 1 mg IM ASDIRECTED PRN PRN Reason: Hypoglycemia Glucagon (Glucagen) 1 mg IM ASDIRECTED PRN PRN Reason: Hypoglycemia Heparin Sodium (Porcine) (Heparin Sodium) 5,000 units SUBCUT Q12H [facility] Last Admin: 10/04/20 19:00 Dose: 5,000 units Documented by: Lactated Ringer's (Ringers, Lactated) 1,000 mls @ 999 mls/hr IV .BOLUS ONE Stop: 10/01/20 02:34 Last Admin: 10/01/20 01:43 Dose: 999 mls/hr Documented by: Cefepime HCl 2 gm/ Premix 50 mls @ 100 mls/hr IV ONETIME ONE Stop: 10/01/20 02:23 Last Admin: 10/01/20 03:43 Dose: 100 mls/hr Documented by: Lactated Ringer's (Ringers, Lactated) 1,000 mls @ 999 mls/hr IV .BOLUS ONE Stop: 10/01/20 03:19 Last Admin: 10/01/20 02:54 Dose: 999 mls/hr Documented by: Lactated Ringer's (Ringers, Lactated) 1,000 mls @ 999 mls/hr IV .BOLUS ONE Stop: 10/01/20 07:22 Last Admin: 10/01/20 06:48 Dose: 999 mls/hr Documented by: Pantoprazole Sodium 40 mg/ (Sodium Chloride) 10 mls @ 300 mls/hr IV BID [facility] Last Admin: 10/04/20 21:35 Dose: 300 mls/hr Documented by: Vancomycin HCl 2 gm/ Premix 400 mls @ 200 mls/hr IV NOW ONE Stop: 10/01/20 08:59 Last Admin: 10/01/20 08:04 Dose: 200 mls/hr Documented by: Lactated Ringer's (Ringers, Lactated) 500 mls @ 999 mls/hr IV .BOLUS ONE Stop: 10/01/20 07:12 Last Admin: 10/01/20 07:55 Dose: 999 mls/hr Documented by: Lactated Ringer's (Ringers, Lactated) 1,000 mls @ 125 mls/hr IV ASDIRECTED [facility] Last Admin: 10/03/20 05:13 Dose: 125 mls/hr Documented by: Vancomycin HCl 1.5 gm/ Premix 300 mls @ 200 mls/hr IV Q24H [facility] Last Admin: 10/04/20 15:12 Dose: 200 mls/hr Documented by: Cefepime HCl 2 gm/ Premix 50 mls @ 100 mls/hr IV Q8H [facility] Last Admin: 10/02/20 06:18 Dose: 100 mls/hr Documented by: Magnesium Sulfate (Magnesium Sulfate In Water Premix) 2 gm in 50 mls @ 50 mls/hr IV ONETIME ONE Stop: 10/02/20 09:14 Last Admin: 10/02/20 08:25 Dose: 50 mls/hr Documented by: Cefepime HCl 2 gm/ Premix 50 mls @ 100 mls/hr IV Q12H [facility] Last Admin: 10/04/20 18:59 Dose: 100 mls/hr Documented by: Sodium Chloride (Normal Saline) 1,000 mls @ 100 mls/hr IV ASDIRECTED [facility] Insulin Aspart (Novolog) 0 unit SUBCUT TIDAC [facility]; Protocol Last Admin: 10/04/20 17:31 Dose: 1 unit Documented by: Insulin Human Regular (Novolin R) 10 unit IVPUSH ONETIME ONE Stop: 10/01/20 06:18 Last Admin: 10/01/20 06:46 Dose: 10 unit Documented by: Nystatin (Nystop) 0 gm TOP TID [facility] Last Admin: 10/04/20 21:35 Dose: 1 applic Documented by: Menthol [Biofreeze] (1 Applic) 1 each TOP BID PRN PRN Reason: Pain Polyethylene Glycol (Miralax) 17 gm PO DAILY PRN PRN Reason: Constipation Sodium Chloride (Saline Flush) 10 ml FLUSH ASDIRECTED PRN PRN Reason: Keep Vein Open Last Admin: 10/01/20 01:41 Dose: 10 ml Documented by: Sodium Chloride (Saline Flush) 2.5 ml FLUSH ASDIRECTED PRN PRN Reason: Keep Vein Open Last Admin: 10/01/20 01:41 Dose: 2.5 ml Documented by: Vancomycin HCl (Pharmacy To Dose - Vancomycin) 1 dose .XX ASDIRECTED [facility]
--- NOTE | 2020-10-08 11:40 | ECHO ---
EXAM DATE: 10/01/20 PATIENT'S AGE: 69 The ECHO report has been scanned into [employer] and can be seen in this patient's EMR (Electronic Medical Record) under the REPORTS section. The report has also been scanned into PACS. [facility]
== END 2020-10-05 02:55 | disposition expired | DRG 871 ==
LOC: MW.ED 01:28 → MW.ICU 04:41 → UNDOADMIN 04:59 → MW.ICU 04:59 → MW.MS 10-03 13:03
PROVIDERS: ADMIT Student in an Organized Health Care Education/Training Program; ATTEND Student in an Organized Health Care Education/Training Program
DX: A41.9 Sepsis, unspecified organism (principal); L89.154 Pressure ulcer of sacral region, stage 4; N39.0 Urinary tract infection, site not specified; N13.8 Other obstructive and reflux uropathy; I47.2 Ventricular tachycardia; N17.9 Acute kidney failure, unspecified; R65.20 Severe sepsis without septic shock; E87.5 Hyperkalemia; Z66 Do not resuscitate; H91.90 Unspecified hearing loss, unspecified ear; E78.00 Pure hypercholesterolemia, unspecified; I25.2 Old myocardial infarction; E11.622 Type 2 diabetes mellitus with other skin ulcer; I10 Essential (primary) hypertension; K02.9 Dental caries, unspecified; I12.9 Hypertensive chronic kidney disease with stage 1 through stage 4 chronic kidney disease, or unspecified chronic kidney disease; E11.22 Type 2 diabetes mellitus with diabetic chronic kidney disease; K63.5 Polyp of colon; K57.90 Diverticulosis of intestine, part unspecified, without perforation or abscess without bleeding; I25.10 Atherosclerotic heart disease of native coronary artery without angina pectoris; N40.1 Benign prostatic hyperplasia with lower urinary tract symptoms; F60.9 Personality disorder, unspecified; F03.90 Unspecified dementia, unspecified severity, without behavioral disturbance, psychotic disturbance, mood disturbance, and anxiety; N39.498 Other specified urinary incontinence; R26.89 Other abnormalities of gait and mobility; M62.81 Muscle weakness (generalized); R26.2 Difficulty in walking, not elsewhere classified; R06.89 Other abnormalities of breathing; M19.90 Unspecified osteoarthritis, unspecified site; E11.9 Type 2 diabetes mellitus without complications; E66.9 Obesity, unspecified; Z98.890 Other specified postprocedural states; Z99.81 Dependence on supplemental oxygen; Z68.34 Body mass index [BMI] 34.0-34.9, adult; Z79.82 Long term (current) use of aspirin; Z79.899 Other long term (current) drug therapy; Z20.828 Contact with and (suspected) exposure to other viral communicable diseases
CPT/HCPCS: 36415; 71045; 71045-26; 80048; 80053; 80202; 81001; 82962; 83605; 83735; 85025; 87040; 87086; 93005; 93010; 93306; 94640; 96365; 99283; 99291; A9270-GY; C9113; J0610; J0692; J1644; J1815-GY; J3370; J3475; J7120; J7620-GY; U0002